=== PATIENT | male | born 1990 | race Caucasian/White ===

== ENCOUNTER 2023-07-07 01:41 | Inpatient (IN) | payer BC ==
[~2023-07-07] VITALS: Ht 177.8 cm; Wt 74.0 kg
[~2023-07-07 01:41] MED LIST: CIPR-202 PO; FOLI0.4T6 PO; PANT-47 PO; POTA-366 PO; THIA50TA10 PO
[2023-07-07 02:04] LABS: BASOPHILS % (AUTO) 0.3 % (0-1); EOSINOPHILS # (AUTO) 0.4 X10'3 (0-0.9); EOSINOPHILS % (AUTO) 3.5 % (0-6); HEMOGLOBIN 11.5 g/dl (14.0-17.9); LYMPHOCYTES # (AUTO) 1.9 X10'3 (1.1-4.8); LYMPHOCYTES % (AUTO) 15.7 % (21-51); MEAN CORPUSCULAR HEMOGLOBIN 31.7 PG (27.0-31.0); MEAN CORPUSCULAR HGB CONC 33.7 g/dL (33.0-36.5); MEAN CORPUSCULAR VOLUME 94.1 FL (78-98); MEAN PLATELET VOLUME 7.7 FL (7.4-10.4); MONOCYTES # (AUTO) 1.7 X10'3 (0-0.9); NEUTROPHILS # (AUTO) 7.9 X10'3 (1.8-7.7); NEUTROPHILS % (AUTO) 66.5 % (42-75); PLATELET COUNT 410 X10'3 (140-440); RED BLOOD COUNT 3.62 X10'6 (4.70-6.10); RED CELL DISTRIBUTION WIDTH 14.1 % (11.5-14.5); WHITE BLOOD COUNT 11.9 X10'3 (4.5-11.0)
[2023-07-07] MEDS ORDERED: ondansetron/PF 4mg/2ml inj IV ONE (02:05)
[2023-07-07] MEDS ORDERED: morphine 4 MG/ML inj SYRINge IV ONE ×4 (02:05→07:25)
[2023-07-07 02:18] LABS: ALANINE AMINOTRANSFERASE 22 U/L (12-78); ALBUMIN 2.9 G/DL (3.4-5.0); ALBUMIN/GLOBULIN RATIO 0.6 (1.1-1.5); ALKALINE PHOSPHATASE 167 IU/L (46-116); AMYLASE 141 U/L (25-115); ANION GAP 7 (8-16); ASPARTATE AMINO TRANSFERASE 29 U/L (10-37); BILIRUBIN,TOTAL 0.2 MG/DL (0.1-1.0); BLOOD UREA NITROGEN 1 MG/DL (7-18); BUN/CREATININE RATIO 1.5 (10.0-20.0); CHLORIDE 97 MMOL/L (99-107); CREATININE 0.68 MG/DL (0.60-1.10); GLUCOSE 121 MG/DL (70-104); SODIUM 134 MMOL/L (135-145); TOTAL CARBON DIOXIDE 30.1 MMOL/L (24-32); TOTAL PROTEIN 7.4 G/DL (6.4-8.2); eCRCL 160 ML/MIN; eGFR > 90 ML/MIN
[2023-07-07 02:25] LABS: LIPASE 365 U/L (16-77)
[2023-07-07 02:27] LABS: POTASSIUM 2.8 MMOL/L (3.5-5.1)
[2023-07-07] MEDS ORDERED: potassium Cl 40MEQ/1/2NS 520ml 520 ML IV ONE (03:20)
[2023-07-07] MEDS ORDERED: normal saline 1000ML IV soln IVB ONE (03:20)
[2023-07-07] MEDS ORDERED: potassium Cl 40MEQ/1/2NS 520ml 520 ML IV PRN ×2 (08:15→09:40)
[2023-07-07] MEDS ORDERED: magnesium 4gm in 100ml NS 100 ML IV PRN ×2 (08:15→09:40)
[2023-07-07] MEDS ORDERED: potassium Cl 20 mEq SR tablet PO PRN ×4 (08:15→09:40)
[2023-07-07] MEDS ORDERED: magnesium Cl slow-release 64mg tablet PO PRN ×2 (08:15→09:40)
[2023-07-07] MEDS ORDERED: magnesium hydroxide 30ml (MOM) UD suspension PO PRN (09:40)
[2023-07-07] MEDS ORDERED: mag hydrox/Alum hydrox/simeth 30ml oral suspension PO PRN (09:40)
[2023-07-07] MEDS ORDERED: magnesium 2GM in 50ml NS 50 ML IV PRN (09:40)
[2023-07-07] MEDS ORDERED: HYDROcodone/acetaminophen 5mg/325mg tablet PO PRN (09:40)
[2023-07-07] MEDS ORDERED: HYDROmorphone/PF 0.2 MG/ML SYRINGE IV PRN (09:40)
[2023-07-07] MEDS ORDERED: acetaminophen 325mg tablet PO PRN (09:40)
[2023-07-07] MEDS: dextrose 5%-1/2 normal saline 1,000 ML IV SCH ×3 (12:08→22:06)
[2023-07-07] MEDS: HYDROmorphone inj. 0.5 MG/0.5 ML DISP.SYRIN IV PRN ×3 (12:13→20:05)
[2023-07-07] MEDS ORDERED: FOLI0.8T3 PO (13:17)
[2023-07-07] MEDS ORDERED: CIPR500T5 PO (13:18)
[2023-07-07] MEDS ORDERED: POTA-366 PO (13:19)
[2023-07-07] MEDS ORDERED: PANT40TA54 PO (13:19)
[2023-07-07] MEDS ORDERED: IBUP-1985 PO (13:20)
[2023-07-07] MEDS ORDERED: non-formulary drug (Ibuprofen 200 MG) PO PRN (13:30)
--- NOTE | 2023-07-07 13:38 | NUR ---
BROUGHT PT WARM PACK OF CHUX FOR ABDOMEN.
[2023-07-07] MEDS: HYDROcodone/acetaminophen 10/325mg tab PO PRN ×3 (13:44→22:36)
[2023-07-07] MEDS: ondansetron/PF 4mg/2ml inj IV PRN (13:44)
[2023-07-07] MEDS ORDERED: ibuprofen 200mg tablet PO PRN (14:14)
[2023-07-07 16:28] LABS: ALANINE AMINOTRANSFERASE 18 U/L (12-78); ALBUMIN 2.5 G/DL (3.4-5.0); ALBUMIN/GLOBULIN RATIO 0.6 (1.1-1.5); ALKALINE PHOSPHATASE 129 IU/L (46-116); ANION GAP 3 (8-16); ASPARTATE AMINO TRANSFERASE 26 U/L (10-37); BILIRUBIN,TOTAL 0.3 MG/DL (0.1-1.0); BLOOD UREA NITROGEN 1 MG/DL (7-18); BUN/CREATININE RATIO 1.9 (10.0-20.0); CALCIUM 8.4 MG/DL (8.5-10.1); CHLORIDE 105 MMOL/L (99-107); CREATININE 0.54 MG/DL (0.60-1.10); GLUCOSE 101 MG/DL (70-104); POTASSIUM 3.1 MMOL/L (3.5-5.1); SODIUM 137 MMOL/L (135-145); TOTAL CARBON DIOXIDE 29.2 MMOL/L (24-32); TOTAL PROTEIN 6.5 G/DL (6.4-8.2); eCRCL 201 ML/MIN; eGFR > 90 ML/MIN
[2023-07-07] MEDS: docusate sod 100mg capsule PO SCH (19:49)
[2023-07-07] MEDS: K and/or MAG REPLACEMENT MC SCH (19:49)
[2023-07-07] MEDS: ciprofloxacin 250mg tablet PO SCH (20:04)
--- NOTE | 2023-07-07 21:23 | NUR ---
RN NOT ANSWERING PHONE FOR REPORT, ANOTHER WILL LOOK FOR HER AND HAVE HER CALL BACK
--- NOTE | 2023-07-07 21:45 | NUR ---
PATIENT ADMITTED TO ROOM 4010A FROM ER FOR ACUTE PANCREATITIS. PLACED COMFORTABLE IN BED. VITAL SIGNS TAKEN AND RECORDED.
[2023-07-07 22:30] VITALS: RESP 18; O2SAT 98
[2023-07-07 22:45] VITALS: BP 161/97; PULSE 85; RESP 20; TEMP 98.7; O2SAT 95
[2023-07-08] MEDS: HYDROmorphone inj. 0.5 MG/0.5 ML DISP.SYRIN IV PRN ×6 (00:57→21:57)
[2023-07-08] MEDS: HYDROcodone/acetaminophen 10/325mg tab PO PRN ×5 (03:06→20:38)
[2023-07-08 06:00] VITALS: BP 159/108; PULSE 79; RESP 16; TEMP 97.2; O2SAT 97
--- NOTE | 2023-07-08 06:30 | NUR ---
Problems reprioritized. Patient report given, questions answered & plan of care reviewed with MARTIN CLARK.
--- NOTE | 2023-07-08 07:02 | NUR ---
Patient in room ORTHO 4010. I have received report from Mari Guerra RN and had the opportunity to ask questions and assume patient care.
[2023-07-08] MEDS: ciprofloxacin 250mg tablet PO SCH ×2 (07:36→19:38)
[2023-07-08] MEDS: docusate sod 100mg capsule PO SCH ×2 (07:37→19:38)
[2023-07-08] MEDS: folic acid 0.4mg tablet PO SCH (07:37)
[2023-07-08] MEDS: potassium Cl 20 mEq SR tablet PO SCH (07:38)
[2023-07-08] MEDS: pantoprazole 40mg Tablet.DR PO SCH (07:38)
[2023-07-08] MEDS: enoxaparin 40mg/0.4ml syringe SUBCUT SCH (07:39)
[2023-07-08 07:50] LABS: BASOPHILS % (AUTO) 0.3 % (0-1); EOSINOPHILS # (AUTO) 0.3 X10'3 (0-0.9); EOSINOPHILS % (AUTO) 2.7 % (0-6); HEMOGLOBIN 11.4 g/dl (14.0-17.9); INR 1.1 INR; LYMPHOCYTES # (AUTO) 1.8 X10'3 (1.1-4.8); LYMPHOCYTES % (AUTO) 17.5 % (21-51); MEAN CORPUSCULAR HEMOGLOBIN 31.5 PG (27.0-31.0); MEAN CORPUSCULAR HGB CONC 33.6 g/dL (33.0-36.5); MEAN CORPUSCULAR VOLUME 93.8 FL (78-98); MEAN PLATELET VOLUME 7.8 FL (7.4-10.4); MONOCYTES # (AUTO) 1.2 X10'3 (0-0.9); MONOCYTES % (AUTO) 11.9 % (2-12); NEUTROPHILS # (AUTO) 6.8 X10'3 (1.8-7.7); NEUTROPHILS % (AUTO) 67.6 % (42-75); PLATELET COUNT 489 X10'3 (140-440); PROTHROMBIN TIME 11.6 SECONDS (9.0-12.0); RED BLOOD COUNT 3.62 X10'6 (4.70-6.10); RED CELL DISTRIBUTION WIDTH 14.4 % (11.5-14.5); WHITE BLOOD COUNT 10.1 X10'3 (4.5-11.0)
[2023-07-08 08:00] VITALS: RESP 16; O2SAT 97
[2023-07-08] MEDS: K and/or MAG REPLACEMENT MC SCH ×2 (08:00→19:27)
[2023-07-08 08:28] LABS: ALANINE AMINOTRANSFERASE 22 U/L (12-78); ALBUMIN 2.8 G/DL (3.4-5.0); ALBUMIN/GLOBULIN RATIO 0.6 (1.1-1.5); ALKALINE PHOSPHATASE 145 IU/L (46-116); AMYLASE 143 U/L (25-115); ANION GAP 6 (8-16); ASPARTATE AMINO TRANSFERASE 22 U/L (10-37); BILIRUBIN,TOTAL 0.3 MG/DL (0.1-1.0); BLOOD UREA NITROGEN 3 MG/DL (7-18); BUN/CREATININE RATIO 4.5 (10.0-20.0); CALCIUM 9.5 MG/DL (8.5-10.1); CHLORIDE 101 MMOL/L (99-107); CREATININE 0.66 MG/DL (0.60-1.10); FERRITIN 587 NG/ML (26-388); GLUCOSE 90 MG/DL (70-104); MAGNESIUM 2.4 MG/DL (1.5-2.4); PHOSPHORUS 3.8 MG/DL (2.3-4.5); POTASSIUM 3.9 MMOL/L (3.5-5.1); SODIUM 138 MMOL/L (135-145); TOTAL CARBON DIOXIDE 31.5 MMOL/L (24-32); TOTAL PROTEIN 7.5 G/DL (6.4-8.2); eCRCL 164 ML/MIN; eGFR > 90 ML/MIN
[2023-07-08 09:01] LABS: LIPASE 310 U/L (16-77)
[2023-07-08 09:23] VITALS: RESP 16; O2SAT 97
[2023-07-08 10:00] VITALS: BP 146/106; PULSE 80; RESP 14; TEMP 97.7; O2SAT 99
[2023-07-08 11:20] LABS: % IRON SATURATION 7 % (11-46); IRON 15 UG/DL (53-167); TOTAL IRON BINDING CAPACITY 222 UG/DL (259-388)
--- NOTE | 2023-07-08 14:45 | NUR ---
CLINICAL NURSING PROFESSOR documentation: I have reviewed and agree with all interventions, assessments performed and documented by Ewelina Garcia LVN.
[2023-07-08] MEDS: dextrose 5%-1/2 normal saline 1,000 ML IV SCH (15:40)
[2023-07-08 18:00] VITALS: BP 125/88; PULSE 70; RESP 14; TEMP 98.6; O2SAT 96
[2023-07-08] MEDS: ondansetron/PF 4mg/2ml inj IV PRN (19:40)
[2023-07-08 22:00] VITALS: BP 138/104; PULSE 71; RESP 16; TEMP 98.1; O2SAT 99
[2023-07-09] MEDS: HYDROcodone/acetaminophen 10/325mg tab PO PRN ×6 (00:44→21:15)
[2023-07-09] MEDS: HYDROmorphone inj. 0.5 MG/0.5 ML DISP.SYRIN IV PRN ×6 (01:53→23:21)
[2023-07-09] MEDS: dextrose 5%-1/2 normal saline 1,000 ML IV SCH ×2 (01:57→13:11)
--- NOTE | 2023-07-09 05:43 | NUR ---
I agree wit FOREIGN BANKNOTE TELLER physical assessment.
[2023-07-09 06:00] VITALS: BP 131/95; PULSE 66; RESP 16; TEMP 97.3; O2SAT 98
[2023-07-09 06:11] LABS: BASOPHILS % (AUTO) 0.3 % (0-1); EOSINOPHILS # (AUTO) 0.3 X10'3 (0-0.9); EOSINOPHILS % (AUTO) 3.2 % (0-6); HEMATOCRIT 33.6 % (42.0-52.0); HEMOGLOBIN 11.3 g/dl (14.0-17.9); INR 1.2 INR; LYMPHOCYTES # (AUTO) 1.4 X10'3 (1.1-4.8); LYMPHOCYTES % (AUTO) 15.6 % (21-51); MEAN CORPUSCULAR HEMOGLOBIN 31.5 PG (27.0-31.0); MEAN CORPUSCULAR HGB CONC 33.7 g/dL (33.0-36.5); MEAN CORPUSCULAR VOLUME 93.5 FL (78-98); MEAN PLATELET VOLUME 7.4 FL (7.4-10.4); MONOCYTES # (AUTO) 0.6 X10'3 (0-0.9); MONOCYTES % (AUTO) 6.9 % (2-12); NEUTROPHILS # (AUTO) 6.9 X10'3 (1.8-7.7); PLATELET COUNT 486 X10'3 (140-440); PROTHROMBIN TIME 12.4 SECONDS (9.0-12.0); RED CELL DISTRIBUTION WIDTH 14.2 % (11.5-14.5); WHITE BLOOD COUNT 9.3 X10'3 (4.5-11.0)
[2023-07-09 06:25] LABS: ALANINE AMINOTRANSFERASE 18 U/L (12-78); ALBUMIN 2.8 G/DL (3.4-5.0); ALBUMIN/GLOBULIN RATIO 0.6 (1.1-1.5); ALKALINE PHOSPHATASE 140 IU/L (46-116); AMYLASE 117 U/L (25-115); ANION GAP 6 (8-16); ASPARTATE AMINO TRANSFERASE 18 U/L (10-37); BILIRUBIN,TOTAL 0.3 MG/DL (0.1-1.0); BLOOD UREA NITROGEN 4 MG/DL (7-18); BUN/CREATININE RATIO 6.1 (10.0-20.0); CALCIUM 9.4 MG/DL (8.5-10.1); CHLORIDE 99 MMOL/L (99-107); CREATININE 0.66 MG/DL (0.60-1.10); GLUCOSE 98 MG/DL (70-104); MAGNESIUM 2.3 MG/DL (1.5-2.4); PHOSPHORUS 4.5 MG/DL (2.3-4.5); POTASSIUM 3.7 MMOL/L (3.5-5.1); SODIUM 135 MMOL/L (135-145); TOTAL CARBON DIOXIDE 30.3 MMOL/L (24-32); TOTAL PROTEIN 7.3 G/DL (6.4-8.2); eCRCL 164 ML/MIN; eGFR > 90 ML/MIN
--- NOTE | 2023-07-09 06:25 | NUR ---
Problems reprioritized. Patient report given, questions answered & plan of care reviewed with Megan. Osvaldo HAYS.
[2023-07-09 06:26] LABS: LIPASE 295 U/L (16-77)
[2023-07-09] MEDS: K and/or MAG REPLACEMENT MC SCH ×2 (07:18→18:26)
[2023-07-09] MEDS: ciprofloxacin 250mg tablet PO SCH ×2 (08:38→19:19)
[2023-07-09] MEDS: pantoprazole 40mg Tablet.DR PO SCH (08:38)
[2023-07-09] MEDS: docusate sod 100mg capsule PO SCH ×2 (08:38→19:20)
[2023-07-09] MEDS: folic acid 0.4mg tablet PO SCH (08:39)
[2023-07-09] MEDS: potassium Cl 20 mEq SR tablet PO SCH (08:39)
[2023-07-09] MEDS: enoxaparin 40mg/0.4ml syringe SUBCUT SCH (08:40)
[2023-07-09 10:00] VITALS: BP 138/100; PULSE 66; RESP 16; TEMP 97.6; O2SAT 96
[2023-07-09 11:56] VITALS: BP 132/97
[2023-07-09 18:00] VITALS: BP 134/72; PULSE 77; RESP 17; TEMP 97.3; O2SAT 99
--- NOTE | 2023-07-09 18:30 | NUR ---
Report given to Chi CLARK, pt walked hallways and still having pain.
[2023-07-09 22:00] VITALS: BP 136/100; PULSE 72; RESP 19; TEMP 97.6; O2SAT 100
[2023-07-10] VITALS (7 sets, daily range): BP systolic 126–166; BP diastolic 79–98; PULSE 75–88; RESP 14–20; TEMP 97.6–98.6; O2SAT 96–99
[2023-07-10] MEDS: dextrose 5%-1/2 normal saline 1,000 ML IV SCH ×3 (01:51→17:49)
[2023-07-10] MEDS: HYDROcodone/acetaminophen 10/325mg tab PO PRN ×5 (01:51→22:13)
[2023-07-10] MEDS: HYDROmorphone inj. 0.5 MG/0.5 ML DISP.SYRIN IV PRN ×2 (03:33→09:00)
[2023-07-10 05:15] LABS: INR 1.3 INR; PROTHROMBIN TIME 13.5 SECONDS (9.0-12.0)
[2023-07-10 05:19] LABS: LYMPHOCYTES # (AUTO) 1.5 X10'3 (1.1-4.8); MEAN CORPUSCULAR VOLUME 92.7 FL (78-98); NEUTROPHILS # (AUTO) 7.4 X10'3 (1.8-7.7)
[2023-07-10 05:21] LABS: BASOPHILS % (AUTO) 0.4 % (0-1); EOSINOPHILS # (AUTO) 0.4 X10'3 (0-0.9); EOSINOPHILS % (AUTO) 3.8 % (0-6); HEMATOCRIT 35.1 % (42.0-52.0); MEAN CORPUSCULAR HEMOGLOBIN 31.7 PG (27.0-31.0); MEAN CORPUSCULAR HGB CONC 34.3 g/dL (33.0-36.5); MEAN PLATELET VOLUME 7.6 FL (7.4-10.4); MONOCYTES # (AUTO) 0.8 X10'3 (0-0.9); MONOCYTES % (AUTO) 7.6 % (2-12); NEUTROPHILS % (AUTO) 73.2 % (42-75); PLATELET COUNT 576 X10'3 (140-440); RED BLOOD COUNT 3.79 X10'6 (4.70-6.10); RED CELL DISTRIBUTION WIDTH 14.2 % (11.5-14.5); WHITE BLOOD COUNT 10.1 X10'3 (4.5-11.0)
[2023-07-10] MEDS: ondansetron/PF 4mg/2ml inj IV PRN (05:31)
[2023-07-10 05:33] LABS: ALANINE AMINOTRANSFERASE 17 U/L (12-78); ALBUMIN 3.1 G/DL (3.4-5.0); ALBUMIN/GLOBULIN RATIO 0.6 (1.1-1.5); ALKALINE PHOSPHATASE 145 IU/L (46-116); AMYLASE 118 U/L (25-115); ANION GAP 6 (8-16); ASPARTATE AMINO TRANSFERASE 18 U/L (10-37); BILIRUBIN,TOTAL 0.2 MG/DL (0.1-1.0); BLOOD UREA NITROGEN 3 MG/DL (7-18); BUN/CREATININE RATIO 4.4 (10.0-20.0); CALCIUM 9.9 MG/DL (8.5-10.1); CHLORIDE 98 MMOL/L (99-107); CREATININE 0.68 MG/DL (0.60-1.10); GLUCOSE 100 MG/DL (70-104); MAGNESIUM 2.4 MG/DL (1.5-2.4); PHOSPHORUS 4.9 MG/DL (2.3-4.5); POTASSIUM 3.9 MMOL/L (3.5-5.1); SODIUM 134 MMOL/L (135-145); TOTAL CARBON DIOXIDE 29.8 MMOL/L (24-32); eCRCL 160 ML/MIN; eGFR > 90 ML/MIN
[2023-07-10 05:37] LABS: LIPASE 306 U/L (16-77)
--- NOTE | 2023-07-10 05:52 | NUR ---
I agree with [facility] physical assessmen.
--- NOTE | 2023-07-10 06:17 | NUR ---
Problems reprioritized. Patient report given, questions answered & plan of care reviewed with Estela DONATO.
--- NOTE | 2023-07-10 06:41 | NUR ---
Patient in room ORTHO 4010. I have received report from Lawdingo BRAKE PRESS OPERATOR and had the opportunity to ask questions and assume patient care.
[2023-07-10] MEDS: K and/or MAG REPLACEMENT MC SCH ×2 (08:00→20:00)
[2023-07-10] MEDS: ciprofloxacin 250mg tablet PO SCH ×2 (08:20→19:36)
[2023-07-10] MEDS: pantoprazole 40mg Tablet.DR PO SCH (08:20)
[2023-07-10] MEDS: potassium Cl 20 mEq SR tablet PO SCH (08:20)
[2023-07-10] MEDS: enoxaparin 40mg/0.4ml syringe SUBCUT SCH (08:21)
[2023-07-10] MEDS: docusate sod 100mg capsule PO SCH ×2 (08:21→19:37)
[2023-07-10] MEDS: folic acid 0.4mg tablet PO SCH (08:21)
[2023-07-10 15:54] LABS: CHOL/HDL RATIO 4.6 (0.00-4.99); CHOLESTEROL 128 MG/DL (0-200); HDL CHOLESTEROL 28 MG/DL (35-60); LDL CHOLESTEROL 73 MG/DL (50-100); TRIGLYCERIDES 99 MG/DL (20-135)
[2023-07-10] MEDS ORDERED: iohexol 300mg/ml 100ml inj. ONE (16:56)
[2023-07-10] MEDS ORDERED: LIPASE/PROTEASE/AMYLASE 16,800 UNIT CAPSULE.DR PO SCH (17:30)
[2023-07-10] MEDS: LIPASE/PROTEASE/AMYLASE 4,200 unit CAPSULE.DR PO SCH (18:01)
--- NOTE | 2023-07-10 18:41 | NUR ---
patient iv pain medication DC by md. pain consistent during my shift. 07/05 Pendroy 10 mg given q 4 hours but patient denies any relief. MD notified. Patient continues on D5/NS and NPO.
--- NOTE | 2023-07-11 01:09 | NUR ---
page to hospitalist implementation specialist: "pt in 4010A here for pancreatitis reporting 10/10 abd pain. had norco 10/325x1 approx 2 hours ago, ineffective. requesting additional pain medication. Contreras ext [phone]"
[2023-07-11] MEDS: HYDROmorphone inj. 0.5 MG/0.5 ML DISP.SYRIN IV PRN ×3 (01:43→10:02)
[2023-07-11] MEDS: HYDROcodone/acetaminophen 10/325mg tab PO PRN ×4 (03:15→12:46)
--- NOTE | 2023-07-11 06:24 | NUR ---
report to Estela PARQUET FLOOR LAYER
[2023-07-11 06:26] LABS: BASOPHILS # (AUTO) 0.1 X10'3 (0-0.2); BASOPHILS % (AUTO) 0.5 % (0-1); EOSINOPHILS # (AUTO) 0.2 X10'3 (0-0.9); HEMOGLOBIN 12.2 g/dl (14.0-17.9); LYMPHOCYTES # (AUTO) 1.7 X10'3 (1.1-4.8); LYMPHOCYTES % (AUTO) 12.9 % (21-51); MONOCYTES # (AUTO) 0.7 X10'3 (0-0.9); MONOCYTES % (AUTO) 5.2 % (2-12); RED CELL DISTRIBUTION WIDTH 14.4 % (11.5-14.5)
[2023-07-11 06:30] LABS: EOSINOPHILS % (AUTO) 1.5 % (0-6); HEMATOCRIT 35.9 % (42.0-52.0); MEAN CORPUSCULAR HEMOGLOBIN 31.4 PG (27.0-31.0); MEAN CORPUSCULAR VOLUME 92.4 FL (78-98); MEAN PLATELET VOLUME 7.8 FL (7.4-10.4); NEUTROPHILS # (AUTO) 10.4 X10'3 (1.8-7.7); NEUTROPHILS % (AUTO) 79.9 % (42-75); PLATELET COUNT 664 X10'3 (140-440); RED BLOOD COUNT 3.89 X10'6 (4.70-6.10)
[2023-07-11 06:37] LABS: INR 1.6 INR; PROTHROMBIN TIME 16.4 SECONDS (9.0-12.0)
[2023-07-11 06:59] LABS: ALANINE AMINOTRANSFERASE 14 U/L (12-78); ALBUMIN 3.2 G/DL (3.4-5.0); ALBUMIN/GLOBULIN RATIO 0.7 (1.1-1.5); ALKALINE PHOSPHATASE 137 IU/L (46-116); AMYLASE 108 U/L (25-115); ANION GAP 11 (8-16); ASPARTATE AMINO TRANSFERASE 12 U/L (10-37); BILIRUBIN,TOTAL 0.3 MG/DL (0.1-1.0); BLOOD UREA NITROGEN 6 MG/DL (7-18); BUN/CREATININE RATIO 8.1 (10.0-20.0); CALCIUM 9.8 MG/DL (8.5-10.1); CHLORIDE 95 MMOL/L (99-107); CREATININE 0.74 MG/DL (0.60-1.10); GLUCOSE 98 MG/DL (70-104); MAGNESIUM 2.3 MG/DL (1.5-2.4); PHOSPHORUS 4.8 MG/DL (2.3-4.5); POTASSIUM 3.5 MMOL/L (3.5-5.1); SODIUM 133 MMOL/L (135-145); TOTAL CARBON DIOXIDE 27.2 MMOL/L (24-32); eCRCL 147 ML/MIN; eGFR > 90 ML/MIN
[2023-07-11 07:02] VITALS: BP 123/75; PULSE 76; RESP 17; TEMP 98.9; O2SAT 98
[2023-07-11 07:10] LABS: LIPASE 238 U/L (16-77)
[2023-07-11] MEDS: folic acid 0.4mg tablet PO SCH (07:18)
[2023-07-11] MEDS: ciprofloxacin 250mg tablet PO SCH (07:18)
[2023-07-11] MEDS: pantoprazole 40mg Tablet.DR PO SCH (07:18)
[2023-07-11] MEDS: potassium Cl 20 mEq SR tablet PO SCH (07:18)
[2023-07-11] MEDS: LIPASE/PROTEASE/AMYLASE 4,200 unit CAPSULE.DR PO SCH ×2 (07:19→12:47)
[2023-07-11] MEDS: enoxaparin 40mg/0.4ml syringe SUBCUT SCH (07:19)
[2023-07-11] MEDS: K and/or MAG REPLACEMENT MC SCH (08:00)
[2023-07-11] MEDS: docusate sod 100mg capsule PO SCH (08:00)
[2023-07-11 08:56] LABS: LARGE PLATELETS FEW; PLATELET ESTIMATE INCREASED
[2023-07-11 10:00] VITALS: BP 136/91; PULSE 88; RESP 15; TEMP 98.1; O2SAT 98
[2023-07-11] MEDS ORDERED: LIPA1CAP28 PO (10:28)
[2023-07-11 12:46] VITALS: RESP 17
--- NOTE | 2023-07-11 13:30 | NUR ---
I have reviewed and agree with interventions, assessments, and documentation by Estela Sandoval LVN.
[2023-07-11] MEDS ORDERED: METR-159 PO (14:50)
--- NOTE | 2023-07-11 16:18 | NUR ---
Patient discharged home medications sent to pharmacy. I followed up with social welfare research worker and asked them to send out for a referral to PCP. Patients lab values and condition need to be followed up. Expressed concerns to family. Education provided to patient and referrals for outpatient rehabs and help with opitate addiction provided to patient. IV removed. All discharge paper work signed and left with patient.
== END 2023-07-11 14:18 | disposition home or self-care (01) | DRG 439 ==
LOC: ER 01:41 → ED HOLD 09:42 → ORTHO 4S 21:45
PROVIDERS: ADMIT Internal Medicine; ATTEND Internal Medicine
DX: K85.20 Alcohol induced acute pancreatitis without necrosis or infection (principal); K86.3 Pseudocyst of pancreas; E87.6 Hypokalemia; D63.8 Anemia in other chronic diseases classified elsewhere; Z79.1 Long term (current) use of non-steroidal anti-inflammatories (NSAID); Z79.899 Other long term (current) drug therapy
CPT/HCPCS: 36415; 74176; 74178; 80053; 80061; 82150; 82607; 82728; 83540; 83550; 83690; 83735; 84100; 85008; 85025; 85610; 87081; 99285; G0378; J1170; J1650; J2270; J2405; J3480; J3490; J7030; J7042; Q9967

== ENCOUNTER 2023-07-31 06:28 | Inpatient (IN) | payer BC ==
[~2023-07-31] VITALS: Ht 177.8 cm; Wt 75.0 kg
[~2023-07-31 06:28] MED LIST changes: -CIPR-202 PO; +CIPR500T5 PO; -FOLI0.4T6 PO; +FOLI0.8T3 PO; +LIPA1CAP28 PO; -PANT-47 PO; +PANT40TA54 PO; -POTA-366 PO; -THIA50TA10 PO
[2023-07-31 06:31] VITALS: TEMP 97.8
[2023-07-31] MEDS ORDERED: ondansetron/PF 4mg/2ml inj IV ONE (08:40)
[2023-07-31] MEDS ORDERED: ringers solution, lacted 1,000 ML IV ONE (08:40)
[2023-07-31] MEDS ORDERED: morphine 4 MG/ML inj SYRINge IV ONE ×2 (08:40→12:35)
[2023-07-31 09:25] LABS: BASOPHILS % (AUTO) 0.5 % (0-1); EOSINOPHILS # (AUTO) 0.3 X10'3 (0-0.9); EOSINOPHILS % (AUTO) 3.4 % (0-6); HEMATOCRIT 37.1 % (42.0-52.0); HEMOGLOBIN 12.3 g/dl (14.0-17.9); LYMPHOCYTES # (AUTO) 2.3 X10'3 (1.1-4.8); MEAN CORPUSCULAR HEMOGLOBIN 30.7 PG (27.0-31.0); MEAN CORPUSCULAR HGB CONC 33.3 g/dL (33.0-36.5); MEAN CORPUSCULAR VOLUME 92.2 FL (78-98); MEAN PLATELET VOLUME 9.1 FL (7.4-10.4); MONOCYTES # (AUTO) 0.7 X10'3 (0-0.9); MONOCYTES % (AUTO) 9.1 % (2-12); NEUTROPHILS # (AUTO) 4.5 X10'3 (1.8-7.7); PLATELET COUNT 225 X10'3 (140-440); RED BLOOD COUNT 4.02 X10'6 (4.70-6.10); RED CELL DISTRIBUTION WIDTH 14.8 % (11.5-14.5); WHITE BLOOD COUNT 7.8 X10'3 (4.5-11.0)
[2023-07-31 09:27] LABS: ALANINE AMINOTRANSFERASE 24 U/L (12-78); ALBUMIN 3.9 G/DL (3.4-5.0); ALBUMIN/GLOBULIN RATIO 1.1 (1.1-1.5); ALKALINE PHOSPHATASE 100 IU/L (46-116); ANION GAP 8 (8-16); ASPARTATE AMINO TRANSFERASE 18 U/L (10-37); BILIRUBIN,TOTAL 0.3 MG/DL (0.1-1.0); BLOOD UREA NITROGEN 4 MG/DL (7-18); BUN/CREATININE RATIO 5.8 (10.0-20.0); CALCIUM 9.1 MG/DL (8.5-10.1); CHLORIDE 99 MMOL/L (99-107); CREATININE 0.69 MG/DL (0.60-1.10); GLUCOSE 83 MG/DL (70-104); LIPASE 25 U/L (16-77); POTASSIUM 3.5 MMOL/L (3.5-5.1); SODIUM 136 MMOL/L (135-145); TOTAL CARBON DIOXIDE 28.6 MMOL/L (24-32); TOTAL PROTEIN 7.6 G/DL (6.4-8.2); eCRCL 157 ML/MIN; eGFR > 90 ML/MIN
[2023-07-31 10:12] LABS: BILIRUBIN,URINE NEGATIVE (Neg); CLARITY,URINE CLEAR (Clear); COLOR,URINE STRAW (Yellow); GLUCOSE, URINE NEGATIVE (Neg); KETONES,URINE NEGATIVE (Neg); LEUKOCYTE ESTERASE ,URINE NEGATIVE (Neg); NITRITES, URINE NEGATIVE (Neg); OCCULT BLOOD,URINE NEGATIVE (Neg); PROTEIN,URINE NEGATIVE (Neg); UROBILINOGEN,URINE 0.2 E.U/dL (0.2-1.0)
[2023-07-31] MEDS ORDERED: ketorolac trometh. 30mg/ml inj. IV ONE (10:15)
[2023-07-31 10:16] LABS: UA COLLECTION TYPE CLN CATCH MIDSTREAM
[2023-07-31] MEDS ORDERED: ketorolac tromethamine 15mg/ml inj. IV ONE (10:20)
[2023-07-31 12:02] LABS: URINE AMPHETAMINE SCREEN NEGATIVE (Neg); URINE BARBITUATE SCREEN NEGATIVE (Neg); URINE BENZODIAZEPINES SCREEN NEGATIVE (Neg); URINE CANNABINOID SCREEN NEGATIVE (Neg); URINE COCAINE SCREEN POSITIVE (Neg); URINE METHADONE SCREEN NEGATIVE (Neg); URINE OPIATE SCREEN POSITIVE (Neg); URINE PHENCYCLIDINE SCREEN NEGATIVE (Neg)
[2023-07-31] MEDS ORDERED: famotidine/PF 10 mg/ml inj IV ONE (12:40)
[2023-07-31] MEDS ORDERED: mag hydrox/Alum hydrox/simeth 30ml oral suspension PO ONE (12:40)
[2023-07-31] MEDS ORDERED: potassium Cl 20 mEq SR tablet PO PRN ×2 (14:30)
[2023-07-31] MEDS ORDERED: normal saline 1000ml 1,000 ML IV SCH (14:30)
[2023-07-31] MEDS ORDERED: docusate sod 100mg capsule PO PRN (14:30)
[2023-07-31] MEDS ORDERED: magnesium hydroxide 30ml (MOM) UD suspension PO PRN (14:30)
[2023-07-31] MEDS ORDERED: acetaminophen 325mg tablet PO PRN (14:30)
[2023-07-31] MEDS ORDERED: mag hydrox/Alum hydrox/simeth 30ml oral suspension PO PRN (14:30)
[2023-07-31] MEDS ORDERED: ondansetron/PF 4mg/2ml inj IV PRN (14:30)
[2023-07-31] MEDS ORDERED: morphine 2 MG/ML inj. syringe IV PRN ×2 (14:30)
[2023-07-31] MEDS ORDERED: LORazepam 2 mg/ml vial IV PRN (14:30)
[2023-07-31] MEDS ORDERED: potassium Cl 40MEQ/1/2NS 520ml 520 ML IV PRN (14:30)
[2023-07-31] MEDS ORDERED: HYDROcodone/acetaminophen 5mg/325mg tablet PO PRN (14:30)
[2023-07-31] MEDS ORDERED: magnesium 4gm in 100ml NS 100 ML IV PRN (14:30)
[2023-07-31] MEDS ORDERED: magnesium Cl slow-release 64mg tablet PO PRN (14:30)
[2023-07-31 14:51] VITALS: BP 151/89; PULSE 82; RESP 17; O2SAT 99
[2023-07-31] MEDS ORDERED: HYDROmorphone 1 mg/ml syringe IV PRN (15:40)
[2023-07-31] MEDS ORDERED: oxyCODONE IR 5mg (immed. release) tablet PO PRN (15:40)
--- NOTE | 2023-07-31 15:51 | NUR ---
CALLED THE HOSPITALIST. PT DECIDED THAT HE WANTS TO LEAVE AMA. HE DOES NOT WANT TO MISS HIS APPT TOMORROW WITH HIS NEW PCP. MD OVIEDO
[2023-07-31 16:50] LABS: TRIGLYCERIDES 106 MG/DL (20-135)
== END 2023-07-31 17:14 | disposition left against medical advice (07) | DRG 439 ==
LOC: ER 06:29 → ED HOLD 14:38
PROVIDERS: ADMIT Family Medicine; ATTEND Family Medicine
DX: K85.90 Acute pancreatitis without necrosis or infection, unspecified (principal); K57.92 Diverticulitis of intestine, part unspecified, without perforation or abscess without bleeding; N13.30 Unspecified hydronephrosis; D64.9 Anemia, unspecified; K76.0 Fatty (change of) liver, not elsewhere classified; Z53.21 Procedure and treatment not carried out due to patient leaving prior to being seen by health care provider; F19.10 Other psychoactive substance abuse, uncomplicated; Z82.49 Family history of ischemic heart disease and other diseases of the circulatory system
CPT/HCPCS: 36415; 74176; 76700; 80053; 80305; 80320; 81003; 83605; 83690; 84478; 85025; 99285; G0378; J1885; J2270; J2405; J3490; J7030; J7120

== ENCOUNTER 2023-08-06 22:52 | Inpatient (IN) | payer BC ==
[~2023-08-06] VITALS: Ht 175.3 cm; Wt 75.7 kg
[~2023-08-06 22:52] MED LIST changes: -CIPR500T5 PO
[2023-08-06 23:22] LABS: BASOPHILS # (AUTO) 0.1 X10'3 (0-0.2); BASOPHILS % (AUTO) 0.7 % (0-1); EOSINOPHILS # (AUTO) 0.2 X10'3 (0-0.9); HEMATOCRIT 40.4 % (42.0-52.0); HEMOGLOBIN 13.3 g/dl (14.0-17.9); LYMPHOCYTES # (AUTO) 2.8 X10'3 (1.1-4.8); LYMPHOCYTES % (AUTO) 24.3 % (21-51); MEAN CORPUSCULAR HEMOGLOBIN 30.1 PG (27.0-31.0); MEAN CORPUSCULAR VOLUME 91.2 FL (78-98); MEAN PLATELET VOLUME 7.8 FL (7.4-10.4); MONOCYTES # (AUTO) 0.6 X10'3 (0-0.9); MONOCYTES % (AUTO) 5.3 % (2-12); NEUTROPHILS # (AUTO) 7.9 X10'3 (1.8-7.7); NEUTROPHILS % (AUTO) 67.7 % (42-75); PLATELET COUNT 363 X10'3 (140-440); RED BLOOD COUNT 4.43 X10'6 (4.70-6.10); RED CELL DISTRIBUTION WIDTH 14.7 % (11.5-14.5); WHITE BLOOD COUNT 11.6 X10'3 (4.5-11.0)
[2023-08-06] MEDS ORDERED: morphine 10mg/ml inj. IM ONE (23:30)
[2023-08-06 23:35] LABS: ALANINE AMINOTRANSFERASE 25 U/L (12-78); ALBUMIN/GLOBULIN RATIO 1.1 (1.1-1.5); ALKALINE PHOSPHATASE 127 IU/L (46-116); AMYLASE 54 U/L (25-115); ANION GAP 10 (8-16); ASPARTATE AMINO TRANSFERASE 20 U/L (10-37); BILIRUBIN,TOTAL 0.4 MG/DL (0.1-1.0); BLOOD UREA NITROGEN 5 MG/DL (7-18); CALCIUM 9.2 MG/DL (8.5-10.1); CHLORIDE 104 MMOL/L (99-107); CREATININE 0.83 MG/DL (0.60-1.10); GLUCOSE 132 MG/DL (70-104); LIPASE 33 U/L (16-77); POTASSIUM 3.7 MMOL/L (3.5-5.1); SODIUM 141 MMOL/L (135-145); TOTAL CARBON DIOXIDE 26.8 MMOL/L (24-32); TOTAL PROTEIN 7.8 G/DL (6.4-8.2); eCRCL 125 ML/MIN; eGFR > 90 ML/MIN
[2023-08-06] MEDS ORDERED: ondansetron 4mg rapidly disintigrating tab PO ONE (23:35)
[2023-08-06] MEDS ORDERED: iohexol 300mg/ml 100ml inj. ONE (23:53)
[2023-08-06] MEDS ORDERED: normal saline 1000ml 1,000 ML IV ONE (23:55)
[2023-08-07] MEDS ORDERED: HYDROmorphone inj. 0.5 MG/0.5 ML DISP.SYRIN IV ONE (00:30)
[2023-08-07] MEDS ORDERED: HYDROmorphone 1 mg/ml syringe IV ONE (01:55)
[2023-08-07] MEDS ORDERED: normal saline 1000ml 1,000 ML IV ONE (02:30)
[2023-08-07] MEDS ORDERED: NO HOME MEDS (02:37)
[2023-08-07] MEDS ORDERED: dextrose 50%-water 50ml dispensing syringe IV PRN (02:50)
[2023-08-07] MEDS ORDERED: HYDROcodone/acetaminophen 5mg/325mg tablet PO PRN (02:50)
[2023-08-07] MEDS ORDERED: metoclopramide 5 mg/ml inj IV PRN (02:50)
[2023-08-07] MEDS ORDERED: acetaminophen 650mg rectal suppository RC PRN (02:50)
[2023-08-07] MEDS ORDERED: acetaminophen 325mg tablet PO PRN ×2 (02:50)
[2023-08-07] MEDS ORDERED: haloperidol lactate 5mg/ml inj IM PRN (02:50)
[2023-08-07] MEDS ORDERED: ondansetron/PF 4mg/2ml inj IV PRN (02:50)
[2023-08-07] MEDS ORDERED: morphine 2 MG/ML inj. syringe IV PRN ×2 (02:50)
[2023-08-07] MEDS ORDERED: ondansetron 4mg rapidly disintigrating tab PO PRN (02:50)
[2023-08-07] MEDS ORDERED: LORazepam 2 mg/ml vial IV PRN (02:50)
[2023-08-07] MEDS ORDERED: haloperidol 5mg tablet PO PRN (02:50)
[2023-08-07] MEDS ORDERED: diphenhydrAMINE 25mg capsule PO PRN (02:50)
[2023-08-07] MEDS ORDERED: HYDROmorphone inj. 0.5 MG/0.5 ML DISP.SYRIN IV PRN (02:50)
[2023-08-07] MEDS ORDERED: mag hydrox/Alum hydrox/simeth 30ml oral suspension PO PRN (02:50)
[2023-08-07] MEDS ORDERED: bisacodyl 10mg suppository rectal RC PRN (02:50)
[2023-08-07] MEDS ORDERED: HYDROcodone/acetaminophen 10/325mg tab PO PRN (02:50)
[2023-08-07] MEDS ORDERED: diphenhydrAMINE 50 mg/ml inj IV PRN (02:50)
[2023-08-07] MEDS ORDERED: magnesium hydroxide 30ml (MOM) UD suspension PO PRN (02:50)
[2023-08-07] MEDS: normal saline 1000ml 1,000 ML IV SCH ×3 (03:08→19:10)
[2023-08-07 03:31] LABS: CREATINE KINASE 82 U/L (39-308); MAGNESIUM 2.1 MG/DL (1.5-2.4); PHOSPHORUS 4.1 MG/DL (2.3-4.5); PRO BRAIN NATRIURETIC PEPTIDE < 30 PG/ML (0-125); THYROID STIMULATING HORMONE 0.55 ulU/ml (0.34-4.50)
[2023-08-07 03:41] LABS: APTT 27 SECONDS (22-32); PROTHROMBIN TIME 10.4 SECONDS (9.0-12.0)
[2023-08-07 03:46] LABS: ETHANOL < 10 MG/DL (<10)
[2023-08-07] MEDS: HYDROmorphone 1 mg/ml syringe IV PRN ×6 (03:55→15:35)
[2023-08-07 04:05] LABS: BILIRUBIN,URINE NEGATIVE (Neg); CLARITY,URINE CLEAR (Clear); COLOR,URINE STRAW (Yellow); GLUCOSE, URINE NEGATIVE (Neg); KETONES,URINE NEGATIVE (Neg); LEUKOCYTE ESTERASE ,URINE NEGATIVE (Neg); NITRITES, URINE NEGATIVE (Neg); OCCULT BLOOD,URINE NEGATIVE (Neg); PH,URINE 5.5 (4.8-8.0); PROTEIN,URINE NEGATIVE (Neg); UROBILINOGEN,URINE 0.2 E.U/dL (0.2-1.0)
[2023-08-07 04:13] LABS: UA COLLECTION TYPE CLN CATCH MIDSTREAM
[2023-08-07 04:17] LABS: URINE AMPHETAMINE SCREEN NEGATIVE (Neg); URINE BARBITUATE SCREEN NEGATIVE (Neg); URINE BENZODIAZEPINES SCREEN NEGATIVE (Neg); URINE CANNABINOID SCREEN NEGATIVE (Neg); URINE COCAINE SCREEN POSITIVE (Neg); URINE METHADONE SCREEN NEGATIVE (Neg); URINE OPIATE SCREEN POSITIVE (Neg); URINE PHENCYCLIDINE SCREEN NEGATIVE (Neg)
[2023-08-07] MEDS: thiamine 100mg/ml 2ml inj. IV SCH ×3 (08:58→20:59)
[2023-08-07] MEDS: pantoprazole 40MG/NS 100ML BAG 100 ML IV SCH ×2 (09:01→20:59)
[2023-08-07] MEDS: docusate sod 100mg capsule PO SCH ×2 (09:02→20:59)
[2023-08-07] MEDS: heparin, porcine 5000 units/ml vial SQ SCH ×2 (09:08→21:00)
[2023-08-07] MEDS: folic acid 1mg/0.2ml inj IV SCH (09:31)
[2023-08-07 13:57] LABS: CHOL/HDL RATIO 2.7 (0.00-4.99); CHOLESTEROL 119 MG/DL (0-200); HDL CHOLESTEROL 44 MG/DL (35-60); LDL CHOLESTEROL 64 MG/DL (50-100); TRIGLYCERIDES 50 MG/DL (20-135)
[2023-08-07] MEDS ORDERED: naloxone 0.4 mg/ml inj IV PRN (14:15)
[2023-08-07] MEDS: HYDROmorph/NS 0.2 mg/ml PCA 100 ML IV SCH ×7 (15:00→23:51)
[2023-08-07] MEDS: LORazepam 2 mg/ml vial IV PRN ×2 (16:26→20:58)
--- NOTE | 2023-08-07 16:35 | NUR ---
Called Ortho to give report, nurse was unable to answer. Will call back.
--- NOTE | 2023-08-07 17:01 | NUR ---
Nurse is unable to be located. CN of ortho made aware. CN of ER also made aware.
--- NOTE | 2023-08-07 18:38 | NUR ---
Patient in room ORTHO 4021. I have received report from Estela CLARK and had the opportunity to ask questions and assume patient care.
[2023-08-07] MEDS ORDERED: temazepam 15mg capsule PO PRN (21:00)
[2023-08-07 22:00] VITALS: BP 131/93; PULSE 74; RESP 16; TEMP 97.5; O2SAT 98
--- NOTE | 2023-08-07 23:51 | NUR ---
Patient c/o 07/05 pain. Dilaudid cadd increased to 0.3 demand, see emar.
--- NOTE | 2023-08-08 00:57 | NUR ---
patient sleeping. Report given to Kyra HAYS
--- NOTE | 2023-08-08 01:00 | NUR ---
Patient in room ORTHO 4021. I have received report from MK and had the opportunity to ask questions and assume patient care.
[2023-08-08] MEDS: LORazepam 2 mg/ml vial IV PRN ×5 (01:48→19:21)
[2023-08-08] MEDS: HYDROmorph/NS 0.2 mg/ml PCA 100 ML IV SCH ×11 (03:00→23:00)
[2023-08-08 05:56] LABS: BASOPHILS % (AUTO) 0.5 % (0-1); EOSINOPHILS # (AUTO) 0.3 X10'3 (0-0.9); EOSINOPHILS % (AUTO) 4.5 % (0-6); HEMATOCRIT 32.2 % (42.0-52.0); HEMOGLOBIN 10.7 g/dl (14.0-17.9); LYMPHOCYTES # (AUTO) 2.2 X10'3 (1.1-4.8); LYMPHOCYTES % (AUTO) 33.1 % (21-51); MEAN CORPUSCULAR HEMOGLOBIN 30.3 PG (27.0-31.0); MEAN CORPUSCULAR HGB CONC 33.3 g/dL (33.0-36.5); MEAN CORPUSCULAR VOLUME 91.1 FL (78-98); MEAN PLATELET VOLUME 8.1 FL (7.4-10.4); MONOCYTES # (AUTO) 0.4 X10'3 (0-0.9); MONOCYTES % (AUTO) 6.1 % (2-12); NEUTROPHILS # (AUTO) 3.7 X10'3 (1.8-7.7); NEUTROPHILS % (AUTO) 55.8 % (42-75); PLATELET COUNT 237 X10'3 (140-440); RED BLOOD COUNT 3.54 X10'6 (4.70-6.10); RED CELL DISTRIBUTION WIDTH 14.3 % (11.5-14.5); WHITE BLOOD COUNT 6.6 X10'3 (4.5-11.0)
[2023-08-08 06:00] VITALS: BP 110/81; PULSE 79; RESP 16; TEMP 97.8; O2SAT 97
--- NOTE | 2023-08-08 06:09 | NUR ---
Problems reprioritized. Patient report given, questions answered & plan of care reviewed with
--- NOTE | 2023-08-08 06:15 | NUR ---
received report from tiffany quinonez
[2023-08-08 06:21] LABS: ALANINE AMINOTRANSFERASE 19 U/L (12-78); ALKALINE PHOSPHATASE 80 IU/L (46-116); ANION GAP 8 (8-16); ASPARTATE AMINO TRANSFERASE 17 U/L (10-37); BILIRUBIN,TOTAL 0.3 MG/DL (0.1-1.0); BLOOD UREA NITROGEN 2 MG/DL (7-18); CALCIUM 8.7 MG/DL (8.5-10.1); CHLORIDE 104 MMOL/L (99-107); CREATININE 0.67 MG/DL (0.60-1.10); GLUCOSE 93 MG/DL (70-104); POTASSIUM 3.6 MMOL/L (3.5-5.1); SODIUM 138 MMOL/L (135-145); TOTAL CARBON DIOXIDE 26.5 MMOL/L (24-32); TOTAL PROTEIN 5.9 G/DL (6.4-8.2); eCRCL 155 ML/MIN; eGFR > 90 ML/MIN
[2023-08-08] MEDS: docusate sod 100mg capsule PO SCH ×2 (07:10→19:28)
[2023-08-08] MEDS: pantoprazole 40MG/NS 100ML BAG 100 ML IV SCH ×2 (07:10→19:27)
[2023-08-08] MEDS: thiamine 100mg/ml 2ml inj. IV SCH ×3 (07:12→19:32)
[2023-08-08] MEDS: folic acid 1mg/0.2ml inj IV SCH (07:14)
[2023-08-08] MEDS: heparin, porcine 5000 units/ml vial SQ SCH ×2 (07:15→19:29)
[2023-08-08] MEDS: normal saline 1000ml 1,000 ML IV SCH ×3 (09:14→23:58)
[2023-08-08 10:00] VITALS: BP 119/75; PULSE 89; RESP 14; TEMP 98.4; O2SAT 97
--- NOTE | 2023-08-08 13:43 | NUR ---
changed out dilaudid cadd bag with charge nurse and wasted 17 ml, there was not a waste documentation in the emar for me and the charge to co-sign
--- NOTE | 2023-08-08 15:31 | NUR ---
sent page to about patient wanting to go ama due to a future court date, despite education on staying to receive more antibiotics for his finger pt said 'My court date is in a few days and i need to get my head straight to prepare for it' md had not called back patient refused to sign his ama paperwork Addendum: 08/08/23 at 1544 by Gilda Birch RN above narrative does not apply to this patient
--- NOTE | 2023-08-08 17:30 | NUR ---
Malnutrition consult: Per first RN malnutrition screen pt is unsure of wt loss though reports 2-13 pounds wt loss and a decreased in PO intake/appetite. Per second RN malnutrition screen pt reports no wt loss and denies poor intake/appetite. Pt H&P pt appears well developed well nourished. Scaled wt this admit of 75.7kg (167 pounds), prior wt in EMR of 75kg, and 74kg on 07/08 suggesting wt appears stable confirming pt's reporting in EMR. Pt does not present with edema nor reduced muscle strength per EMR. Pt lacks a minimum of two malnutrition criteria at this time. Addendum: 08/08/23 at [address] Amended: Links added.
[2023-08-08 18:00] VITALS: BP 119/81; PULSE 73; RESP 16; TEMP 98.7; O2SAT 98
--- NOTE | 2023-08-08 18:19 | NUR ---
gave report to tiffany doss
[2023-08-09] MEDS: LORazepam 2 mg/ml vial IV PRN ×4 (00:01→13:34)
[2023-08-09 00:13] VITALS: BP 148/99; PULSE 76; RESP 16; TEMP 97.1; O2SAT 100
[2023-08-09] MEDS: HYDROmorph/NS 0.2 mg/ml PCA 100 ML IV SCH ×6 (01:00→11:00)
[2023-08-09] MEDS: normal saline 1000ml 1,000 ML IV SCH ×3 (02:50→18:47)
[2023-08-09] MEDS ORDERED: LORazepam 2 mg/ml vial IV PRN (02:50)
[2023-08-09] MEDS ORDERED: LORazepam 1 MG tablet PO PRN (02:50)
[2023-08-09 06:00] VITALS: BP 131/94; PULSE 69; RESP 16; TEMP 97.6; O2SAT 99
--- NOTE | 2023-08-09 06:52 | NUR ---
Report given to Katie HAYS, pt resting comfortably at this time. No significant changes through the night.
[2023-08-09 07:32] LABS: BASOPHILS % (AUTO) 0.4 % (0-1); EOSINOPHILS # (AUTO) 0.3 X10'3 (0-0.9); EOSINOPHILS % (AUTO) 4.4 % (0-6); HEMATOCRIT 33.9 % (42.0-52.0); HEMOGLOBIN 11.5 g/dl (14.0-17.9); LYMPHOCYTES % (AUTO) 31.5 % (21-51); MEAN CORPUSCULAR HEMOGLOBIN 30.4 PG (27.0-31.0); MEAN CORPUSCULAR HGB CONC 33.8 g/dL (33.0-36.5); MEAN CORPUSCULAR VOLUME 90.1 FL (78-98); MEAN PLATELET VOLUME 7.6 FL (7.4-10.4); MONOCYTES # (AUTO) 0.4 X10'3 (0-0.9); NEUTROPHILS # (AUTO) 3.6 X10'3 (1.8-7.7); NEUTROPHILS % (AUTO) 56.7 % (42-75); PLATELET COUNT 280 X10'3 (140-440); RED BLOOD COUNT 3.76 X10'6 (4.70-6.10); RED CELL DISTRIBUTION WIDTH 14.3 % (11.5-14.5); WHITE BLOOD COUNT 6.3 X10'3 (4.5-11.0)
[2023-08-09 08:06] LABS: ALANINE AMINOTRANSFERASE 21 U/L (12-78); ALBUMIN 3.4 G/DL (3.4-5.0); ALBUMIN/GLOBULIN RATIO 1.1 (1.1-1.5); ALKALINE PHOSPHATASE 88 IU/L (46-116); ANION GAP 5 (8-16); ASPARTATE AMINO TRANSFERASE 15 U/L (10-37); BILIRUBIN,TOTAL 0.4 MG/DL (0.1-1.0); BLOOD UREA NITROGEN 4 MG/DL (7-18); BUN/CREATININE RATIO 5.3 (10.0-20.0); CALCIUM 9.1 MG/DL (8.5-10.1); CHLORIDE 102 MMOL/L (99-107); CREATININE 0.76 MG/DL (0.60-1.10); GLUCOSE 85 MG/DL (70-104); LIPASE 23 U/L (16-77); POTASSIUM 4.2 MMOL/L (3.5-5.1); SODIUM 138 MMOL/L (135-145); TOTAL CARBON DIOXIDE 31.1 MMOL/L (24-32); TOTAL PROTEIN 6.5 G/DL (6.4-8.2); eCRCL 137 ML/MIN; eGFR > 90 ML/MIN
[2023-08-09] MEDS: thiamine 100mg/ml 2ml inj. IV SCH ×2 (08:30→16:17)
[2023-08-09] MEDS: docusate sod 100mg capsule PO SCH ×2 (08:31→20:55)
[2023-08-09] MEDS: heparin, porcine 5000 units/ml vial SQ SCH ×2 (08:31→20:55)
[2023-08-09] MEDS: pantoprazole 40MG/NS 100ML BAG 100 ML IV SCH ×2 (08:49→20:54)
[2023-08-09] MEDS: folic acid 1mg/0.2ml inj IV SCH (08:49)
[2023-08-09 09:00] VITALS: RESP 16
[2023-08-09 10:15] VITALS: BP 132/84; PULSE 78; RESP 15; TEMP 97.9; O2SAT 100
--- NOTE | 2023-08-09 10:54 | NUR ---
Received order for consult. Met with patient for substance use and to see if patient was interested in resources for treatment options. Patient declined resources.
--- NOTE | 2023-08-09 13:25 | NUR ---
PAGER ID: [phone] MESSAGE: Katie Valdes [phone] please call re: Thiamine can we change to PO IV hurts patient
[2023-08-09] MEDS ORDERED: PCA WASTE DOCUMENTATION 1 MG ML MC SCH (14:45)
--- NOTE | 2023-08-09 14:56 | NUR ---
PAGER ID: [phone] MESSAGE: Katie Valdes [phone] Re: Christine Please call Re: Alexys and Brandon
[2023-08-09] MEDS: HYDROmorphone inj. 0.5 MG/0.5 ML DISP.SYRIN IV PRN (16:09)
--- NOTE | 2023-08-09 18:26 | NUR ---
PAGER ID: [phone] MESSAGE: Katie Valdes [phone] Re: Christine [id number] please call re: pain medication Addendum: 08/09/23 at 1835 by Katie Beal RN Received orders for Percocet 5/325 Q4h prn PO pain, Ok to change Ativan to 1 mg PO Q4h prn , Ok to change Thiamine to PO dosing, Spoke to flor the pharmacist who states change the Thiamine to 100 mg po Daily per protocol
[2023-08-09] MEDS: LORazepam 1 MG tablet PO PRN ×2 (18:46→23:52)
[2023-08-09 19:00] VITALS: BP 145/104; PULSE 63; RESP 14; TEMP 97.7; O2SAT 99
--- NOTE | 2023-08-09 19:26 | NUR ---
Problems reprioritized. Patient report given, questions answered & plan of care reviewed with Patricia HAYS.
[2023-08-09] MEDS: oxyCODONE/APAP 5-325mg tablet PO PRN (20:58)
[2023-08-09 22:00] VITALS: BP 148/105; PULSE 69; RESP 18; TEMP 98.7; O2SAT 98
[2023-08-09] MEDS: HYDROmorphone 1 mg/ml syringe IV PRN (22:09)
[2023-08-10] MEDS: LORazepam 1 MG tablet PO PRN ×4 (04:14→21:55)
[2023-08-10] MEDS: oxyCODONE/APAP 5-325mg tablet PO PRN ×2 (04:15→10:22)
[2023-08-10] MEDS: normal saline 1000ml 1,000 ML IV SCH ×2 (04:23→17:32)
[2023-08-10 06:00] VITALS: BP 127/87; PULSE 71; RESP 18; TEMP 98.1; O2SAT 97
--- NOTE | 2023-08-10 06:30 | NUR ---
Report to Katie HAYS
[2023-08-10 07:00] LABS: BASOPHILS % (AUTO) 0.5 % (0-1); EOSINOPHILS # (AUTO) 0.2 X10'3 (0-0.9); EOSINOPHILS % (AUTO) 3.5 % (0-6); HEMATOCRIT 34.4 % (42.0-52.0); HEMOGLOBIN 11.9 g/dl (14.0-17.9); LYMPHOCYTES # (AUTO) 1.5 X10'3 (1.1-4.8); LYMPHOCYTES % (AUTO) 25.8 % (21-51); MEAN CORPUSCULAR HEMOGLOBIN 30.7 PG (27.0-31.0); MEAN CORPUSCULAR HGB CONC 34.5 g/dL (33.0-36.5); MEAN PLATELET VOLUME 7.7 FL (7.4-10.4); MONOCYTES # (AUTO) 0.4 X10'3 (0-0.9); MONOCYTES % (AUTO) 7.5 % (2-12); NEUTROPHILS # (AUTO) 3.8 X10'3 (1.8-7.7); NEUTROPHILS % (AUTO) 62.7 % (42-75); PLATELET COUNT 300 X10'3 (140-440); RED BLOOD COUNT 3.86 X10'6 (4.70-6.10); RED CELL DISTRIBUTION WIDTH 13.8 % (11.5-14.5)
[2023-08-10 07:08] LABS: ALANINE AMINOTRANSFERASE 18 U/L (12-78); ALBUMIN 3.5 G/DL (3.4-5.0); ALBUMIN/GLOBULIN RATIO 1.2 (1.1-1.5); ALKALINE PHOSPHATASE 88 IU/L (46-116); ANION GAP 7 (8-16); ASPARTATE AMINO TRANSFERASE 14 U/L (10-37); BILIRUBIN,TOTAL 0.6 MG/DL (0.1-1.0); BLOOD UREA NITROGEN 4 MG/DL (7-18); BUN/CREATININE RATIO 5.4 (10.0-20.0); CALCIUM 9.3 MG/DL (8.5-10.1); CHLORIDE 104 MMOL/L (99-107); CREATININE 0.74 MG/DL (0.60-1.10); GLUCOSE 91 MG/DL (70-104); LIPASE 22 U/L (16-77); POTASSIUM 3.8 MMOL/L (3.5-5.1); SODIUM 140 MMOL/L (135-145); TOTAL CARBON DIOXIDE 29.4 MMOL/L (24-32); TOTAL PROTEIN 6.5 G/DL (6.4-8.2); eCRCL 141 ML/MIN; eGFR > 90 ML/MIN
[2023-08-10] MEDS: pantoprazole 40MG/NS 100ML BAG 100 ML IV SCH ×2 (07:59→20:25)
[2023-08-10] MEDS: docusate sod 100mg capsule PO SCH ×2 (07:59→20:25)
[2023-08-10 08:00] VITALS: RESP 16
[2023-08-10] MEDS: thiamine 100mg tablet PO SCH ×2 (08:00→20:25)
[2023-08-10] MEDS: heparin, porcine 5000 units/ml vial SQ SCH ×2 (08:00→20:26)
[2023-08-10] MEDS: HYDROmorphone inj. 0.5 MG/0.5 ML DISP.SYRIN IV PRN ×2 (08:01→12:01)
[2023-08-10 10:00] VITALS: BP 135/95; PULSE 74; RESP 16; TEMP 98.7; O2SAT 97
[2023-08-10] MEDS ORDERED: oxyCODONE/APAP 5-325mg tablet PO ONE (13:30)
[2023-08-10 18:00] VITALS: BP_SYST 135; BP_SYST 139; BP_DIAS 86; BP_DIAS 95; PULSE 51; PULSE 74; RESP 16; TEMP 98.7; O2SAT 95; O2SAT 97
--- NOTE | 2023-08-10 18:34 | NUR ---
Problems reprioritized. Patient report given, questions answered & plan of care reviewed with Patricia HAYS.
[2023-08-10] MEDS: oxyCODONE/APAP 10/325mg tablet PO PRN ×2 (19:05→23:29)
[2023-08-10] MEDS: diatr meglu/diatrizoate 30ml oral sol.-(3 dose) bottle PO SCH (21:55)
[2023-08-10 22:00] VITALS: BP 128/83; PULSE 79; RESP 14; TEMP 97.6; O2SAT 99
[2023-08-11] MEDS ORDERED: LORazepam 1 MG tablet PO PRN (02:50)
[2023-08-11] MEDS ORDERED: LORazepam 2 mg/ml vial IV PRN (02:50)
[2023-08-11] MEDS: oxyCODONE/APAP 10/325mg tablet PO PRN ×3 (04:59→13:20)
--- NOTE | 2023-08-11 06:15 | NUR ---
Report given to Manuela HAYS.
--- NOTE | 2023-08-11 06:55 | NUR ---
Patient in room ORTHO 4021. I have received report from SAÚL Gomez and had the opportunity to ask questions and assume patient care.
[2023-08-11] MEDS ORDERED: folic acid 1mg tablet PO SCH (08:00)
[2023-08-11] MEDS: heparin, porcine 5000 units/ml vial SQ SCH (08:16)
[2023-08-11] MEDS: docusate sod 100mg capsule PO SCH (08:16)
[2023-08-11] MEDS: LORazepam 1 MG tablet PO PRN ×2 (08:16→13:15)
[2023-08-11] MEDS: thiamine 100mg tablet PO SCH (08:16)
[2023-08-11] MEDS: diatr meglu/diatrizoate 30ml oral sol.-(3 dose) bottle PO SCH ×2 (08:17→11:06)
[2023-08-11] MEDS: pantoprazole 40MG/NS 100ML BAG 100 ML IV SCH (08:30)
[2023-08-11 08:37] VITALS: RESP 14; O2SAT 98
[2023-08-11 09:46] LABS: BASOPHILS % (AUTO) 0.3 % (0-1); EOSINOPHILS # (AUTO) 0.2 X10'3 (0-0.9); EOSINOPHILS % (AUTO) 2.9 % (0-6); HEMATOCRIT 33.2 % (42.0-52.0); HEMOGLOBIN 11.4 g/dl (14.0-17.9); LYMPHOCYTES # (AUTO) 1.6 X10'3 (1.1-4.8); MEAN CORPUSCULAR HEMOGLOBIN 30.9 PG (27.0-31.0); MEAN CORPUSCULAR HGB CONC 34.4 g/dL (33.0-36.5); MEAN PLATELET VOLUME 8.4 FL (7.4-10.4); MONOCYTES # (AUTO) 0.5 X10'3 (0-0.9); MONOCYTES % (AUTO) 7.3 % (2-12); NEUTROPHILS # (AUTO) 3.9 X10'3 (1.8-7.7); NEUTROPHILS % (AUTO) 63.5 % (42-75); PLATELET COUNT 278 X10'3 (140-440); RED BLOOD COUNT 3.69 X10'6 (4.70-6.10); RED CELL DISTRIBUTION WIDTH 14.3 % (11.5-14.5); WHITE BLOOD COUNT 6.2 X10'3 (4.5-11.0)
[2023-08-11 09:49] LABS: ALANINE AMINOTRANSFERASE 13 U/L (12-78); ALBUMIN 3.3 G/DL (3.4-5.0); ALKALINE PHOSPHATASE 75 IU/L (46-116); ANION GAP 8 (8-16); ASPARTATE AMINO TRANSFERASE 13 U/L (10-37); BILIRUBIN,TOTAL 0.5 MG/DL (0.1-1.0); BLOOD UREA NITROGEN 4 MG/DL (7-18); BUN/CREATININE RATIO 5.3 (10.0-20.0); CALCIUM 9.1 MG/DL (8.5-10.1); CHLORIDE 107 MMOL/L (99-107); CREATININE 0.76 MG/DL (0.60-1.10); GLUCOSE 90 MG/DL (70-104); LIPASE 22 U/L (16-77); POTASSIUM 3.7 MMOL/L (3.5-5.1); SODIUM 140 MMOL/L (135-145); TOTAL CARBON DIOXIDE 25.3 MMOL/L (24-32); TOTAL PROTEIN 6.5 G/DL (6.4-8.2); eCRCL 137 ML/MIN; eGFR > 90 ML/MIN
[2023-08-11 10:00] VITALS: RESP 16
[2023-08-11] MEDS ORDERED: iohexol 300mg/ml 100ml inj. ONE (11:08)
[2023-08-11] MEDS ORDERED: ONDA4TAB12 PO (15:34)
[2023-08-11] MEDS ORDERED: OXYC1TAB17 PO (15:34)
--- NOTE | 2023-08-11 19:15 | NUR ---
pt was given discharge packet and able to ask questions about discharge. pt left in wheelchair with all of his belongings in stable condition. Patient left in private vehicle with his father.
[2023-08-11] MEDS ORDERED: pantoprazole 40mg Tablet.DR PO SCH (20:00)
== END 2023-08-11 16:10 | disposition home or self-care (01) | DRG 439 ==
LOC: ER 22:53 → ED HOLD 08-07 02:54 → ORTHO 4S 08-07 17:28
PROVIDERS: ADMIT Family Medicine; ATTEND Internal Medicine
PROC: BW211ZZ Computerized Tomography (CT Scan) of Abdomen and Pelvis using Low Osmolar Contrast (ICD-10-PCS; principal; 2023-08-06)
PROC: BW211ZZ Computerized Tomography (CT Scan) of Abdomen and Pelvis using Low Osmolar Contrast (ICD-10-PCS; 2023-08-11)
DX: K85.90 Acute pancreatitis without necrosis or infection, unspecified (principal); K56.7 Ileus, unspecified; G89.29 Other chronic pain; K86.1 Other chronic pancreatitis; F10.90 Alcohol use, unspecified, uncomplicated; K57.90 Diverticulosis of intestine, part unspecified, without perforation or abscess without bleeding; Z87.891 Personal history of nicotine dependence; Z82.49 Family history of ischemic heart disease and other diseases of the circulatory system
CPT/HCPCS: 36415; 71045; 74177; 74178; 76700; 80053; 80061; 80305; 80320; 81003; 82150; 82550; 83690; 83735; 83880; 84100; 84443; 85025; 85610; 85730; 86038; 99285; C9113; G0378; J1170; J1644; J2060; J2270; J2274; J3411; J3490; J7030; Q9963; Q9967

== ENCOUNTER 2023-08-30 00:49 | Inpatient (IN) | payer BC ==
[~2023-08-30] VITALS: Ht 177.8 cm; Wt 78.0 kg
[~2023-08-30 00:49] MED LIST changes: -FOLI0.8T3 PO; -LIPA1CAP28 PO; +ONDA4TAB12 PO; +OXYC1TAB17 PO; -PANT40TA54 PO
[2023-08-30] MEDS ORDERED: morphine 4 MG/ML inj SYRINge IV ONE ×2 (01:15→09:45)
[2023-08-30] MEDS ORDERED: ondansetron/PF 4mg/2ml inj IV ONE ×2 (01:15→09:45)
[2023-08-30 01:21] LABS: BASOPHILS # (AUTO) 0.1 X10'3 (0-0.2); BASOPHILS % (AUTO) 0.3 % (0-1); EOSINOPHILS # (AUTO) 0.1 X10'3 (0-0.9); EOSINOPHILS % (AUTO) 0.4 % (0-6); HEMATOCRIT 44.4 % (42.0-52.0); HEMOGLOBIN 14.8 g/dl (14.0-17.9); LYMPHOCYTES # (AUTO) 2.1 X10'3 (1.1-4.8); LYMPHOCYTES % (AUTO) 9.9 % (21-51); MEAN CORPUSCULAR HEMOGLOBIN 30.4 PG (27.0-31.0); MEAN CORPUSCULAR HGB CONC 33.4 g/dL (33.0-36.5); MEAN CORPUSCULAR VOLUME 90.9 FL (78-98); MEAN PLATELET VOLUME 7.9 FL (7.4-10.4); MONOCYTES # (AUTO) 0.9 X10'3 (0-0.9); MONOCYTES % (AUTO) 4.3 % (2-12); NEUTROPHILS # (AUTO) 18.4 X10'3 (1.8-7.7); NEUTROPHILS % (AUTO) 85.1 % (42-75); PLATELET COUNT 371 X10'3 (140-440); RED BLOOD COUNT 4.89 X10'6 (4.70-6.10); WHITE BLOOD COUNT 21.6 X10'3 (4.5-11.0)
[2023-08-30 01:23] LABS: BILIRUBIN,URINE NEGATIVE (Neg); CLARITY,URINE CLEAR (Clear); COLOR,URINE YELLOW (Yellow); GLUCOSE, URINE NEGATIVE (Neg); KETONES,URINE NEGATIVE (Neg); LEUKOCYTE ESTERASE ,URINE NEGATIVE (Neg); NITRITES, URINE NEGATIVE (Neg); OCCULT BLOOD,URINE NEGATIVE (Neg); PROTEIN,URINE NEGATIVE (Neg); UROBILINOGEN,URINE 0.2 E.U/dL (0.2-1.0)
[2023-08-30 01:31] LABS: UA COLLECTION TYPE CLN CATCH MIDSTREAM
[2023-08-30] MEDS ORDERED: LORazepam 2 mg/ml vial IV ONE (01:55)
[2023-08-30] MEDS ORDERED: meperidine/PF 50mg/ml syringe IV ONE (01:55)
[2023-08-30] MEDS ORDERED: MIDAZolam 5mg/ml 2ml vial IV ONE (01:55)
[2023-08-30] MEDS ORDERED: normal saline 1000ml 1,000 ML IV ONE ×5 (02:00→10:00)
[2023-08-30 02:33] LABS: ALANINE AMINOTRANSFERASE 26 U/L (12-78); ALBUMIN 4.6 G/DL (3.4-5.0); ALBUMIN/GLOBULIN RATIO 1.1 (1.1-1.5); ALKALINE PHOSPHATASE 123 IU/L (46-116); ANION GAP 14 (8-16); ASPARTATE AMINO TRANSFERASE 19 U/L (10-37); BILIRUBIN,TOTAL 0.7 MG/DL (0.1-1.0); BLOOD UREA NITROGEN 7 MG/DL (7-18); BUN/CREATININE RATIO 8.1 (10.0-20.0); CALCIUM 9.7 MG/DL (8.5-10.1); CHLORIDE 102 MMOL/L (99-107); CREATININE 0.86 MG/DL (0.60-1.10); GLUCOSE 160 MG/DL (70-104); LIPASE 25 U/L (16-77); POTASSIUM 3.9 MMOL/L (3.5-5.1); SODIUM 140 MMOL/L (135-145); TOTAL PROTEIN 8.7 G/DL (6.4-8.2); eCRCL 125 ML/MIN; eGFR > 90 ML/MIN
[2023-08-30] MEDS ORDERED: HYDROmorphone 1 mg/ml syringe IV ONE ×2 (04:30→05:55)
[2023-08-30] MEDS ORDERED: iohexol 300mg/ml 100ml inj. ONE (04:36)
[2023-08-30] MEDS ORDERED: iohexol 350MG/ML 100ml bottle IV ONE (05:56)
[2023-08-30] MEDS ORDERED: potassium Cl 20 mEq SR tablet PO PRN ×2 (10:05)
[2023-08-30] MEDS ORDERED: magnesium Cl slow-release 64mg tablet PO PRN (10:05)
[2023-08-30] MEDS ORDERED: HYDROmorphone inj. 0.5 MG/0.5 ML DISP.SYRIN IV PRN ×3 (10:05→14:00)
[2023-08-30] MEDS ORDERED: HYDROmorphone/PF 0.2 MG/ML SYRINGE IV PRN (10:05)
[2023-08-30] MEDS ORDERED: magnesium 4gm in 100ml NS 100 ML IV PRN (10:05)
[2023-08-30] MEDS ORDERED: potassium Cl 40MEQ/1/2NS 520ml 520 ML IV PRN (10:05)
[2023-08-30] MEDS ORDERED: ondansetron/PF 4mg/2ml inj IV PRN (10:05)
[2023-08-30] MEDS ORDERED: acetaminophen 325mg tablet PO PRN (10:05)
[2023-08-30] MEDS ORDERED: mag hydrox/Alum hydrox/simeth 30ml oral suspension PO PRN (10:05)
[2023-08-30] MEDS ORDERED: dextrose 5%-1/2 normal saline 1,000 ML IV SCH (10:05)
[2023-08-30] MEDS ORDERED: magnesium hydroxide 30ml (MOM) UD suspension PO PRN (10:05)
[2023-08-30] MEDS ORDERED: magnesium 2GM in 50ml NS 50 ML IV PRN (10:05)
[2023-08-30 10:19] LABS: MAGNESIUM 1.9 MG/DL (1.5-2.4)
[2023-08-30 11:18] LABS: URINE AMPHETAMINE SCREEN NEGATIVE (Neg); URINE BARBITUATE SCREEN NEGATIVE (Neg); URINE BENZODIAZEPINES SCREEN NEGATIVE (Neg); URINE CANNABINOID SCREEN NEGATIVE (Neg); URINE COCAINE SCREEN NEGATIVE (Neg); URINE METHADONE SCREEN NEGATIVE (Neg); URINE OPIATE SCREEN NEGATIVE (Neg); URINE PHENCYCLIDINE SCREEN NEGATIVE (Neg)
[2023-08-30] MEDS ORDERED: LORazepam 2 mg/ml vial IV PRN (12:40)
[2023-08-30 14:12] VITALS: BP 138/95; PULSE 98; RESP 18; O2SAT 97
[2023-08-30] MEDS ORDERED: piperacillin/tazo 3.375gm/50ml 50 ML IV SCH (16:00)
[2023-08-30] MEDS ORDERED: K and/or MAG REPLACEMENT MC SCH (20:00)
[2023-08-30] MEDS ORDERED: docusate sod 100mg capsule PO SCH (20:00)
[2023-08-31] MEDS ORDERED: enoxaparin 40mg/0.4ml syringe SUBCUT SCH (08:00)
== END 2023-08-30 12:20 | disposition left against medical advice (07) | DRG 388 ==
LOC: ER 00:49 → ED HOLD 10:08
PROVIDERS: ADMIT Internal Medicine; ATTEND Internal Medicine
PROC: BW211ZZ Computerized Tomography (CT Scan) of Abdomen and Pelvis using Low Osmolar Contrast (ICD-10-PCS; principal; 2023-08-30)
PROC: B4201ZZ Computerized Tomography (CT Scan) of Abdominal Aorta using Low Osmolar Contrast (ICD-10-PCS; 2023-08-30)
PROC: B4241ZZ Computerized Tomography (CT Scan) of Superior Mesenteric Artery using Low Osmolar Contrast (ICD-10-PCS; 2023-08-30)
PROC: B4281ZZ Computerized Tomography (CT Scan) of Bilateral Renal Arteries using Low Osmolar Contrast (ICD-10-PCS; 2023-08-30)
PROC: B42C1ZZ Computerized Tomography (CT Scan) of Pelvic Arteries using Low Osmolar Contrast (ICD-10-PCS; 2023-08-30)
PROC: B42H1ZZ Computerized Tomography (CT Scan) of Bilateral Lower Extremity Arteries using Low Osmolar Contrast (ICD-10-PCS; 2023-08-30)
PROC: B4211ZZ Computerized Tomography (CT Scan) of Celiac Artery using Low Osmolar Contrast (ICD-10-PCS; 2023-08-30)
DX: K56.7 Ileus, unspecified (principal); K85.90 Acute pancreatitis without necrosis or infection, unspecified; F41.9 Anxiety disorder, unspecified; Z53.29 Procedure and treatment not carried out because of patient's decision for other reasons; Z82.49 Family history of ischemic heart disease and other diseases of the circulatory system; Z76.5 Malingerer [conscious simulation]
CPT/HCPCS: 36415; 74018; 74174; 74177; 80053; 80305; 81003; 82948; 83605; 83690; 83735; 84484; 85025; 99285; G0378; J1170; J2060; J2175; J2270; J2405; J3490; J7030; Q9967

== ENCOUNTER 2023-08-31 23:09 | Emergency (ER) | payer BC ==
[~2023-08-31] VITALS: Ht 175.3 cm; Wt 79.0 kg
[2023-09-01 00:03] LABS: EOSINOPHILS # (AUTO) 0.1 X10'3 (0-0.9); MEAN PLATELET VOLUME 7.9 FL (7.4-10.4); MONOCYTES # (AUTO) 0.5 X10'3 (0-0.9); RED CELL DISTRIBUTION WIDTH 13.8 % (11.5-14.5)
[2023-09-01 00:03] LABS: BILIRUBIN,URINE NEGATIVE (Neg); CLARITY,URINE SLIGHTLY CLOUDY (Clear); COLOR,URINE YELLOW (Yellow); GLUCOSE, URINE NEGATIVE (Neg); KETONES,URINE NEGATIVE (Neg); LEUKOCYTE ESTERASE ,URINE NEGATIVE (Neg); NITRITES, URINE NEGATIVE (Neg); OCCULT BLOOD,URINE NEGATIVE (Neg); PH,URINE 6.5 (4.8-8.0); PROTEIN,URINE NEGATIVE (Neg); UROBILINOGEN,URINE 0.2 E.U/dL (0.2-1.0)
[2023-09-01 00:04] LABS: BASOPHILS # (AUTO) 0.1 X10'3 (0-0.2); BASOPHILS % (AUTO) 0.6 % (0-1); EOSINOPHILS % (AUTO) 0.9 % (0-6); HEMATOCRIT 39.1 % (42.0-52.0); HEMOGLOBIN 13.2 g/dl (14.0-17.9); LYMPHOCYTES # (AUTO) 1.8 X10'3 (1.1-4.8); LYMPHOCYTES % (AUTO) 16.1 % (21-51); MEAN CORPUSCULAR HEMOGLOBIN 30.6 PG (27.0-31.0); MEAN CORPUSCULAR HGB CONC 33.8 g/dL (33.0-36.5); MEAN CORPUSCULAR VOLUME 90.6 FL (78-98); MONOCYTES % (AUTO) 4.7 % (2-12); NEUTROPHILS # (AUTO) 8.5 X10'3 (1.8-7.7); NEUTROPHILS % (AUTO) 77.7 % (42-75); PLATELET COUNT 270 X10'3 (140-440); RED BLOOD COUNT 4.31 X10'6 (4.70-6.10); WHITE BLOOD COUNT 10.9 X10'3 (4.5-11.0)
[2023-09-01 00:08] LABS: UA COLLECTION TYPE CLN CATCH MIDSTREAM
[2023-09-01 00:14] LABS: AMORPHOUS PHOSPHATES 1+; BACTERIA,URINE NONE SEEN /HPF (Neg); RBC,URINE 0-2 /HPF (0-2); SQUAMOUS EPITHELIAL CELL,UR FEW /LPF (FEW); WBC,URINE 0-4 /HPF (0-4)
[2023-09-01 00:16] LABS: ALANINE AMINOTRANSFERASE 24 U/L (12-78); ALBUMIN 4.1 G/DL (3.4-5.0); ALBUMIN/GLOBULIN RATIO 1.1 (1.1-1.5); ALKALINE PHOSPHATASE 119 IU/L (46-116); ANION GAP 10 (8-16); ASPARTATE AMINO TRANSFERASE 15 U/L (10-37); BILIRUBIN,TOTAL 0.5 MG/DL (0.1-1.0); BLOOD UREA NITROGEN 5 MG/DL (7-18); BUN/CREATININE RATIO 6.9 (10.0-20.0); CALCIUM 9.2 MG/DL (8.5-10.1); CHLORIDE 102 MMOL/L (99-107); CREATININE 0.72 MG/DL (0.60-1.10); GLUCOSE 133 MG/DL (70-104); LIPASE 22 U/L (16-77); POTASSIUM 3.4 MMOL/L (3.5-5.1); SODIUM 137 MMOL/L (135-145); TOTAL PROTEIN 7.9 G/DL (6.4-8.2); eCRCL 145 ML/MIN; eGFR > 90 ML/MIN
[2023-09-01] MEDS: ondansetron/PF 4mg/2ml inj IV ONE (07:44)
[2023-09-01] MEDS: HYDROmorphone 1 mg/ml syringe IV ONE ×2 (07:44→09:49)
[2023-09-01] MEDS ORDERED: LIDOcaine 2% 10ml TOPICAL JELLY (Urojet) MM ONE (07:55)
[2023-09-01] MEDS: metoclopramide 5 mg/ml inj IV ONE (08:43)
[2023-09-01 08:47] VITALS: TEMP 97.7
[2023-09-01] MEDS: LidoCAINE 2% Topical Jelly 11mL syringe MM ONE (09:00)
[2023-09-01] MEDS ORDERED: HYDR-3965 PO (12:15)
[2023-09-01] MEDS ORDERED: OMEP20CA16 PO (12:15)
[2023-09-01 12:32] VITALS: BP 141/97; PULSE 80; RESP 18; O2SAT 96
== END 2023-09-01 12:34 | disposition home or self-care (01) ==
LOC: ER 23:10
DX: K29.00 Acute gastritis without bleeding (principal); R10.9 Unspecified abdominal pain; Z72.89 Other problems related to lifestyle; Z79.899 Other long term (current) drug therapy; Z93.1 Gastrostomy status
CPT/HCPCS: 36415; 71045; 80053; 81001; 83690; 85025; 96374; 96375; 96376; 99285; J1170; J2405; J2765; 81003

== ENCOUNTER 2023-09-03 05:02 | Emergency (ER) | payer BC ==
[~2023-09-03] VITALS: Ht 177.8 cm; Wt 79.6 kg
[~2023-09-03 05:02] MED LIST changes: +HYDR-3965 PO; +OMEP20CA16 PO
[2023-09-03 06:18] LABS: BILIRUBIN,URINE NEGATIVE (Neg); CLARITY,URINE CLEAR (Clear); COLOR,URINE YELLOW (Yellow); GLUCOSE, URINE NEGATIVE (Neg); KETONES,URINE NEGATIVE (Neg); LEUKOCYTE ESTERASE ,URINE NEGATIVE (Neg); NITRITES, URINE NEGATIVE (Neg); OCCULT BLOOD,URINE NEGATIVE (Neg); PROTEIN,URINE NEGATIVE (Neg); UROBILINOGEN,URINE 0.2 E.U/dL (0.2-1.0)
[2023-09-03 06:26] LABS: UA COLLECTION TYPE CLN CATCH MIDSTREAM
[2023-09-03 06:30] LABS: BASOPHILS % (AUTO) 0.4 % (0-1); EOSINOPHILS # (AUTO) 0.2 X10'3 (0-0.9); EOSINOPHILS % (AUTO) 2.3 % (0-6); HEMATOCRIT 37.2 % (42.0-52.0); HEMOGLOBIN 12.6 g/dl (14.0-17.9); LYMPHOCYTES # (AUTO) 2.2 X10'3 (1.1-4.8); LYMPHOCYTES % (AUTO) 21.1 % (21-51); MEAN CORPUSCULAR HEMOGLOBIN 30.6 PG (27.0-31.0); MEAN CORPUSCULAR HGB CONC 33.8 g/dL (33.0-36.5); MEAN CORPUSCULAR VOLUME 90.6 FL (78-98); MEAN PLATELET VOLUME 8.2 FL (7.4-10.4); MONOCYTES # (AUTO) 0.9 X10'3 (0-0.9); MONOCYTES % (AUTO) 9.2 % (2-12); NEUTROPHILS # (AUTO) 6.9 X10'3 (1.8-7.7); PLATELET COUNT 251 X10'3 (140-440); RED BLOOD COUNT 4.11 X10'6 (4.70-6.10); RED CELL DISTRIBUTION WIDTH 13.4 % (11.5-14.5); WHITE BLOOD COUNT 10.3 X10'3 (4.5-11.0)
[2023-09-03 08:06] LABS: ALANINE AMINOTRANSFERASE 17 U/L (12-78); ALBUMIN 3.5 G/DL (3.4-5.0); ALBUMIN/GLOBULIN RATIO 0.9 (1.1-1.5); ALKALINE PHOSPHATASE 136 IU/L (46-116); ANION GAP 8 (8-16); ASPARTATE AMINO TRANSFERASE 12 U/L (10-37); BILIRUBIN,TOTAL 0.3 MG/DL (0.1-1.0); BLOOD UREA NITROGEN 8 MG/DL (7-18); BUN/CREATININE RATIO 10.5 (10.0-20.0); CALCIUM 8.7 MG/DL (8.5-10.1); CHLORIDE 105 MMOL/L (99-107); CREATININE 0.76 MG/DL (0.60-1.10); GLUCOSE 95 MG/DL (70-104); LIPASE 23 U/L (16-77); POTASSIUM 3.7 MMOL/L (3.5-5.1); SODIUM 141 MMOL/L (135-145); TOTAL CARBON DIOXIDE 28.5 MMOL/L (24-32); TOTAL PROTEIN 7.2 G/DL (6.4-8.2); eCRCL 141 ML/MIN; eGFR > 90 ML/MIN
[2023-09-03] MEDS: HYDROcodone/acetaminophen 10/325mg tab PO ONE (08:20)
[2023-09-03 10:10] VITALS: BP 118/84; PULSE 84; TEMP 97.1; O2SAT 98
[2023-09-03 10:30] VITALS: RESP 16
[2023-09-03] MEDS ORDERED: OXYC-145 PO (11:42)
[2023-09-03] MEDS ORDERED: AMOX-117 PO (11:42)
[2023-10-06] MEDS ORDERED: ONDA8TAB13 PO (04:35)
[2023-10-06] MEDS ORDERED: DICY20TA17 PO (04:36)
== END 2023-09-03 11:55 | disposition home or self-care (01) ==
LOC: ER 05:03
DX: J20.9 Acute bronchitis, unspecified (principal); G89.29 Other chronic pain; Z79.899 Other long term (current) drug therapy
CPT/HCPCS: 36415; 80053; 81003; 83690; 85025; 99283

== ENCOUNTER 2023-09-06 02:46 | Emergency (ER) | payer BC ==
[~2023-09-06] VITALS: Ht 175.3 cm; Wt 78.5 kg
[~2023-09-06 02:46] MED LIST changes: +AMOX-117 PO; +OXYC-145 PO
[2023-09-06 03:29] LABS: BASOPHILS % (AUTO) 0.4 % (0-1); EOSINOPHILS # (AUTO) 0.3 X10'3 (0-0.9); EOSINOPHILS % (AUTO) 3.2 % (0-6); HEMATOCRIT 40.6 % (42.0-52.0); HEMOGLOBIN 13.7 g/dl (14.0-17.9); LYMPHOCYTES # (AUTO) 2.2 X10'3 (1.1-4.8); LYMPHOCYTES % (AUTO) 22.1 % (21-51); MEAN CORPUSCULAR HEMOGLOBIN 30.2 PG (27.0-31.0); MEAN CORPUSCULAR HGB CONC 33.8 g/dL (33.0-36.5); MEAN CORPUSCULAR VOLUME 89.4 FL (78-98); MEAN PLATELET VOLUME 7.8 FL (7.4-10.4); MONOCYTES # (AUTO) 0.9 X10'3 (0-0.9); MONOCYTES % (AUTO) 8.7 % (2-12); NEUTROPHILS # (AUTO) 6.4 X10'3 (1.8-7.7); NEUTROPHILS % (AUTO) 65.6 % (42-75); PLATELET COUNT 315 X10'3 (140-440); RED BLOOD COUNT 4.54 X10'6 (4.70-6.10); RED CELL DISTRIBUTION WIDTH 13.6 % (11.5-14.5); WHITE BLOOD COUNT 9.7 X10'3 (4.5-11.0)
[2023-09-06 03:39] LABS: BILIRUBIN,URINE NEGATIVE (Neg); CLARITY,URINE CLEAR (Clear); COLOR,URINE YELLOW (Yellow); GLUCOSE, URINE NEGATIVE (Neg); KETONES,URINE NEGATIVE (Neg); LEUKOCYTE ESTERASE ,URINE NEGATIVE (Neg); NITRITES, URINE NEGATIVE (Neg); OCCULT BLOOD,URINE NEGATIVE (Neg); PROTEIN,URINE NEGATIVE (Neg); UROBILINOGEN,URINE 0.2 E.U/dL (0.2-1.0)
[2023-09-06 03:41] LABS: ALANINE AMINOTRANSFERASE 24 U/L (12-78); ALBUMIN 3.9 G/DL (3.4-5.0); ALBUMIN/GLOBULIN RATIO 0.9 (1.1-1.5); ALKALINE PHOSPHATASE 128 IU/L (46-116); ANION GAP 9 (8-16); ASPARTATE AMINO TRANSFERASE 15 U/L (10-37); BILIRUBIN,TOTAL 0.4 MG/DL (0.1-1.0); BLOOD UREA NITROGEN 7 MG/DL (7-18); BUN/CREATININE RATIO 8.9 (10.0-20.0); CALCIUM 9.4 MG/DL (8.5-10.1); CHLORIDE 101 MMOL/L (99-107); CREATININE 0.79 MG/DL (0.60-1.10); GLUCOSE 123 MG/DL (70-104); LIPASE 17 U/L (16-77); POTASSIUM 3.8 MMOL/L (3.5-5.1); SODIUM 138 MMOL/L (135-145); TOTAL CARBON DIOXIDE 27.8 MMOL/L (24-32); TOTAL PROTEIN 8.2 G/DL (6.4-8.2); eCRCL 132 ML/MIN; eGFR > 90 ML/MIN
[2023-09-06 03:43] LABS: UA COLLECTION TYPE CLN CATCH MIDSTREAM
[2023-09-06] MEDS ORDERED: HYDROcodone/acetaminophen 5mg/325mg tablet PO ONE (03:55)
[2023-09-06] MEDS ORDERED: TRAM50TA2 PO (03:56)
[2023-09-06 04:09] VITALS: BP 141/95; PULSE 80; RESP 16; TEMP 98.3; O2SAT 97
== END 2023-09-06 04:14 | disposition home or self-care (01) ==
LOC: ER 02:46
DX: R10.84 Generalized abdominal pain (principal); G89.29 Other chronic pain; Z72.89 Other problems related to lifestyle; Z79.2 Long term (current) use of antibiotics; Z79.899 Other long term (current) drug therapy
CPT/HCPCS: 36415; 80053; 81003; 83690; 85025; 99283

== ENCOUNTER 2023-10-02 01:56 | Emergency (ER) | payer BC ==
[~2023-10-02] VITALS: Ht 175.3 cm; Wt 79.4 kg
[~2023-10-02 01:56] MED LIST changes: -AMOX-117 PO; +TRAM50TA2 PO
[2023-10-02 03:05] LABS: BILIRUBIN,URINE NEGATIVE (Neg); CLARITY,URINE CLEAR (Clear); COLOR,URINE YELLOW (Yellow); GLUCOSE, URINE NEGATIVE (Neg); KETONES,URINE NEGATIVE (Neg); LEUKOCYTE ESTERASE ,URINE NEGATIVE (Neg); NITRITES, URINE NEGATIVE (Neg); OCCULT BLOOD,URINE NEGATIVE (Neg); PROTEIN,URINE NEGATIVE (Neg); UROBILINOGEN,URINE 0.2 E.U/dL (0.2-1.0)
[2023-10-02 03:11] LABS: UA COLLECTION TYPE CLN CATCH MIDSTREAM
[2023-10-02 04:37] LABS: BASOPHILS # (AUTO) 0.1 X10'3 (0-0.2); BASOPHILS % (AUTO) 0.8 % (0-1); EOSINOPHILS # (AUTO) 0.3 X10'3 (0-0.9); EOSINOPHILS % (AUTO) 3.1 % (0-6); HEMATOCRIT 46.8 % (42.0-52.0); HEMOGLOBIN 15.7 g/dl (14.0-17.9); LYMPHOCYTES # (AUTO) 3.6 X10'3 (1.1-4.8); LYMPHOCYTES % (AUTO) 36.3 % (21-51); MEAN CORPUSCULAR HEMOGLOBIN 29.9 PG (27.0-31.0); MEAN CORPUSCULAR HGB CONC 33.5 g/dL (33.0-36.5); MEAN CORPUSCULAR VOLUME 89.3 FL (78-98); MEAN PLATELET VOLUME 7.4 FL (7.4-10.4); MONOCYTES # (AUTO) 0.6 X10'3 (0-0.9); MONOCYTES % (AUTO) 6.2 % (2-12); NEUTROPHILS # (AUTO) 5.3 X10'3 (1.8-7.7); NEUTROPHILS % (AUTO) 53.6 % (42-75); PLATELET COUNT 356 X10'3 (140-440); RED BLOOD COUNT 5.24 X10'6 (4.70-6.10); RED CELL DISTRIBUTION WIDTH 13.7 % (11.5-14.5); WHITE BLOOD COUNT 9.9 X10'3 (4.5-11.0)
[2023-10-02 05:15] LABS: ALANINE AMINOTRANSFERASE 22 U/L (12-78); ALBUMIN 4.6 G/DL (3.4-5.0); ALBUMIN/GLOBULIN RATIO 1.1 (1.1-1.5); ALKALINE PHOSPHATASE 151 IU/L (46-116); ANION GAP 9 (8-16); ASPARTATE AMINO TRANSFERASE 26 U/L (10-37); BILIRUBIN,TOTAL 0.2 MG/DL (0.1-1.0); BLOOD UREA NITROGEN 6 MG/DL (7-18); BUN/CREATININE RATIO 7.1 (10.0-20.0); CALCIUM 9.4 MG/DL (8.5-10.1); CHLORIDE 104 MMOL/L (99-107); CREATININE 0.84 MG/DL (0.60-1.10); GLUCOSE 107 MG/DL (70-104); LIPASE 34 U/L (16-77); POTASSIUM 4.5 MMOL/L (3.5-5.1); SODIUM 141 MMOL/L (135-145); TOTAL CARBON DIOXIDE 28.2 MMOL/L (24-32); TOTAL PROTEIN 8.9 G/DL (6.4-8.2); eCRCL 124 ML/MIN; eGFR > 90 ML/MIN
[2023-10-02 07:40] VITALS: TEMP 97.8
[2023-10-02] MEDS ORDERED: morphine 4 MG/ML inj SYRINge IV ONE (10:25)
[2023-10-02] MEDS ORDERED: pantoprazole 40mg IV 80 MG in normal saline 100ml IV soln 100 ML IV ONE (10:25)
[2023-10-02] MEDS ORDERED: diazepam inj 5 MG/ML inj. IV ONE (10:25)
[2023-10-02] MEDS ORDERED: normal saline 1000ML IV soln IVB ONE (10:25)
[2023-10-02] MEDS ORDERED: proCHLORperazine 10 MG/2 ml inj IV ONE (10:25)
[2023-10-02] MEDS ORDERED: pantoprazole 40 MG vial IV ONE (10:30)
[2023-10-02] MEDS ORDERED: ONDA8TAB13 PO (12:21)
[2023-10-02 12:43] VITALS: PULSE 87
[2023-10-02] MEDS ORDERED: HYDR-3965 PO (12:49)
[2023-10-02 13:25] VITALS: BP 125/62; RESP 18; O2SAT 98
== END 2023-10-02 13:14 | disposition home or self-care (01) ==
LOC: ER 01:57
DX: K86.1 Other chronic pancreatitis (principal)
CPT/HCPCS: 36415; 80053; 81003; 83690; 85025; 96361; 96374; 96375; 99285; C9113; J0780; J2270; J3360; J7030

== ENCOUNTER 2023-10-05 03:20 | Emergency (ER) | payer BC ==
[~2023-10-05] VITALS: Ht 177.8 cm; Wt 79.3 kg
[~2023-10-05 03:20] MED LIST changes: +ONDA8TAB13 PO
[2023-10-05 03:53] LABS: BASOPHILS # (AUTO) 0.1 X10'3 (0-0.2); BASOPHILS % (AUTO) 0.6 % (0-1); EOSINOPHILS # (AUTO) 0.1 X10'3 (0-0.9); HEMATOCRIT 46.5 % (42.0-52.0); HEMOGLOBIN 15.4 g/dl (14.0-17.9); LYMPHOCYTES # (AUTO) 3.6 X10'3 (1.1-4.8); LYMPHOCYTES % (AUTO) 29.7 % (21-51); MEAN CORPUSCULAR HEMOGLOBIN 29.6 PG (27.0-31.0); MEAN CORPUSCULAR HGB CONC 33.2 g/dL (33.0-36.5); MEAN CORPUSCULAR VOLUME 89.2 FL (78-98); MEAN PLATELET VOLUME 7.4 FL (7.4-10.4); MONOCYTES # (AUTO) 0.7 X10'3 (0-0.9); MONOCYTES % (AUTO) 5.4 % (2-12); NEUTROPHILS # (AUTO) 7.7 X10'3 (1.8-7.7); NEUTROPHILS % (AUTO) 63.3 % (42-75); PLATELET COUNT 393 X10'3 (140-440); RED BLOOD COUNT 5.22 X10'6 (4.70-6.10); RED CELL DISTRIBUTION WIDTH 13.9 % (11.5-14.5); WHITE BLOOD COUNT 12.2 X10'3 (4.5-11.0)
[2023-10-05 04:08] LABS: ALANINE AMINOTRANSFERASE 35 U/L (12-78); ALBUMIN 4.5 G/DL (3.4-5.0); ALBUMIN/GLOBULIN RATIO 1.1 (1.1-1.5); ALKALINE PHOSPHATASE 132 IU/L (46-116); ANION GAP 9 (8-16); ASPARTATE AMINO TRANSFERASE 27 U/L (10-37); BILIRUBIN,TOTAL 0.4 MG/DL (0.1-1.0); BLOOD UREA NITROGEN 7 MG/DL (7-18); BUN/CREATININE RATIO 8.3 (10.0-20.0); CALCIUM 9.4 MG/DL (8.5-10.1); CHLORIDE 101 MMOL/L (99-107); CREATININE 0.84 MG/DL (0.60-1.10); GLUCOSE 114 MG/DL (70-104); LIPASE 40 U/L (16-77); POTASSIUM 3.6 MMOL/L (3.5-5.1); SODIUM 139 MMOL/L (135-145); TOTAL PROTEIN 8.7 G/DL (6.4-8.2); eCRCL 128 ML/MIN; eGFR > 90 ML/MIN
[2023-10-05] MEDS ORDERED: normal saline 1000ml 1,000 ML IV ONE (05:20)
[2023-10-05] MEDS ORDERED: morphine 4 MG/ML inj SYRINge IV ONE (05:20)
[2023-10-05] MEDS ORDERED: sucralfate 1 gm tablet PO ONE (05:20)
[2023-10-05] MEDS ORDERED: famotidine/PF 10 mg/ml inj IV ONE (05:20)
[2023-10-05] MEDS ORDERED: ondansetron/PF 4mg/2ml inj IV ONE (05:20)
[2023-10-05] MEDS ORDERED: mag hydrox/Alum hydrox/simeth 30ml oral suspension PO ONE (05:20)
[2023-10-05] MEDS ORDERED: morphine 2 MG/ML inj. syringe IV ONE (06:00)
[2023-10-05 06:02] VITALS: TEMP 98.4
[2023-10-05 07:21] LABS: BILIRUBIN,URINE NEGATIVE (Neg); CLARITY,URINE CLEAR (Clear); COLOR,URINE STRAW (Yellow); GLUCOSE, URINE NEGATIVE (Neg); KETONES,URINE NEGATIVE (Neg); LEUKOCYTE ESTERASE ,URINE NEGATIVE (Neg); NITRITES, URINE NEGATIVE (Neg); OCCULT BLOOD,URINE NEGATIVE (Neg); PH,URINE 6.5 (4.8-8.0); PROTEIN,URINE NEGATIVE (Neg); UROBILINOGEN,URINE 0.2 E.U/dL (0.2-1.0)
[2023-10-05 07:22] LABS: UA COLLECTION TYPE VOIDED
[2023-10-05] MEDS ORDERED: normal saline 1000ML IV soln IVB ONE (07:35)
[2023-10-05] MEDS ORDERED: metoclopramide 5 mg/ml inj IV ONE (07:35)
[2023-10-05] MEDS ORDERED: LORazepam 2 mg/ml vial IV ONE (07:35)
[2023-10-05] MEDS ORDERED: ONDA4TAB12 PO (08:54)
[2023-10-05] MEDS ORDERED: HYDR-3965 PO (08:54)
[2023-10-05 10:09] VITALS: BP 104/71; PULSE 71; RESP 18; O2SAT 95
[2023-10-06] MEDS ORDERED: ONDA8TAB13 PO ×2 (04:35)
[2023-10-06] MEDS ORDERED: DICY20TA17 PO ×2 (04:36)
== END 2023-10-05 10:10 | disposition home or self-care (01) ==
LOC: ER 03:20
DX: R10.10 Upper abdominal pain, unspecified (principal); R11.2 Nausea with vomiting, unspecified; Z79.899 Other long term (current) drug therapy
CPT/HCPCS: 36415; 74022; 80053; 81003; 83690; 85025; 96361; 96374; 96375; 96376; 99284; J2060; J2270; J2405; J2765; J3490; J7030

== ENCOUNTER 2023-10-05 23:36 | Emergency (ER) | payer BC ==
[~2023-10-05] VITALS: Ht 175.3 cm; Wt 80.0 kg
[2023-10-05 23:39] VITALS: TEMP 98
[2023-10-06 00:10] LABS: BASOPHILS # (AUTO) 0.1 X10'3 (0-0.2); BASOPHILS % (AUTO) 0.8 % (0-1); EOSINOPHILS # (AUTO) 0.1 X10'3 (0-0.9); EOSINOPHILS % (AUTO) 1.6 % (0-6); HEMATOCRIT 37.9 % (42.0-52.0); HEMOGLOBIN 12.7 g/dl (14.0-17.9); LYMPHOCYTES # (AUTO) 2.8 X10'3 (1.1-4.8); LYMPHOCYTES % (AUTO) 30.5 % (21-51); MEAN CORPUSCULAR HEMOGLOBIN 29.9 PG (27.0-31.0); MEAN CORPUSCULAR HGB CONC 33.6 g/dL (33.0-36.5); MEAN CORPUSCULAR VOLUME 89.1 FL (78-98); MEAN PLATELET VOLUME 7.2 FL (7.4-10.4); MONOCYTES # (AUTO) 0.9 X10'3 (0-0.9); MONOCYTES % (AUTO) 9.8 % (2-12); NEUTROPHILS # (AUTO) 5.2 X10'3 (1.8-7.7); NEUTROPHILS % (AUTO) 57.3 % (42-75); PLATELET COUNT 266 X10'3 (140-440); RED BLOOD COUNT 4.25 X10'6 (4.70-6.10); RED CELL DISTRIBUTION WIDTH 13.9 % (11.5-14.5); WHITE BLOOD COUNT 9.1 X10'3 (4.5-11.0)
[2023-10-06 00:31] LABS: ALANINE AMINOTRANSFERASE 29 U/L (12-78); ALBUMIN 3.8 G/DL (3.4-5.0); ALBUMIN/GLOBULIN RATIO 1.1 (1.1-1.5); ALKALINE PHOSPHATASE 131 IU/L (46-116); ANION GAP 9 (8-16); ASPARTATE AMINO TRANSFERASE 21 U/L (10-37); BILIRUBIN,TOTAL 0.3 MG/DL (0.1-1.0); BLOOD UREA NITROGEN 8 MG/DL (7-18); BUN/CREATININE RATIO 8.9 (10.0-20.0); CALCIUM 8.8 MG/DL (8.5-10.1); CHLORIDE 103 MMOL/L (99-107); GLUCOSE 106 MG/DL (70-104); LIPASE 26 U/L (16-77); POTASSIUM 3.8 MMOL/L (3.5-5.1); SODIUM 139 MMOL/L (135-145); TOTAL CARBON DIOXIDE 27.4 MMOL/L (24-32); TOTAL PROTEIN 7.3 G/DL (6.4-8.2); eCRCL 116 ML/MIN; eGFR > 90 ML/MIN
[2023-10-06 00:33] LABS: BILIRUBIN,URINE NEGATIVE (Neg); CLARITY,URINE CLEAR (Clear); COLOR,URINE STRAW (Yellow); GLUCOSE, URINE NEGATIVE (Neg); KETONES,URINE NEGATIVE (Neg); LEUKOCYTE ESTERASE ,URINE NEGATIVE (Neg); NITRITES, URINE NEGATIVE (Neg); OCCULT BLOOD,URINE NEGATIVE (Neg); PROTEIN,URINE NEGATIVE (Neg); UROBILINOGEN,URINE 0.2 E.U/dL (0.2-1.0)
[2023-10-06 00:36] LABS: UA COLLECTION TYPE CLN CATCH MIDSTREAM
[2023-10-06 03:04] VITALS: BP 175/100; PULSE 75; O2SAT 99
[2023-10-06] MEDS ORDERED: HYDROcodone/acetaminophen 5mg/325mg tablet PO ONE (04:35)
[2023-10-06] MEDS ORDERED: ondansetron 4mg rapidly disintigrating tab PO ONE (04:35)
[2023-10-06] MEDS ORDERED: ONDA8TAB13 PO ×2 (04:35)
[2023-10-06] MEDS ORDERED: DICY20TA17 PO ×2 (04:36)
[2023-10-06 04:49] VITALS: RESP 5
[2023-10-07] MEDS ORDERED: NO HOME MEDS (18:11)
== END 2023-10-06 05:25 | disposition home or self-care (01) ==
LOC: ER 23:36
DX: G89.29 Other chronic pain (principal); R10.84 Generalized abdominal pain; F17.200 Nicotine dependence, unspecified, uncomplicated; Z79.899 Other long term (current) drug therapy
CPT/HCPCS: 36415; 80053; 81003; 83690; 85025; 99283

== ENCOUNTER 2023-10-06 19:37 | Inpatient (IN) | payer BC ==
[~2023-10-06] VITALS: Ht 175.3 cm; Wt 81.8 kg
[~2023-10-06 19:37] MED LIST changes: +DICY20TA17 PO
[2023-10-06 20:50] LABS: BASOPHILS % (AUTO) 0.6 % (0-1); EOSINOPHILS # (AUTO) 0.1 X10'3 (0-0.9); HEMATOCRIT 39.5 % (42.0-52.0); HEMOGLOBIN 13.3 g/dl (14.0-17.9); LYMPHOCYTES # (AUTO) 1.9 X10'3 (1.1-4.8); LYMPHOCYTES % (AUTO) 35.5 % (21-51); MEAN CORPUSCULAR HGB CONC 33.5 g/dL (33.0-36.5); MEAN CORPUSCULAR VOLUME 89.4 FL (78-98); MEAN PLATELET VOLUME 7.3 FL (7.4-10.4); MONOCYTES # (AUTO) 0.4 X10'3 (0-0.9); MONOCYTES % (AUTO) 7.9 % (2-12); NEUTROPHILS # (AUTO) 2.9 X10'3 (1.8-7.7); PLATELET COUNT 261 X10'3 (140-440); RED BLOOD COUNT 4.42 X10'6 (4.70-6.10); RED CELL DISTRIBUTION WIDTH 13.8 % (11.5-14.5); WHITE BLOOD COUNT 5.4 X10'3 (4.5-11.0)
[2023-10-06 21:10] LABS: ALANINE AMINOTRANSFERASE 31 U/L (12-78); ALBUMIN 3.8 G/DL (3.4-5.0); ALBUMIN/GLOBULIN RATIO 1.1 (1.1-1.5); ALKALINE PHOSPHATASE 118 IU/L (46-116); ANION GAP 8 (8-16); ASPARTATE AMINO TRANSFERASE 25 U/L (10-37); BILIRUBIN,TOTAL 0.4 MG/DL (0.1-1.0); BLOOD UREA NITROGEN 5 MG/DL (7-18); BUN/CREATININE RATIO 6.7 (10.0-20.0); CHLORIDE 106 MMOL/L (99-107); CREATININE 0.75 MG/DL (0.60-1.10); GLUCOSE 108 MG/DL (70-104); LIPASE 20 U/L (16-77); POTASSIUM 4.2 MMOL/L (3.5-5.1); SODIUM 142 MMOL/L (135-145); TOTAL CARBON DIOXIDE 28.2 MMOL/L (24-32); TOTAL PROTEIN 7.3 G/DL (6.4-8.2); eCRCL 139 ML/MIN; eGFR > 90 ML/MIN
[2023-10-07] MEDS ORDERED: iohexol 300mg/ml 100ml inj. ONE (00:50)
[2023-10-07] MEDS ORDERED: normal saline 1000ml 1,000 ML IV ONE (04:55)
[2023-10-07] MEDS ORDERED: HYDROmorphone 1 mg/ml syringe IV ONE ×2 (04:55→09:05)
[2023-10-07] MEDS ORDERED: ondansetron/PF 4mg/2ml inj IV ONE ×2 (04:55→09:05)
[2023-10-07] MEDS ORDERED: magnesium 2GM in 50ml NS 50 ML IV PRN (10:40)
[2023-10-07] MEDS ORDERED: magnesium hydroxide 30ml (MOM) UD suspension PO PRN (10:40)
[2023-10-07] MEDS ORDERED: mag hydrox/Alum hydrox/simeth 30ml oral suspension PO PRN (10:40)
[2023-10-07] MEDS ORDERED: HYDROcodone/acetaminophen 10/325mg tab PO PRN (10:40)
[2023-10-07] MEDS ORDERED: potassium Cl 20 mEq SR tablet PO PRN ×2 (10:40)
[2023-10-07] MEDS ORDERED: HYDROmorphone inj. 0.5 MG/0.5 ML DISP.SYRIN IV PRN (10:40)
[2023-10-07] MEDS ORDERED: HYDROmorphone/PF 0.2 MG/ML SYRINGE IV PRN (10:40)
[2023-10-07] MEDS ORDERED: magnesium 4gm in 100ml NS 100 ML IV PRN (10:40)
[2023-10-07] MEDS ORDERED: HYDROcodone/acetaminophen 5mg/325mg tablet PO PRN (10:40)
[2023-10-07] MEDS ORDERED: potassium Cl 40MEQ/1/2NS 520ml 520 ML IV PRN (10:40)
[2023-10-07] MEDS ORDERED: acetaminophen 325mg tablet PO PRN ×2 (10:40)
[2023-10-07] MEDS: normal saline 1000ml 1,000 ML IV SCH ×3 (11:22→21:24)
[2023-10-07] MEDS: ondansetron/PF 4mg/2ml inj IV PRN (14:18)
[2023-10-07] MEDS: HYDROmorphone 1 mg/ml syringe IV PRN (17:59)
[2023-10-07] MEDS ORDERED: NO HOME MEDS (18:11)
[2023-10-07] MEDS: docusate sod 100mg capsule PO SCH (20:00)
[2023-10-07] MEDS: K and/or MAG REPLACEMENT MC SCH (20:00)
[2023-10-08] MEDS: HYDROmorphone 1 mg/ml syringe IV PRN ×5 (00:48→19:41)
[2023-10-08] MEDS: normal saline 1000ml 1,000 ML IV SCH ×5 (01:44→19:46)
[2023-10-08 04:11] LABS: BASOPHILS % (AUTO) 0.3 % (0-1); EOSINOPHILS % (AUTO) 0.5 % (0-6); HEMATOCRIT 36.3 % (42.0-52.0); HEMOGLOBIN 12.3 g/dl (14.0-17.9); LYMPHOCYTES # (AUTO) 1.8 X10'3 (1.1-4.8); LYMPHOCYTES % (AUTO) 26.6 % (21-51); MEAN CORPUSCULAR HEMOGLOBIN 30.2 PG (27.0-31.0); MEAN CORPUSCULAR HGB CONC 33.8 g/dL (33.0-36.5); MEAN CORPUSCULAR VOLUME 89.2 FL (78-98); MEAN PLATELET VOLUME 7.9 FL (7.4-10.4); MONOCYTES # (AUTO) 0.5 X10'3 (0-0.9); MONOCYTES % (AUTO) 7.2 % (2-12); NEUTROPHILS # (AUTO) 4.5 X10'3 (1.8-7.7); NEUTROPHILS % (AUTO) 65.4 % (42-75); PLATELET COUNT 255 X10'3 (140-440); RED BLOOD COUNT 4.07 X10'6 (4.70-6.10); RED CELL DISTRIBUTION WIDTH 13.4 % (11.5-14.5); WHITE BLOOD COUNT 6.9 X10'3 (4.5-11.0)
[2023-10-08 04:36] LABS: ALANINE AMINOTRANSFERASE 18 U/L (12-78); ALBUMIN 3.5 G/DL (3.4-5.0); ALBUMIN/GLOBULIN RATIO 1.1 (1.1-1.5); ALKALINE PHOSPHATASE 97 IU/L (46-116); ANION GAP 10 (8-16); ASPARTATE AMINO TRANSFERASE 15 U/L (10-37); BILIRUBIN,TOTAL 0.9 MG/DL (0.1-1.0); BLOOD UREA NITROGEN 3 MG/DL (7-18); CALCIUM 8.5 MG/DL (8.5-10.1); CHLORIDE 103 MMOL/L (99-107); CREATININE 0.75 MG/DL (0.60-1.10); GLUCOSE 100 MG/DL (70-104); LIPASE 16 U/L (16-77); MAGNESIUM 1.8 MG/DL (1.5-2.4); POTASSIUM 3.7 MMOL/L (3.5-5.1); SODIUM 138 MMOL/L (135-145); TOTAL CARBON DIOXIDE 25.2 MMOL/L (24-32); TOTAL PROTEIN 6.7 G/DL (6.4-8.2); eCRCL 139 ML/MIN; eGFR > 90 ML/MIN
[2023-10-08] MEDS: ondansetron/PF 4mg/2ml inj IV PRN ×3 (04:49→22:40)
[2023-10-08 05:44] LABS: BILIRUBIN,URINE NEGATIVE (Neg); CLARITY,URINE CLEAR (Clear); COLOR,URINE STRAW (Yellow); GLUCOSE, URINE NEGATIVE (Neg); KETONES,URINE NEGATIVE (Neg); LEUKOCYTE ESTERASE ,URINE NEGATIVE (Neg); NITRITES, URINE NEGATIVE (Neg); OCCULT BLOOD,URINE NEGATIVE (Neg); PH,URINE 6.5 (4.8-8.0); PROTEIN,URINE NEGATIVE (Neg); UA COLLECTION TYPE URINAL; UROBILINOGEN,URINE 0.2 E.U/dL (0.2-1.0)
[2023-10-08] MEDS: docusate sod 100mg capsule PO SCH ×2 (07:44→19:40)
[2023-10-08] MEDS: K and/or MAG REPLACEMENT MC SCH ×2 (07:45→20:00)
[2023-10-08 08:00] VITALS: BP 149/93; PULSE 64; RESP 16; TEMP 97.8; O2SAT 97
[2023-10-08 10:00] VITALS: BP 135/91; PULSE 73; RESP 15; TEMP 97.3; O2SAT 98
[2023-10-08] MEDS ORDERED: oxyCODONE/APAP 5-325mg tablet PO PRN (13:50)
[2023-10-08] MEDS: oxyCODONE/APAP 10/325mg tablet PO PRN ×2 (16:21→22:40)
[2023-10-08] MEDS: LIPASE/PROTEASE/AMYLASE 4,200 unit CAPSULE.DR PO SCH (17:40)
[2023-10-08 18:00] VITALS: BP 145/93; PULSE 56; RESP 16; TEMP 98.4; O2SAT 96
[2023-10-08 20:00] VITALS: RESP 16; O2SAT 96
[2023-10-08 22:00] VITALS: BP 161/98; PULSE 52; RESP 18; TEMP 98.2; O2SAT 98
[2023-10-09] MEDS: normal saline 1000ml 1,000 ML IV SCH ×5 (01:05→21:56)
[2023-10-09] MEDS: HYDROmorphone 1 mg/ml syringe IV PRN ×5 (01:31→21:51)
[2023-10-09] MEDS: oxyCODONE/APAP 10/325mg tablet PO PRN ×3 (04:50→21:08)
[2023-10-09 06:19] LABS: ALANINE AMINOTRANSFERASE 15 U/L (12-78); ALBUMIN 3.3 G/DL (3.4-5.0); ALKALINE PHOSPHATASE 85 IU/L (46-116); ANION GAP 9 (8-16); ASPARTATE AMINO TRANSFERASE 14 U/L (10-37); BILIRUBIN,TOTAL 0.7 MG/DL (0.1-1.0); BLOOD UREA NITROGEN 3 MG/DL (7-18); BUN/CREATININE RATIO 4.6 (10.0-20.0); CALCIUM 8.4 MG/DL (8.5-10.1); CHLORIDE 104 MMOL/L (99-107); CREATININE 0.65 MG/DL (0.60-1.10); GLUCOSE 80 MG/DL (70-104); LIPASE 44 U/L (16-77); MAGNESIUM 1.8 MG/DL (1.5-2.4); POTASSIUM 3.5 MMOL/L (3.5-5.1); SODIUM 139 MMOL/L (135-145); TOTAL CARBON DIOXIDE 25.6 MMOL/L (24-32); TOTAL PROTEIN 6.6 G/DL (6.4-8.2); eCRCL 160 ML/MIN; eGFR > 90 ML/MIN
[2023-10-09 06:30] VITALS: BP 146/97; PULSE 64; RESP 16; TEMP 98.9; O2SAT 98
[2023-10-09 06:30] LABS: BASOPHILS % (AUTO) 0.4 % (0-1); EOSINOPHILS # (AUTO) 0.1 X10'3 (0-0.9); HEMATOCRIT 35.8 % (42.0-52.0); HEMOGLOBIN 12.2 g/dl (14.0-17.9); LYMPHOCYTES # (AUTO) 1.9 X10'3 (1.1-4.8); LYMPHOCYTES % (AUTO) 25.9 % (21-51); MEAN CORPUSCULAR HEMOGLOBIN 30.2 PG (27.0-31.0); MEAN CORPUSCULAR HGB CONC 34.2 g/dL (33.0-36.5); MEAN CORPUSCULAR VOLUME 88.3 FL (78-98); MEAN PLATELET VOLUME 7.9 FL (7.4-10.4); MONOCYTES # (AUTO) 0.6 X10'3 (0-0.9); MONOCYTES % (AUTO) 7.7 % (2-12); NEUTROPHILS # (AUTO) 4.7 X10'3 (1.8-7.7); PLATELET COUNT 227 X10'3 (140-440); RED BLOOD COUNT 4.05 X10'6 (4.70-6.10); RED CELL DISTRIBUTION WIDTH 13.3 % (11.5-14.5); WHITE BLOOD COUNT 7.2 X10'3 (4.5-11.0)
[2023-10-09 07:09] VITALS: RESP 16; O2SAT 98
[2023-10-09] MEDS: docusate sod 100mg capsule PO SCH ×2 (07:40→21:07)
[2023-10-09] MEDS: K and/or MAG REPLACEMENT MC SCH ×2 (07:40→20:00)
[2023-10-09] MEDS: ondansetron/PF 4mg/2ml inj IV PRN ×2 (07:47→21:09)
[2023-10-09] MEDS: LIPASE/PROTEASE/AMYLASE 4,200 unit CAPSULE.DR PO SCH ×3 (07:51→17:44)
[2023-10-09 10:00] VITALS: BP 142/103; PULSE 71; RESP 15; TEMP 97.7; O2SAT 97
[2023-10-09 18:00] VITALS: BP 154/97; PULSE 62; RESP 16; TEMP 97.6; O2SAT 95
[2023-10-09 19:30] VITALS: RESP 16; O2SAT 95
[2023-10-09 22:00] VITALS: BP 156/95; PULSE 54; RESP 19; TEMP 98.5; O2SAT 97
[2023-10-10] MEDS: oxyCODONE/APAP 10/325mg tablet PO PRN (01:38)
[2023-10-10] MEDS: HYDROmorphone 1 mg/ml syringe IV PRN ×2 (02:34→08:25)
[2023-10-10] MEDS: normal saline 1000ml 1,000 ML IV SCH ×2 (02:38→08:31)
[2023-10-10 05:55] LABS: BASOPHILS % (AUTO) 0.6 % (0-1); EOSINOPHILS # (AUTO) 0.1 X10'3 (0-0.9); EOSINOPHILS % (AUTO) 0.8 % (0-6); HEMATOCRIT 37.5 % (42.0-52.0); HEMOGLOBIN 12.7 g/dl (14.0-17.9); LYMPHOCYTES # (AUTO) 2.1 X10'3 (1.1-4.8); LYMPHOCYTES % (AUTO) 30.9 % (21-51); MEAN CORPUSCULAR HEMOGLOBIN 29.9 PG (27.0-31.0); MEAN CORPUSCULAR HGB CONC 33.9 g/dL (33.0-36.5); MEAN CORPUSCULAR VOLUME 87.9 FL (78-98); MEAN PLATELET VOLUME 8.1 FL (7.4-10.4); MONOCYTES # (AUTO) 0.5 X10'3 (0-0.9); MONOCYTES % (AUTO) 7.3 % (2-12); NEUTROPHILS % (AUTO) 60.4 % (42-75); PLATELET COUNT 243 X10'3 (140-440); RED BLOOD COUNT 4.26 X10'6 (4.70-6.10); WHITE BLOOD COUNT 6.7 X10'3 (4.5-11.0)
[2023-10-10 06:00] VITALS: BP 168/99; PULSE 53; RESP 20; TEMP 98.5; O2SAT 96
[2023-10-10 06:21] LABS: ALANINE AMINOTRANSFERASE 16 U/L (12-78); ALBUMIN 3.4 G/DL (3.4-5.0); ALBUMIN/GLOBULIN RATIO 1.1 (1.1-1.5); ALKALINE PHOSPHATASE 89 IU/L (46-116); ANION GAP 12 (8-16); ASPARTATE AMINO TRANSFERASE 14 U/L (10-37); BILIRUBIN,TOTAL 0.9 MG/DL (0.1-1.0); BLOOD UREA NITROGEN 3 MG/DL (7-18); BUN/CREATININE RATIO 4.4 (10.0-20.0); CALCIUM 8.5 MG/DL (8.5-10.1); CHLORIDE 100 MMOL/L (99-107); CREATININE 0.68 MG/DL (0.60-1.10); GLUCOSE 77 MG/DL (70-104); LIPASE 23 U/L (16-77); MAGNESIUM 1.7 MG/DL (1.5-2.4); POTASSIUM 3.3 MMOL/L (3.5-5.1); SODIUM 136 MMOL/L (135-145); TOTAL CARBON DIOXIDE 24.3 MMOL/L (24-32); TOTAL PROTEIN 6.6 G/DL (6.4-8.2); eCRCL 153 ML/MIN; eGFR > 90 ML/MIN
[2023-10-10] MEDS: LIPASE/PROTEASE/AMYLASE 4,200 unit CAPSULE.DR PO SCH (08:00)
[2023-10-10] MEDS: ondansetron/PF 4mg/2ml inj IV PRN (08:25)
[2023-10-10 10:30] VITALS: BP 144/96; PULSE 67; RESP 14; TEMP 97.7; O2SAT 96
[2023-10-10] MEDS: docusate sod 100mg capsule PO SCH (10:32)
[2023-10-10] MEDS ORDERED: HYDROmorphone inj. 0.5 MG/0.5 ML DISP.SYRIN IV PRN (11:05)
[2023-10-10] MEDS ORDERED: oxyCODONE/APAP 10/325mg tablet PO PRN (11:05)
[2023-10-10] MEDS ORDERED: PER5325T PO (11:12)
[2023-10-10 14:18] VITALS: RESP 15
[2023-10-10] MEDS ORDERED: potassium Cl 40MEQ/1/2NS 520ml 520 ML IV PRN ×2 (16:10)
[2023-10-10] MEDS ORDERED: potassium Cl 20 mEq SR tablet PO PRN ×2 (16:10)
[2023-10-10] MEDS ORDERED: K and/or MAG REPLACEMENT MC SCH (20:00)
[2023-10-11 08:21] LABS: HBSAG SCREEN Negative (Negative); HEP B CORE AB, IGM Negative (Negative); HEP B CORE AB, TOT Negative (Negative)
== END 2023-10-10 16:20 | disposition home or self-care (01) | DRG 440 ==
LOC: ER 19:38 → ED HOLD 10-07 10:43 → EDBEDREQ 10-08 05:49 → ORTHO 4S 10-08 07:30
PROVIDERS: ADMIT Family Medicine; ATTEND Family Medicine
PROC: BW211ZZ Computerized Tomography (CT Scan) of Abdomen and Pelvis using Low Osmolar Contrast (ICD-10-PCS; principal; 2023-10-07)
DX: K85.20 Alcohol induced acute pancreatitis without necrosis or infection (principal); K86.0 Alcohol-induced chronic pancreatitis; Z82.49 Family history of ischemic heart disease and other diseases of the circulatory system; Z76.5 Malingerer [conscious simulation]
CPT/HCPCS: 36415; 74177; 80053; 81003; 83690; 83735; 85025; 86704; 86705; 87081; 87340; 99285; G0378; J1170; J2405; J3490; J7030; Q9967

== ENCOUNTER 2023-11-21 00:28 | Emergency (ER) | payer BC ==
[~2023-11-21] VITALS: Ht 177.8 cm; Wt 79.5 kg
[~2023-11-21 00:28] MED LIST changes: -DICY20TA17 PO; -HYDR-3965 PO; +NO HOME MEDS; -OMEP20CA16 PO; -ONDA4TAB12 PO; -ONDA8TAB13 PO; -OXYC-145 PO; -OXYC1TAB17 PO; +PER5325T PO; -TRAM50TA2 PO
[2023-11-21 02:38] LABS: ALANINE AMINOTRANSFERASE 23 U/L (12-78); ALBUMIN 3.9 G/DL (3.4-5.0); ALBUMIN/GLOBULIN RATIO 1.2 (1.1-1.5); ALKALINE PHOSPHATASE 118 IU/L (46-116); ANION GAP 12 (8-16); ASPARTATE AMINO TRANSFERASE 12 U/L (10-37); BILIRUBIN,TOTAL 0.3 MG/DL (0.1-1.0); BLOOD UREA NITROGEN 6 MG/DL (7-18); BUN/CREATININE RATIO 8.5 (10.0-20.0); CHLORIDE 107 MMOL/L (99-107); CREATININE 0.71 MG/DL (0.60-1.10); GLUCOSE 106 MG/DL (70-104); LIPASE 26 U/L (16-77); POTASSIUM 3.5 MMOL/L (3.5-5.1); SODIUM 146 MMOL/L (135-145); TOTAL CARBON DIOXIDE 27.3 MMOL/L (24-32); TOTAL PROTEIN 7.1 G/DL (6.4-8.2); eCRCL 151 ML/MIN; eGFR > 90 ML/MIN
[2023-11-21 02:56] LABS: BASOPHILS # (AUTO) 0.1 X10'3 (0-0.2); BASOPHILS % (AUTO) 0.6 % (0-1); EOSINOPHILS # (AUTO) 0.1 X10'3 (0-0.9); EOSINOPHILS % (AUTO) 1.1 % (0-6); HEMATOCRIT 39.6 % (42.0-52.0); HEMOGLOBIN 13.5 g/dl (14.0-17.9); LYMPHOCYTES # (AUTO) 3.2 X10'3 (1.1-4.8); LYMPHOCYTES % (AUTO) 31.5 % (21-51); MEAN CORPUSCULAR HEMOGLOBIN 29.9 PG (27.0-31.0); MEAN CORPUSCULAR HGB CONC 34.1 g/dL (33.0-36.5); MEAN CORPUSCULAR VOLUME 87.7 FL (78-98); MONOCYTES # (AUTO) 0.7 X10'3 (0-0.9); MONOCYTES % (AUTO) 6.9 % (2-12); NEUTROPHILS % (AUTO) 59.9 % (42-75); PLATELET COUNT 272 X10'3 (140-440); RED BLOOD COUNT 4.51 X10'6 (4.70-6.10); RED CELL DISTRIBUTION WIDTH 13.7 % (11.5-14.5); WHITE BLOOD COUNT 10.1 X10'3 (4.5-11.0)
[2023-11-21 06:44] VITALS: TEMP 98.4
[2023-11-21 08:06] VITALS: BP 153/113; PULSE 94; O2SAT 99
[2023-11-21] MEDS: normal saline 1000ML IV soln IVB ONE (09:43)
[2023-11-21] MEDS: diphenhydrAMINE 50 mg/ml inj IV ONE (09:44)
[2023-11-21] MEDS: metoclopramide 5 mg/ml inj IV ONE (09:45)
[2023-11-21] MEDS: morphine 4 MG/ML inj SYRINge IV ONE (09:45)
[2023-11-21 10:33] VITALS: RESP 17
[2023-11-21] MEDS: oxyCODONE/APAP 10/325mg tablet PO ONE (10:33)
[2023-11-21] MEDS ORDERED: OXYC-138 PO (10:36)
[2023-11-21] MEDS ORDERED: ONDA4TAB12 PO (10:36)
[2023-11-21 11:02] LABS: BILIRUBIN,URINE NEGATIVE (Neg); CLARITY,URINE CLEAR (Clear); COLOR,URINE YELLOW (Yellow); GLUCOSE, URINE NEGATIVE (Neg); KETONES,URINE NEGATIVE (Neg); LEUKOCYTE ESTERASE ,URINE NEGATIVE (Neg); NITRITES, URINE NEGATIVE (Neg); OCCULT BLOOD,URINE NEGATIVE (Neg); PROTEIN,URINE NEGATIVE (Neg); UROBILINOGEN,URINE 0.2 E.U/dL (0.2-1.0)
[2023-11-21 11:07] LABS: UA COLLECTION TYPE VOIDED
== END 2023-11-21 11:00 | disposition home or self-care (01) ==
LOC: ER 00:29
DX: K86.1 Other chronic pancreatitis (principal); Z79.899 Other long term (current) drug therapy
CPT/HCPCS: 36415; 80053; 81003; 83690; 85025; 96361; 96374; 96375; 99284; J1200; J2270; J2765; J7030

== ENCOUNTER 2023-11-30 23:49 | Emergency (ER) | payer BC ==
[~2023-11-30] VITALS: Ht 175.3 cm; Wt 82.7 kg
[~2023-11-30 23:49] MED LIST changes: +ONDA4TAB12 PO; +OXYC-138 PO
[2023-12-01 00:14] VITALS: TEMP 97.8
[2023-12-01 00:54] LABS: BILIRUBIN,URINE NEGATIVE (Neg); CLARITY,URINE CLEAR (Clear); COLOR,URINE YELLOW (Yellow); GLUCOSE, URINE NEGATIVE (Neg); KETONES,URINE NEGATIVE (Neg); LEUKOCYTE ESTERASE ,URINE NEGATIVE (Neg); NITRITES, URINE NEGATIVE (Neg); OCCULT BLOOD,URINE NEGATIVE (Neg); PROTEIN,URINE NEGATIVE (Neg); UROBILINOGEN,URINE 0.2 E.U/dL (0.2-1.0)
[2023-12-01 00:55] LABS: UA COLLECTION TYPE CLN CATCH MIDSTREAM
[2023-12-01 00:58] LABS: MEAN CORPUSCULAR HGB CONC 34.2 g/dL (33.0-36.5)
[2023-12-01 01:06] LABS: BASOPHILS # (AUTO) 0.1 X10'3 (0-0.2); BASOPHILS % (AUTO) 0.8 % (0-1); EOSINOPHILS # (AUTO) 0.1 X10'3 (0-0.9); EOSINOPHILS % (AUTO) 1.5 % (0-6); HEMATOCRIT 45.4 % (42.0-52.0); HEMOGLOBIN 15.5 g/dl (14.0-17.9); LYMPHOCYTES # (AUTO) 2.6 X10'3 (1.1-4.8); LYMPHOCYTES % (AUTO) 33.1 % (21-51); MEAN CORPUSCULAR VOLUME 87.8 FL (78-98); MEAN PLATELET VOLUME 8.2 FL (7.4-10.4); MONOCYTES # (AUTO) 0.5 X10'3 (0-0.9); MONOCYTES % (AUTO) 6.7 % (2-12); NEUTROPHILS # (AUTO) 4.5 X10'3 (1.8-7.7); NEUTROPHILS % (AUTO) 57.9 % (42-75); PLATELET COUNT 270 X10'3 (140-440); RED BLOOD COUNT 5.17 X10'6 (4.70-6.10); WHITE BLOOD COUNT 7.8 X10'3 (4.5-11.0)
[2023-12-01 01:09] LABS: ALANINE AMINOTRANSFERASE 24 U/L (12-78); ALBUMIN 4.6 G/DL (3.4-5.0); ALBUMIN/GLOBULIN RATIO 1.1 (1.1-1.5); ALKALINE PHOSPHATASE 124 IU/L (46-116); AMYLASE 59 U/L (25-115); ANION GAP 10 (8-16); ASPARTATE AMINO TRANSFERASE 19 U/L (10-37); BILIRUBIN,TOTAL 0.5 MG/DL (0.1-1.0); BLOOD UREA NITROGEN 7 MG/DL (7-18); CALCIUM 9.1 MG/DL (8.5-10.1); CHLORIDE 103 MMOL/L (99-107); CREATININE 0.87 MG/DL (0.60-1.10); GLUCOSE 95 MG/DL (70-104); LIPASE 21 U/L (16-77); POTASSIUM 4.1 MMOL/L (3.5-5.1); SODIUM 142 MMOL/L (135-145); TOTAL CARBON DIOXIDE 28.7 MMOL/L (24-32); TOTAL PROTEIN 8.8 G/DL (6.4-8.2); eCRCL 120 ML/MIN; eGFR > 90 ML/MIN
[2023-12-01] MEDS ORDERED: HYDR-3965 PO (05:36)
[2023-12-01] MEDS ORDERED: ONDA8TAB13 PO (05:36)
[2023-12-01] MEDS: morphine 10mg/ml inj. IM ONE (05:44)
[2023-12-01] MEDS: ondansetron 4mg rapidly disintigrating tab PO ONE (05:44)
[2023-12-01 05:53] VITALS: BP 149/92; PULSE 89; RESP 16; O2SAT 95
== END 2023-12-01 05:56 | disposition home or self-care (01) ==
LOC: ER 23:49
DX: K86.1 Other chronic pancreatitis (principal); Z79.899 Other long term (current) drug therapy
CPT/HCPCS: 36415; 80053; 81003; 82150; 83690; 85025; 96372; 99283; J2274

== ENCOUNTER 2024-01-07 22:14 | Emergency (ER) | payer BC ==
[~2024-01-07] VITALS: Ht 177.8 cm; Wt 82.0 kg
[~2024-01-07 22:14] MED LIST changes: +ONDA8TAB13 PO
[2024-01-07 23:24] LABS: BASOPHILS # (AUTO) 0.1 X10'3 (0-0.2); BASOPHILS % (AUTO) 0.6 % (0-1); EOSINOPHILS # (AUTO) 0.1 X10'3 (0-0.9); EOSINOPHILS % (AUTO) 0.5 % (0-6); HEMATOCRIT 45.8 % (42.0-52.0); HEMOGLOBIN 15.9 g/dl (14.0-17.9); LYMPHOCYTES # (AUTO) 2.2 X10'3 (1.1-4.8); MEAN CORPUSCULAR HEMOGLOBIN 30.6 PG (27.0-31.0); MEAN CORPUSCULAR HGB CONC 34.6 g/dL (33.0-36.5); MEAN CORPUSCULAR VOLUME 88.4 FL (78-98); MEAN PLATELET VOLUME 7.8 FL (7.4-10.4); MONOCYTES # (AUTO) 0.7 X10'3 (0-0.9); MONOCYTES % (AUTO) 6.2 % (2-12); NEUTROPHILS # (AUTO) 7.5 X10'3 (1.8-7.7); NEUTROPHILS % (AUTO) 71.7 % (42-75); PLATELET COUNT 291 X10'3 (140-440); RED BLOOD COUNT 5.18 X10'6 (4.70-6.10); RED CELL DISTRIBUTION WIDTH 13.6 % (11.5-14.5); WHITE BLOOD COUNT 10.5 X10'3 (4.5-11.0)
[2024-01-07 23:32] LABS: BILIRUBIN,URINE NEGATIVE (Neg); CLARITY,URINE CLEAR (Clear); COLOR,URINE STRAW (Yellow); GLUCOSE, URINE NEGATIVE (Neg); KETONES,URINE NEGATIVE (Neg); LEUKOCYTE ESTERASE ,URINE NEGATIVE (Neg); NITRITES, URINE NEGATIVE (Neg); OCCULT BLOOD,URINE NEGATIVE (Neg); PROTEIN,URINE NEGATIVE (Neg); UROBILINOGEN,URINE 0.2 E.U/dL (0.2-1.0)
[2024-01-07 23:40] LABS: UA COLLECTION TYPE CLN CATCH MIDSTREAM
[2024-01-07 23:45] LABS: ALANINE AMINOTRANSFERASE 49 U/L (12-78); ALBUMIN 4.5 G/DL (3.4-5.0); ALBUMIN/GLOBULIN RATIO 1.1 (1.1-1.5); ALKALINE PHOSPHATASE 135 IU/L (46-116); ANION GAP 14 (8-16); ASPARTATE AMINO TRANSFERASE 65 U/L (10-37); BILIRUBIN,TOTAL 0.6 MG/DL (0.1-1.0); BLOOD UREA NITROGEN 7 MG/DL (7-18); BUN/CREATININE RATIO 7.8 (10.0-20.0); CALCIUM 9.7 MG/DL (8.5-10.1); CHLORIDE 103 MMOL/L (99-107); GLUCOSE 138 MG/DL (70-104); LIPASE 21 U/L (16-77); POTASSIUM 3.4 MMOL/L (3.5-5.1); SODIUM 141 MMOL/L (135-145); TOTAL CARBON DIOXIDE 24.2 MMOL/L (24-32); TOTAL PROTEIN 8.7 G/DL (6.4-8.2); eCRCL 116 ML/MIN; eGFR > 90 ML/MIN
[2024-01-07] MEDS: morphine 4 MG/ML inj SYRINge IV ONE (23:57)
[2024-01-07] MEDS: ondansetron 4mg rapidly disintigrating tab PO ONE (23:57)
[2024-01-07] MEDS: normal saline 1000ml 1,000 ML IV ONE (23:57)
[2024-01-08] MEDS: HYDROmorphone 1 mg/ml syringe IV ONE ×2 (01:19→05:42)
[2024-01-08] MEDS: ondansetron/PF 4mg/2ml inj IV ONE ×2 (01:19→05:42)
[2024-01-08] MEDS: normal saline 1000ML IV soln IVB ONE (01:19)
[2024-01-08] MEDS: LORazepam 2 mg/ml vial IV ONE (02:27)
[2024-01-08 08:00] VITALS: BP 129/94; PULSE 95; TEMP 97.4; O2SAT 99
[2024-01-08 08:52] VITALS: RESP 20
[2024-01-08] MEDS: oxyCODONE/APAP 10/325mg tablet PO ONE (08:52)
== END 2024-01-08 08:54 | disposition home or self-care (01) ==
LOC: ER 22:14
DX: R10.13 Epigastric pain (principal); Z79.899 Other long term (current) drug therapy
CPT/HCPCS: 36415; 74176; 76700; 80053; 81003; 83690; 85025; 96361; 96374; 96375; 96376; 99285; J1170; J2060; J2270; J2405; J7030

== ENCOUNTER 2024-01-16 | Emergency (ER) | payer BC ==
[~2024-01-16] VITALS: Ht 175.3 cm; Wt 81.8 kg
[2024-01-16 00:10] VITALS: BP 122/94; PULSE 115; RESP 17; TEMP 98.2; O2SAT 99
[2024-01-16 01:57] LABS: ALANINE AMINOTRANSFERASE 17 U/L (12-78); ALBUMIN 4.4 G/DL (3.4-5.0); ALBUMIN/GLOBULIN RATIO 1.1 (1.1-1.5); ALKALINE PHOSPHATASE 104 IU/L (46-116); ANION GAP 11 (8-16); ASPARTATE AMINO TRANSFERASE 12 U/L (10-37); BILIRUBIN,TOTAL 0.5 MG/DL (0.1-1.0); BLOOD UREA NITROGEN 7 MG/DL (7-18); BUN/CREATININE RATIO 8.6 (10.0-20.0); CALCIUM 9.8 MG/DL (8.5-10.1); CHLORIDE 104 MMOL/L (99-107); CREATININE 0.81 MG/DL (0.60-1.10); GLUCOSE 97 MG/DL (70-104); LIPASE 20 U/L (16-77); POTASSIUM 4.1 MMOL/L (3.5-5.1); SODIUM 142 MMOL/L (135-145); TOTAL CARBON DIOXIDE 26.8 MMOL/L (24-32); TOTAL PROTEIN 8.3 G/DL (6.4-8.2); eCRCL 129 ML/MIN; eGFR > 90 ML/MIN
[2024-01-16 02:11] LABS: BASOPHILS % (AUTO) 0.4 % (0-1); EOSINOPHILS # (AUTO) 0.1 X10'3 (0-0.9); EOSINOPHILS % (AUTO) 0.5 % (0-6); HEMATOCRIT 45.7 % (42.0-52.0); HEMOGLOBIN 15.6 g/dl (14.0-17.9); LYMPHOCYTES # (AUTO) 2.1 X10'3 (1.1-4.8); LYMPHOCYTES % (AUTO) 18.7 % (21-51); MEAN CORPUSCULAR HEMOGLOBIN 30.4 PG (27.0-31.0); MEAN CORPUSCULAR HGB CONC 34.1 g/dL (33.0-36.5); MEAN CORPUSCULAR VOLUME 89.2 FL (78-98); MEAN PLATELET VOLUME 7.7 FL (7.4-10.4); MONOCYTES # (AUTO) 0.4 X10'3 (0-0.9); MONOCYTES % (AUTO) 3.8 % (2-12); NEUTROPHILS # (AUTO) 8.8 X10'3 (1.8-7.7); NEUTROPHILS % (AUTO) 76.6 % (42-75); PLATELET COUNT 352 X10'3 (140-440); RED BLOOD COUNT 5.12 X10'6 (4.70-6.10); RED CELL DISTRIBUTION WIDTH 13.8 % (11.5-14.5); WHITE BLOOD COUNT 11.5 X10'3 (4.5-11.0)
== END 2024-01-16 06:13 | disposition left against medical advice (07) ==
LOC: ER
DX: R10.9 Unspecified abdominal pain (principal); Z53.21 Procedure and treatment not carried out due to patient leaving prior to being seen by health care provider
CPT/HCPCS: 36415; 80053; 83690; 85025; 99281

== ENCOUNTER 2024-02-17 22:47 | Emergency (ER) | payer BC ==
[~2024-02-17] VITALS: Ht 175.3 cm; Wt 85.0 kg
[2024-02-17 22:51] VITALS: TEMP 98.4
[2024-02-17 23:49] LABS: ALANINE AMINOTRANSFERASE 73 U/L (12-78); ALBUMIN 4.4 G/DL (3.4-5.0); ALBUMIN/GLOBULIN RATIO 1.3 (1.1-1.5); ALKALINE PHOSPHATASE 131 IU/L (46-116); ANION GAP 11 (8-16); ASPARTATE AMINO TRANSFERASE 93 U/L (10-37); BILIRUBIN,TOTAL 0.6 MG/DL (0.1-1.0); BLOOD UREA NITROGEN 9 MG/DL (7-18); BUN/CREATININE RATIO 9.3 (10.0-20.0); CALCIUM 8.8 MG/DL (8.5-10.1); CHLORIDE 107 MMOL/L (99-107); CREATININE 0.97 MG/DL (0.60-1.10); ETHANOL 33 MG/DL (<10); GLUCOSE 114 MG/DL (70-104); LIPASE 24 U/L (16-77); MAGNESIUM 2.2 MG/DL (1.5-2.4); SODIUM 142 MMOL/L (135-145); TOTAL PROTEIN 7.9 G/DL (6.4-8.2); eCRCL 107 ML/MIN; eGFR 89 ML/MIN
[2024-02-17 23:51] LABS: POTASSIUM 2.7 MMOL/L (3.5-5.1)
[2024-02-18 00:03] LABS: PRO BRAIN NATRIURETIC PEPTIDE < 30 PG/ML (0-125)
[2024-02-18] MEDS: ondansetron/PF 4mg/2ml inj IV ONE (00:13)
[2024-02-18] MEDS: morphine 4 MG/ML inj SYRINge IV ONE (00:13)
[2024-02-18 00:16] LABS: BASOPHILS % (AUTO) 0.6 % (0-1); EOSINOPHILS # (AUTO) 0.1 X10'3 (0-0.9); EOSINOPHILS % (AUTO) 1.5 % (0-6); HEMATOCRIT 43.8 % (42.0-52.0); LYMPHOCYTES # (AUTO) 2.8 X10'3 (1.1-4.8); LYMPHOCYTES % (AUTO) 32.7 % (21-51); MEAN CORPUSCULAR HEMOGLOBIN 30.6 PG (27.0-31.0); MEAN CORPUSCULAR HGB CONC 34.2 g/dL (33.0-36.5); MEAN CORPUSCULAR VOLUME 89.3 FL (78-98); MONOCYTES # (AUTO) 0.6 X10'3 (0-0.9); MONOCYTES % (AUTO) 7.3 % (2-12); NEUTROPHILS % (AUTO) 57.9 % (42-75); PLATELET COUNT 273 X10'3 (140-440); RED BLOOD COUNT 4.91 X10'6 (4.70-6.10); RED CELL DISTRIBUTION WIDTH 13.2 % (11.5-14.5); WHITE BLOOD COUNT 8.6 X10'3 (4.5-11.0)
[2024-02-18 00:17] LABS: CLARITY,URINE CLEAR (Clear); COLOR,URINE STRAW (Yellow); UA COLLECTION TYPE CLN CATCH MIDSTREAM
[2024-02-18] MEDS: potassium Cl 20 mEq SR tablet PO STA (00:17)
[2024-02-18 00:18] LABS: BILIRUBIN,URINE NEGATIVE (Neg); GLUCOSE, URINE NEGATIVE (Neg); KETONES,URINE NEGATIVE (Neg); LEUKOCYTE ESTERASE ,URINE NEGATIVE (Neg); NITRITES, URINE NEGATIVE (Neg); OCCULT BLOOD,URINE NEGATIVE (Neg); PROTEIN,URINE NEGATIVE (Neg); UROBILINOGEN,URINE 0.2 E.U/dL (0.2-1.0)
[2024-02-18 00:28] LABS: URINE AMPHETAMINE SCREEN NEGATIVE (Neg); URINE BARBITUATE SCREEN NEGATIVE (Neg); URINE BENZODIAZEPINES SCREEN NEGATIVE (Neg); URINE CANNABINOID SCREEN NEGATIVE (Neg); URINE COCAINE SCREEN NEGATIVE (Neg); URINE METHADONE SCREEN NEGATIVE (Neg); URINE PHENCYCLIDINE SCREEN NEGATIVE (Neg)
[2024-02-18] MEDS ORDERED: HYDR-3965 PO (00:32)
[2024-02-18 00:58] VITALS: BP 122/54; PULSE 130; RESP 18; O2SAT 98
== END 2024-02-18 00:59 | disposition home or self-care (01) ==
LOC: ER 22:48
DX: G89.29 Other chronic pain (principal); R10.9 Unspecified abdominal pain; R00.0 Tachycardia, unspecified; Z79.899 Other long term (current) drug therapy
CPT/HCPCS: 36415; 71045; 80053; 80305; 80320; 81003; 83690; 83735; 83880; 84484; 85025; 93005; 96374; 96375; 99285; J2270; J2405

== ENCOUNTER 2024-02-24 05:20 | Emergency (ER) | payer BC ==
[~2024-02-24] VITALS: Ht 175.3 cm; Wt 84.0 kg
[~2024-02-24 05:20] MED LIST changes: +HYDR-3965 PO
[2024-02-24 05:25] VITALS: TEMP 99.3
[2024-02-24 05:58] LABS: BILIRUBIN,URINE NEGATIVE (Neg); CLARITY,URINE CLEAR (Clear); COLOR,URINE YELLOW (Yellow); GLUCOSE, URINE NEGATIVE (Neg); KETONES,URINE NEGATIVE (Neg); LEUKOCYTE ESTERASE ,URINE NEGATIVE (Neg); NITRITES, URINE NEGATIVE (Neg); OCCULT BLOOD,URINE NEGATIVE (Neg); PH,URINE 6.5 (4.8-8.0); PROTEIN,URINE NEGATIVE (Neg); UROBILINOGEN,URINE 0.2 E.U/dL (0.2-1.0)
[2024-02-24 06:02] LABS: UA COLLECTION TYPE CLN CATCH MIDSTREAM
[2024-02-24 06:09] LABS: BASOPHILS % (AUTO) 0.4 % (0-1); EOSINOPHILS # (AUTO) 0.2 X10'3 (0-0.9); EOSINOPHILS % (AUTO) 1.7 % (0-6); LYMPHOCYTES # (AUTO) 4.1 X10'3 (1.1-4.8); LYMPHOCYTES % (AUTO) 47.9 % (21-51); MEAN CORPUSCULAR HEMOGLOBIN 31.1 PG (27.0-31.0); MEAN CORPUSCULAR HGB CONC 34.9 g/dL (33.0-36.5); MEAN CORPUSCULAR VOLUME 89.2 FL (78-98); MEAN PLATELET VOLUME 8.5 FL (7.4-10.4); MONOCYTES # (AUTO) 0.5 X10'3 (0-0.9); MONOCYTES % (AUTO) 6.2 % (2-12); NEUTROPHILS # (AUTO) 3.8 X10'3 (1.8-7.7); NEUTROPHILS % (AUTO) 43.8 % (42-75); PLATELET COUNT 280 X10'3 (140-440); RED BLOOD COUNT 4.82 X10'6 (4.70-6.10); RED CELL DISTRIBUTION WIDTH 12.7 % (11.5-14.5); WHITE BLOOD COUNT 8.6 X10'3 (4.5-11.0)
[2024-02-24 06:15] LABS: ALANINE AMINOTRANSFERASE 24 U/L (12-78); ALBUMIN 4.5 G/DL (3.4-5.0); ALBUMIN/GLOBULIN RATIO 1.3 (1.1-1.5); ALKALINE PHOSPHATASE 101 IU/L (46-116); AMYLASE 41 U/L (25-115); ANION GAP 7 (8-16); ASPARTATE AMINO TRANSFERASE 12 U/L (10-37); BILIRUBIN,TOTAL 0.4 MG/DL (0.1-1.0); BLOOD UREA NITROGEN 8 MG/DL (7-18); BUN/CREATININE RATIO 7.6 (10.0-20.0); CALCIUM 9.1 MG/DL (8.5-10.1); CHLORIDE 104 MMOL/L (99-107); CREATININE 1.05 MG/DL (0.60-1.10); GLUCOSE 106 MG/DL (70-104); LIPASE 21 U/L (16-77); POTASSIUM 3.8 MMOL/L (3.5-5.1); SODIUM 140 MMOL/L (135-145); TOTAL PROTEIN 8.1 G/DL (6.4-8.2); eCRCL 99 ML/MIN; eGFR 81 ML/MIN
[2024-02-24] MEDS: normal saline 1000ml 1,000 ML IV ONE (08:31)
[2024-02-24 08:42] LABS: ETHANOL < 10 MG/DL (<10)
[2024-02-24] MEDS ORDERED: iohexol 300mg/ml 100ml inj. ONE (08:43)
[2024-02-24] MEDS: ketorolac tromethamine 15mg/ml inj. IV ONE (08:48)
[2024-02-24] MEDS: normal saline 1000ML IV soln IVB ONE (08:48)
[2024-02-24 09:25] LABS: URINE AMPHETAMINE SCREEN NEGATIVE (Neg); URINE BARBITUATE SCREEN NEGATIVE (Neg); URINE BENZODIAZEPINES SCREEN NEGATIVE (Neg); URINE CANNABINOID SCREEN NEGATIVE (Neg); URINE COCAINE SCREEN NEGATIVE (Neg); URINE METHADONE SCREEN NEGATIVE (Neg); URINE PHENCYCLIDINE SCREEN NEGATIVE (Neg)
[2024-02-24] MEDS: morphine 4 MG/ML inj SYRINge IV ONE (09:53)
[2024-02-24] MEDS: morphine 2 MG/ML inj. syringe IV ONE (12:04)
[2024-02-24 12:18] VITALS: BP 114/98; PULSE 65; RESP 16; O2SAT 98
== END 2024-02-24 12:22 | disposition home or self-care (01) ==
LOC: ER 05:21
DX: R10.84 Generalized abdominal pain (principal); Z79.899 Other long term (current) drug therapy
CPT/HCPCS: 36415; 74177; 80053; 80305; 80320; 81003; 82150; 83690; 84145; 85025; 96361; 96374; 96375; 96376; 99285; J1885; J2270; J3490; J7030; Q9967

== ENCOUNTER 2024-05-28 07:45 | Emergency (ER) | payer BC ==
[~2024-05-28] VITALS: Ht 175.3 cm; Wt 84.7 kg
[~2024-05-28 07:45] MED LIST changes: -HYDR-3965 PO; +ONDA-243 PO; +ONDA-245 PO; -ONDA4TAB12 PO; -ONDA8TAB13 PO
[2024-05-28 08:01] VITALS: TEMP 97.5
[2024-05-28 08:54] LABS: BASOPHILS % (AUTO) 0.3 % (0-1); EOSINOPHILS # (AUTO) 0.1 X10'3 (0-0.9); EOSINOPHILS % (AUTO) 0.6 % (0-6); HEMATOCRIT 44.6 % (42.0-52.0); HEMOGLOBIN 14.8 g/dl (14.0-17.9); LYMPHOCYTES # (AUTO) 2.6 X10'3 (1.1-4.8); LYMPHOCYTES % (AUTO) 20.1 % (21-51); MEAN CORPUSCULAR HEMOGLOBIN 31.1 PG (27.0-31.0); MEAN CORPUSCULAR HGB CONC 33.1 g/dL (33.0-36.5); MEAN CORPUSCULAR VOLUME 93.8 FL (78-98); MONOCYTES % (AUTO) 7.5 % (2-12); NEUTROPHILS # (AUTO) 9.3 X10'3 (1.8-7.7); NEUTROPHILS % (AUTO) 71.5 % (42-75); PLATELET COUNT 385 X10'3 (140-440); RED BLOOD COUNT 4.75 X10'6 (4.70-6.10); RED CELL DISTRIBUTION WIDTH 14.8 % (11.5-14.5); WHITE BLOOD COUNT 13.1 X10'3 (4.5-11.0)
[2024-05-28 09:04] LABS: ALANINE AMINOTRANSFERASE 36 U/L (12-78); ALBUMIN 4.6 G/DL (3.4-5.0); ALBUMIN/GLOBULIN RATIO 1.2 (1.1-1.5); ALKALINE PHOSPHATASE 124 IU/L (46-116); ANION GAP 14 (8-16); ASPARTATE AMINO TRANSFERASE 23 U/L (10-37); BILIRUBIN,TOTAL 0.4 MG/DL (0.1-1.0); BLOOD UREA NITROGEN 3 MG/DL (7-18); BUN/CREATININE RATIO 4.1 (10.0-20.0); CHLORIDE 101 MMOL/L (99-107); CREATININE 0.73 MG/DL (0.60-1.10); GLUCOSE 115 MG/DL (70-104); LIPASE 29 U/L (16-77); POTASSIUM 3.6 MMOL/L (3.5-5.1); SODIUM 141 MMOL/L (135-145); TOTAL CARBON DIOXIDE 26.1 MMOL/L (24-32); TOTAL PROTEIN 8.5 G/DL (6.4-8.2); eCRCL 143 ML/MIN; eGFR > 90 ML/MIN
[2024-05-28] MEDS ORDERED: normal saline 1000ml 1,000 ML IV ONE (09:50)
[2024-05-28] MEDS: diphenhydrAMINE 50 mg/ml inj IV ONE (10:07)
[2024-05-28] MEDS: metoclopramide 5 mg/ml inj IV ONE (10:07)
[2024-05-28 10:11] VITALS: BP 134/92; PULSE 100; RESP 16; O2SAT 99
[2024-05-28] MEDS ORDERED: ketorolac trometh 30MG/ML vial 30 MG/ML VIAL IV ONE (10:40)
--- NOTE | 2024-05-28 10:45 | NUR ---
THIS RN WENT IN TO GIVE MEDS TO PT. AFTER RECIEVING ORDERS FROM DR. RAYGOZA FOR PAIN. PT. REFUSED AND STATED HE WANTED TO LEAVE AND GO TO [facility]. DR RAYGOZA NOTIFIED AND SIGNED AMA FORM WELL PT. SIGNED AMA FORM. IV DC'D WITH CATHETER INTACT, BRITTNEE APPLIED.
[2024-05-28] MEDS ORDERED: acetaminophen 1,000mg/100ml IV 100 ML IV SCH (14:00)
== END 2024-05-28 10:46 | disposition left against medical advice (07) ==
LOC: ER 07:46
DX: R10.84 Generalized abdominal pain (principal); R11.10 Vomiting, unspecified; R19.7 Diarrhea, unspecified; Z79.899 Other long term (current) drug therapy
CPT/HCPCS: 36415; 74018; 80053; 83690; 85025; 96374; 96375; 99284; J1200; J2765; J7030

== ENCOUNTER 2024-12-03 21:00 | Emergency (ER) | payer BC ==
[~2024-12-03] VITALS: Ht 175.3 cm; Wt 81.8 kg
[~2024-12-03 21:00] MED LIST changes: +PROC-8 PO
[2024-12-03 21:39] LABS: BASOPHILS # (AUTO) 0.1 X10'3 (0-0.2); BASOPHILS % (AUTO) 0.7 % (0-1); EOSINOPHILS # (AUTO) 0.2 X10'3 (0-0.9); EOSINOPHILS % (AUTO) 3.2 % (0-6); HEMATOCRIT 42.9 % (42.0-52.0); HEMOGLOBIN 14.9 g/dl (14.0-17.9); LYMPHOCYTES # (AUTO) 2.3 X10'3 (1.1-4.8); LYMPHOCYTES % (AUTO) 33.5 % (21-51); MEAN CORPUSCULAR HEMOGLOBIN 31.2 PG (27.0-31.0); MEAN CORPUSCULAR HGB CONC 34.7 g/dL (33.0-36.5); MEAN CORPUSCULAR VOLUME 89.9 FL (78-98); MONOCYTES # (AUTO) 0.4 X10'3 (0-0.9); MONOCYTES % (AUTO) 6.1 % (2-12); NEUTROPHILS # (AUTO) 3.8 X10'3 (1.8-7.7); NEUTROPHILS % (AUTO) 56.5 % (42-75); PLATELET COUNT 255 X10'3 (140-440); RED BLOOD COUNT 4.77 X10'6 (4.70-6.10); RED CELL DISTRIBUTION WIDTH 12.9 % (11.5-14.5); WHITE BLOOD COUNT 6.8 X10'3 (4.5-11.0)
[2024-12-03 21:45] LABS: BILIRUBIN,URINE NEGATIVE (Neg); CLARITY,URINE CLEAR (Clear); COLOR,URINE YELLOW (Yellow); GLUCOSE, URINE NEGATIVE (Neg); KETONES,URINE NEGATIVE (Neg); LEUKOCYTE ESTERASE ,URINE NEGATIVE (Neg); NITRITES, URINE NEGATIVE (Neg); OCCULT BLOOD,URINE NEGATIVE (Neg); PROTEIN,URINE NEGATIVE (Neg); UROBILINOGEN,URINE 0.2 E.U/dL (0.2-1.0)
[2024-12-03 21:48] LABS: UA COLLECTION TYPE CLN CATCH MIDSTREAM
[2024-12-03 21:55] LABS: ALANINE AMINOTRANSFERASE 18 U/L (12-78); ALBUMIN 4.5 G/DL (3.4-5.0); ALBUMIN/GLOBULIN RATIO 1.2 (1.1-1.5); ALKALINE PHOSPHATASE 118 IU/L (46-116); ANION GAP 11 (8-16); ASPARTATE AMINO TRANSFERASE 12 U/L (10-37); BILIRUBIN,TOTAL 0.4 MG/DL (0.1-1.0); BLOOD UREA NITROGEN 6 MG/DL (7-18); BUN/CREATININE RATIO 6.6 (10.0-20.0); CALCIUM 8.7 MG/DL (8.5-10.1); CHLORIDE 102 MMOL/L (99-107); CREATININE 0.91 MG/DL (0.60-1.10); GLUCOSE 103 MG/DL (70-104); LIPASE 22 U/L (16-77); POTASSIUM 3.6 MMOL/L (3.5-5.1); SODIUM 141 MMOL/L (135-145); TOTAL CARBON DIOXIDE 27.8 MMOL/L (24-32); TOTAL PROTEIN 8.2 G/DL (6.4-8.2); eCRCL 113 ML/MIN; eGFR > 90 ML/MIN
[2024-12-03] MEDS: ketorolac trometh 15mg/ml vial 15 MG/ML ML IM ONE (23:10)
[2024-12-03 23:50] VITALS: BP 150/111; PULSE 74; RESP 16; TEMP 98.5; O2SAT 100
== END 2024-12-03 23:57 | disposition home or self-care (01) ==
LOC: ER 21:01
DX: R10.9 Unspecified abdominal pain (principal); R07.89 Other chest pain
CPT/HCPCS: 36415; 71045; 80053; 81003; 83690; 85025; 93005; 96372; 99285; J1885

== ENCOUNTER 2025-03-12 15:05 | Emergency (ER) | payer BC ==
[~2025-03-12] VITALS: Ht 175.3 cm; Wt 78.0 kg
[~2025-03-12 15:05] MED LIST changes: +ACET-1008 PO; +FOLI1TAB27 PO; +NICO-631 TD; -NO HOME MEDS; -ONDA-245 PO; -OXYC-138 PO; +PANT40TA54 PO; -PER5325T PO; -PROC-8 PO
[2025-03-12 15:27] VITALS: TEMP 98.6
[2025-03-12 16:07] LABS: BASOPHILS # (AUTO) 0.1 X10'3 (0-0.2); BASOPHILS % (AUTO) 0.5 % (0-1); EOSINOPHILS % (AUTO) 0.3 % (0-6); HEMATOCRIT 41.6 % (42.0-52.0); HEMOGLOBIN 14.2 g/dl (14.0-17.9); LYMPHOCYTES # (AUTO) 1.8 X10'3 (1.1-4.8); MEAN CORPUSCULAR HEMOGLOBIN 29.9 PG (27.0-31.0); MEAN CORPUSCULAR HGB CONC 34.1 g/dL (33.0-36.5); MEAN CORPUSCULAR VOLUME 87.6 FL (78-98); MEAN PLATELET VOLUME 8.3 FL (7.4-10.4); MONOCYTES # (AUTO) 0.5 X10'3 (0-0.9); MONOCYTES % (AUTO) 4.8 % (2-12); NEUTROPHILS # (AUTO) 8.3 X10'3 (1.8-7.7); NEUTROPHILS % (AUTO) 77.4 % (42-75); PLATELET COUNT 303 X10'3 (140-440); RED BLOOD COUNT 4.75 X10'6 (4.70-6.10); WHITE BLOOD COUNT 10.8 X10'3 (4.5-11.0)
[2025-03-12 16:18] LABS: ALANINE AMINOTRANSFERASE 17 U/L (12-78); ALBUMIN 4.3 G/DL (3.4-5.0); ALBUMIN/GLOBULIN RATIO 1.2 (1.1-1.5); ALKALINE PHOSPHATASE 111 IU/L (46-116); ANION GAP 9 (8-16); ASPARTATE AMINO TRANSFERASE 14 U/L (10-37); BILIRUBIN,TOTAL 0.6 MG/DL (0.1-1.0); BLOOD UREA NITROGEN 4 MG/DL (7-18); BUN/CREATININE RATIO 4.7 (10.0-20.0); CALCIUM 9.5 MG/DL (8.5-10.1); CHLORIDE 104 MMOL/L (99-107); CREATININE 0.85 MG/DL (0.60-1.10); GLUCOSE 126 MG/DL (70-104); LIPASE 23 U/L (16-77); POTASSIUM 4.2 MMOL/L (3.5-5.1); SODIUM 139 MMOL/L (135-145); TOTAL CARBON DIOXIDE 25.6 MMOL/L (24-32); TOTAL PROTEIN 7.9 G/DL (6.4-8.2); eCRCL 121 ML/MIN; eGFR > 90 ML/MIN
--- NOTE | 2025-03-12 16:29 | Physician Documentation ---
History of Present Illness Chief Complaint: Abdominal Pain Stated Complaint: UPPER ABD PAIN Primary Medical Doctor: None HPI This is a 34-year-old male who reports history of chronic pancreatitis who presents today with epigastric abdominal pain with nausea and vomiting has been present for some time though was becomes unbearable with current home medications, patient reports nausea and vomiting is controlled by Zofran though pain is not controlled. Patient reports he is awaiting specialists appointment at [facility] next week. Medication Reconciliation Allergies: Coded Allergies: No Known Allergies (Unverified , 03/12/25) Scheduled Folic Acid* (Folic Acid*), 1 MG PO DAILY Naloxone HCl (Narcan), 1 SPRAYS BOTHNARES ONCE Nicotine 14 MG Patch* (Habitrol 14 MG Patch*), 1 PATCH TD DAILY Pantoprazole Sodium (Pantoprazole Sodium), 40 MG PO BKF Scheduled PRN Acetaminophen (Tylenol), 1 TAB PO Q8H PRN for mild pain 1-3, (Reported) Hydrocodone Bit/Acetaminophen 5/325 MG ([place] 5/325 MG), 1 TAB PO Q6H PRN for pain ONDANSETRON ODT 4mg tablet (Ondansetron Odt), 1 TABLET PO Q6H PRN for nausea/vomiting ONDANSETRON ODT 4mg tablet (Ondansetron Odt), 1 TAB PO Q6H PRN PRN for nausea/vomiting Past Medical History Past Medical History: *GI/HEPATOBILIARY*, Pancreatitis Past Surgical History: no surgical history Patient History: FH: CAD (coronary artery disease) Alcohol Use: Other Lives In: Home Review of Systems ROS Upper abdominal pain as stated above in the HPI, otherwise all systems are reviewed and negative. Physical Exam Vital Signs: Temperature: 98.6, Source: Temporal, Heart Rate: 89, Respiratory Rate: 18, BP: 137/75, Pulse Oximetry: 99, Weight: 78.050 Physical Exam VITALS: Reviewed and as above. GENERAL: Alert, nontoxic appearing, no apparent distress. RESPIRATORY: No increased work of breathing, no respiratory distress, speaking in full clear sentences, lung sounds clear in all clancy CV: Regular rate and rhythm no murmur BACK: No CVA tenderness GI: Upper abdominal tenderness to palpation. Soft, nondistended, no rebound, no guarding, bowel sounds present SKIN: No ecchymosis Progress Progress Note 2156 I reassessed the patient's pain, patient continues to experience 8/10 pain despite Toradol and morphine IV. 2258: Reassess the patient's pain, patient reports adequate decrease in pain Results/Orders Results/Orders Vital Signs 03/12/25 15:27 Temp 98.6 Pulse 89 Resp 18 B/P (MAP) 137/75 Pulse Ox 99 Laboratory Tests Test 03/12/25 15:39 White Blood Count 10.8 Red Blood Count 4.75 Hemoglobin 14.2 Hematocrit 41.6 L Mean Corpuscular Volume 87.6 Mean Corpuscular Hemoglobin 29.9 Mean Corpuscular Hemoglobin Concent 34.1 Red Cell Distribution Width 13.0 Platelet Count 303 Mean Platelet Volume 8.3 Neutrophils (%) (Auto) 77.4 H Lymphocytes (%) (Auto) 17.0 L Monocytes (%) (Auto) 4.8 Eosinophils (%) (Auto) 0.3 Basophils (%) (Auto) 0.5 Neutrophils # (Auto) 8.3 H Lymphocytes # (Auto) 1.8 Monocytes # (Auto) 0.5 Eosinophils # (Auto) 0.0 Basophils # (Auto) 0.1 CBC Comment Sodium Level 139 Potassium Level 4.2 Chloride Level 104 Carbon Dioxide Level 25.6 Anion Gap 9 Blood Urea Nitrogen 4 L Creatinine 0.85 Estimated GFR/1.73 m2 > 90 BUN/Creatinine Ratio 4.7 L Glucose Level 126 H Calcium Level 9.5 Total Bilirubin 0.6 Aspartate Amino Transf (AST/SGOT) 14 Alanine Aminotransferase (ALT/SGPT) 17 Alkaline Phosphatase 111 Total Protein 7.9 Albumin 4.3 Globulin 3.6 Albumin/Globulin Ratio 1.2 Lipase 23 Chemistry Comments Medical Decision Making Findings This 34-year-old male with known history of chronic pancreatitis presents requesting pain management due to running out of pain medications at home that he was using to manage his chronic pancreatitis while waiting specialist appointment at [facility], pain is consistent with his previous pancreatitis pain. Patient reported that typically when he has pain episodes he uses prescribed [place] however he is now out of prescribed [place]. It is reassuring pain is limited to upper abdomen consistent with chronic pancreatitis along with lab work without evidence of infection or metabolic derangement and with shared decision-making with patient requesting no radiation exposure as he has a scheduled CT scan next week further imaging not indicated at this time. Patient required multiple doses of non opioid and opioid medications to achieve pain control however after medication patient did report adequate pain control. Patient offered the option of admission for pain control however with shared decision-making patient has a preference for discharge home. Remainder of physical exam was benign and patient is otherwise well-appearing, vital signs stable and patient is appropriate for outpatient follow up. Patient provided careful return to care precautions which he verbalized understanding of. I have discussed with the patient the risks of addiction and overdose associated with use of opioids, including the increased risk of addiction to an opioid for an individual who is suffering from both mental and substance abuse disorders. I have discussed with the patient the danger of taking an opioid with a benzodiazepine, alcohol, or another central nervous system depressant. Cures report run and checked prior to narcotic prescribing. Differential Dx:Considerations: Include: Aortic dissection, Appendicitis, Bowel obstruction, Cholangitis, Cholelithasis, Diverticular disease, Gastritis/PUD, Gastroenteritis, GI hemorrhage, Inflammatory BD, Pancreatitis, Urolithiasis Departure Disposition: 01 HOME / SELF CARE / HOMELESS Impression: Primary Impression: Abdominal pain Qualified Codes: R10.13 - Epigastric pain Condition: Improved Additional Instructions: Follow up as scheduled with your specialist next week, please also follow up with your primary care provider in the next few days. Please follow up with your primary care provider in the next few days. Please return to the emergency department for any new or worsening concerning symptoms. You may use erom-mcb-viaaash ibuprofen and or Tylenol as needed for pain as directed by the [id number]-[id number] packaging. For breakthrough pain you may use the prescribed [place], be aware that the [place] also contains the same active ingredient as Tylenol, so do not take more than the recommended amount of Tylenol as directed on the [id number]-[id number] packaging. You have been prescribed an opioid medication, there are risks of addiction and overdose associated with the use of opioids. The risk of addiction to an opioid for increases for those suffering both from mental health and substance use disorders. The use of an opioid while taking other central nervous system depressants including but not limited to benzodiazepines or alcohol, or other opioids increases the risk of serious side effects that can include overdose or respiratory depression that can lead to serious injury or . Referrals: NO PRIMARY CARE PROVIDER (PCP) Prescriptions Naloxone HCl (Narcan) 4 Mg/Actuation Reagan 1 SPRAYS BOTHNARES ONCE for 1 Day, #1 EA 0 Refills Prov: LEVI CRUZP 03/12/25 Hydrocodone Bit/Acetaminophen 5/325 MG ([place] 5/325 MG) 5 Mg/325 Mg Tablet 1 TAB PO Q6H PRN for pain for 3 Days, #12 TAB Prov: LEVI CRUZ [facility] 03/12/25 ONDANSETRON ODT 4mg tablet (ONDANSETRON ODT) 4 Mg Tab.rapdis 1 TAB PO Q6H PRN PRN for nausea/vomiting for 4 Days, #16 TAB 0 Refills Prov: LEVI CRUZ [facility] 03/12/25 Education Educated: Patient Educated regarding: diagnosis, treatment, prognosis, need for follow up Additional Comment Medical Screen Exam This is a 34-year-old male who reports history of chronic pancreatitis who presents today with epigastric abdominal pain with nausea and vomiting has been present for some time though was becomes unbearable with current home medications, patient reports nausea and vomiting is controlled by Zofran though pain is not controlled. Patient reports he is awaiting specialists referral at [facility]. VITALS: Reviewed and as above. GENERAL: Alert, nontoxic appearing, no apparent distress. RESPIRATORY: No increased work of breathing, no respiratory distress, speaking in full clear sentences MSE performed in triage and patient returned to ED lobby by nursing staff to await available ED room The note accurately reflects work and decisions made by me.YO Dillon 03/12/25 16:29 Signature Scribe Signature: No scribe Attestation: The note accurately reflects work and decisions made by me.YO Dillon 03/13/25 01:36 LEVI CRUZ [facility] Mar 12, 2025 16:29
[2025-03-12 19:24] LABS: BILIRUBIN,URINE NEGATIVE (Neg); CLARITY,URINE CLEAR (Clear); COLOR,URINE STRAW (Yellow); GLUCOSE, URINE NEGATIVE (Neg); KETONES,URINE NEGATIVE (Neg); LEUKOCYTE ESTERASE ,URINE NEGATIVE (Neg); NITRITES, URINE NEGATIVE (Neg); OCCULT BLOOD,URINE NEGATIVE (Neg); PROTEIN,URINE NEGATIVE (Neg); UROBILINOGEN,URINE 0.2 E.U/dL (0.2-1.0)
[2025-03-12 19:26] LABS: UA COLLECTION TYPE CLN CATCH MIDSTREAM
[2025-03-12] MEDS: ketorolac trometh 15mg/ml vial 15 MG/ML ML IV ONE (20:04)
[2025-03-12] MEDS: ondansetron/PF 4mg/2ml inj IV ONE (20:04)
[2025-03-12] MEDS: morphine 4 MG/ML inj SYRINge IV ONE ×2 (21:30→22:37)
[2025-03-12] MEDS: acetaminophen 325mg tablet PO ONE (22:39)
[2025-03-12] MEDS ORDERED: ONDA-243 PO (23:13)
[2025-03-12] MEDS ORDERED: HYDR-3965 PO (23:13)
[2025-03-12] MEDS ORDERED: oxyCODONE SR 10mg (sust. release) tab PO ONE (23:15)
[2025-03-12] MEDS ORDERED: NALO4SPR BOTHNARES (23:20)
[2025-03-12 23:30] VITALS: BP 114/84; PULSE 80; O2SAT 98
[2025-03-12 23:49] VITALS: RESP 18
[2025-03-12] MEDS: HYDROcodone/acetaminophen 5mg/325mg tablet PO ONE (23:49)
== END 2025-03-12 23:57 | disposition home or self-care (01) ==
LOC: ER 15:06
DX: R10.13 Epigastric pain (principal); R11.2 Nausea with vomiting, unspecified; Z79.899 Other long term (current) drug therapy
CPT/HCPCS: 36415; 80053; 81003; 83690; 85025; 96374; 96375; 96376; 99284; A6258; J1885; J2270; J2405; J7030

== ENCOUNTER 2025-03-18 14:25 | Observation (INO) | payer BC ==
[~2025-03-18] VITALS: Ht 175.3 cm; Wt 78.8 kg
[~2025-03-18 14:25] MED LIST changes: +NALO4SPR BOTHNARES
--- NOTE | 2025-03-18 15:01 | Physician Documentation ---
History of Present Illness Chief Complaint: Abdominal Pain Stated Complaint: ABDOMINAL PAIN Primary Medical Doctor: None HPI This is a 34-year-old male with history of chronic pancreatitis who presents with worsening epigastric pain and dark oily stools, patient reports all symptoms are consistent with past pancreatitis flare-ups. Patient reports he has a appointment with a specialist at [facility] [place] on Tuesday though is unable to tolerate the pain at home. Patient was seen by myself several days prior and prescribed [place] for management of breakthrough chronic pancreatitis pain, however patient is unable to tolerate pain with these medications at home. History as above. Patient was well known to our emergency room and suffers from chronic abdominal pain secondary to pancreatitis. Was seen here a few days ago and given some [place] was however feels that symptoms have just progressed to the point were it is intolerable. Last dose of pain medication last night. Medication Reconciliation Allergies: Coded Allergies: No Known Allergies (Unverified , 03/12/25) Scheduled Folic Acid* (Folic Acid*), 1 MG PO DAILY Naloxone HCl (Narcan), 1 SPRAYS BOTHNARES ONCE Nicotine 14 MG Patch* (Habitrol 14 MG Patch*), 1 PATCH TD DAILY Pantoprazole Sodium (Pantoprazole Sodium), 40 MG PO BKF Scheduled PRN Acetaminophen (Tylenol), 1 TAB PO Q8H PRN for mild pain 1-3, (Reported) ONDANSETRON ODT 4mg tablet (Ondansetron Odt), 1 TABLET PO Q6H PRN for nausea/vomiting ONDANSETRON ODT 4mg tablet (Ondansetron Odt), 1 TAB PO Q6H PRN PRN for nausea/vomiting Discontinued Medications Hydrocodone Bit/Acetaminophen 5/325 MG ([place] 5/325 MG), 1 TAB PO Q6H PRN for pain Discontinued Reason: Auto Discontinued Past Medical History Past Medical History: *GI/HEPATOBILIARY*, Pancreatitis Past Surgical History: no surgical history Patient History: FH: CAD (coronary artery disease) Alcohol Use: Other Lives In: Home Review of Systems ROS All review of systems negative except as per HPI Physical Exam Vital Signs: Temperature: 98.9, Source: Temporal, Heart Rate: 111, Respiratory Rate: 18, BP: 157/98, Pulse Oximetry: 100, Weight: 78.800 Oxygen Flow Rate: 0 Physical Exam General: Patient is awake, alert, oriented x4 in no acute distress Head: Normocephalic and atraumatic. Eyes: Conjunctival normal. EOMI. PERRL. ENT: Mucous membranes moist. Neck: Supple, trachea is midline. Chest: Clear to auscultation bilaterally without rales, rhonchi, or wheezes. There is no accessory muscle use or retractions. Cardiac: RRR without murmurs, gallops, or rubs. Abd: Soft, nondistended, mild diffuse tenderness without peritonitis Progress Results/Orders Results/Orders Completed Orders - LEVI CRUZ Ketorolac Trometh 15mg/Ml Vial (Toradol (03/18/25 14:55) Vital Signs 03/18/25 14:32 Temp 98.9 Pulse 111 Resp 18 B/P (MAP) 157/98 Pulse Ox 100 O2 Flow Rate 0 Medical Decision Making Findings Patient presented to the emergency room with chronic abdominal pain worsening him symptoms. Patient is awaiting specialist referral along with pain management. Despite outpatient pain medication IV pain medications in the emergency room but continues to have significant pain therefore we will admit for intractable abdominal pain Departure Admitted to Inpatient Unit: yes, to hospitalist Impression: Primary Impression: Intractable abdominal pain Condition: Guarded Referrals: NO PRIMARY CARE PROVIDER (PCP) Signature Scribe Signature: No scribe Attestation: The note accurately reflects work and decisions made by me.Hema Esposito MD 03/18/25 21:05 LEVI CRUZ Mar 18, 2025 15:01 HEMA ESPOSITO MD Mar 18, 2025 19:52
[2025-03-18 15:32] LABS: BASOPHILS % (AUTO) 0.5 % (0-1); EOSINOPHILS # (AUTO) 0.1 X10'3 (0-0.9); EOSINOPHILS % (AUTO) 0.8 % (0-6); HEMOGLOBIN 14.2 g/dl (14.0-17.9); LYMPHOCYTES # (AUTO) 1.7 X10'3 (1.1-4.8); MEAN CORPUSCULAR HEMOGLOBIN 30.4 PG (27.0-31.0); MEAN CORPUSCULAR HGB CONC 34.6 g/dL (33.0-36.5); MEAN CORPUSCULAR VOLUME 87.9 FL (78-98); MEAN PLATELET VOLUME 8.3 FL (7.4-10.4); MONOCYTES # (AUTO) 0.4 X10'3 (0-0.9); MONOCYTES % (AUTO) 6.4 % (2-12); NEUTROPHILS # (AUTO) 4.5 X10'3 (1.8-7.7); NEUTROPHILS % (AUTO) 67.3 % (42-75); PLATELET COUNT 295 X10'3 (140-440); RED BLOOD COUNT 4.67 X10'6 (4.70-6.10); RED CELL DISTRIBUTION WIDTH 13.1 % (11.5-14.5); WHITE BLOOD COUNT 6.7 X10'3 (4.5-11.0)
[2025-03-18 15:48] LABS: ALANINE AMINOTRANSFERASE 17 U/L (12-78); ALBUMIN 4.3 G/DL (3.4-5.0); ALBUMIN/GLOBULIN RATIO 1.3 (1.1-1.5); ALKALINE PHOSPHATASE 101 IU/L (46-116); ANION GAP 7 (8-16); ASPARTATE AMINO TRANSFERASE 15 U/L (10-37); BILIRUBIN,TOTAL 0.4 MG/DL (0.1-1.0); BLOOD UREA NITROGEN 5 MG/DL (7-18); BUN/CREATININE RATIO 5.4 (10.0-20.0); CHLORIDE 103 MMOL/L (99-107); CREATININE 0.92 MG/DL (0.60-1.10); GLUCOSE 113 MG/DL (70-104); LIPASE 24 U/L (16-77); POTASSIUM 4.1 MMOL/L (3.5-5.1); SODIUM 138 MMOL/L (135-145); TOTAL PROTEIN 7.6 G/DL (6.4-8.2); eCRCL 112 ML/MIN; eGFR > 90 ML/MIN
[2025-03-18] MEDS: ketorolac trometh 15mg/ml vial 15 MG/ML ML IM ONE (17:15)
[2025-03-18] MEDS: ondansetron/PF 4mg/2ml inj IV ONE (20:19)
[2025-03-18] MEDS: normal saline 1000ml 1,000 ML IV ONE ×2 (20:19→23:06)
[2025-03-18] MEDS: acetaminophen 1,000mg/100ml IV 100 ML IV ONE (20:19)
[2025-03-18] MEDS: morphine 4 MG/ML inj SYRINge IV ONE (20:20)
[2025-03-18] MEDS: ketorolac trometh 15mg/ml vial 15 MG/ML ML IV ONE (20:20)
[2025-03-18] MEDS ORDERED: magnesium Cl slow-release 64mg tablet PO PRN (21:40)
[2025-03-18] MEDS ORDERED: potassium Cl 20 mEq SR tablet PO PRN ×2 (21:40)
[2025-03-18] MEDS ORDERED: HYDROmorphone inj. 0.5 MG/0.5 ML DISP.SYRIN IV PRN (21:40)
[2025-03-18] MEDS ORDERED: mag hydrox/Alum hydrox/simeth 30ml oral suspension PO PRN (21:40)
[2025-03-18] MEDS ORDERED: magnesium sulf-water 4G/100mL 100 ML IV PRN (21:40)
[2025-03-18] MEDS ORDERED: magnesium hydroxide 30ml (MOM) UD suspension PO PRN (21:40)
[2025-03-18] MEDS ORDERED: morphine 2 MG/ML inj. syringe IV PRN (21:40)
[2025-03-18] MEDS ORDERED: acetaminophen 325mg tablet PO PRN ×2 (21:40)
[2025-03-18] MEDS ORDERED: ondansetron/PF 4mg/2ml inj IV PRN (21:40)
[2025-03-18] MEDS ORDERED: potassium Cl 40MEQ/1/2NS 520ml 520 ML IV PRN (21:40)
[2025-03-18] MEDS ORDERED: magnesium sulf-water 2g/50mL 50 ML IV PRN (21:40)
[2025-03-18] MEDS ORDERED: HYDROmorphone/PF 0.2 MG/ML SYRINGE IV PRN (21:40)
--- NOTE | 2025-03-18 21:47 | HISTORY AND PHYSICAL-Residence ---
History & Physical Providers to CC Resident Creating Document: NAHUM GLOVER RES ~ History of Present Illness Primary Medical Doctor: None Reason for Admit\Complaint: INTRACTABLE ABDOMINAL PAIN History of Present Illness 34-year-old male with history of chronic pancreatitis presented to the ER with pain abdomen. Few reports that abdominal pain is more over the epigastric reason, rated 9/10, squeezing type, radiated to the the back. He do reports abdominal distention for the past one day. Endorses vomiting for the couple of days, 2-3 episodes. He complaint of loose stools, 2-3 associated with black, thick oily stools which was floating when he tried to flush the toilet, from the past couple of this. He denied nausea, hematemesis, hematochezia, melena, jaundice. He was not a chronic alcoholic but he used to take a few drinks six months back. He is sober for the past six months. He reports family history of hypercholesterolemia , hypertriglyceridemia for father. he has a appointment with a specialist at [facility] on Tuesday though is unable to tolerate the pain at home. Patient was seen here in ER for multiple times, frequent visitor to the ER. Discuss the code status with the patient that patient wants to be full code Allergies: Coded Allergies: No Known Allergies (Unverified , 03/12/25) Home Medications Home Medications Active Narcan (Naloxone HCl) 4 Mg/Actuation [place] 1 Sprays BOTHNARES ONCE 1 Days Ondansetron Odt (Ondansetron HCl) 4 Mg Tab.rapdis 1 Tab PO Q6H PRN PRN 4 Days Pantoprazole Sodium 40 Mg Tablet.dr 40 Mg PO BKF 10 Days Folic Acid* (Folic Acid) Y Tab 1 Mg PO DAILY 30 Days Habitrol 14 MG Patch* (Nicotine) 1 Each Patch.td24 1 Patch TD DAILY 30 Days Ondansetron Odt (Ondansetron HCl) 4 Mg Tab.rapdis 1 Tablet PO Q6H PRN Reported Tylenol (Acetaminophen) 325 Mg Tablet 1 Tab PO Q8H PRN 10 Days Past Medical History Past Medical History Chronic pancreatitis Past Surgical History Surgical History Comment Noncontributory Family History Family History: FH: CAD (coronary artery disease) Past Social History Smoking: Non-Smoker Alcohol Use: Sober Drug Use: None Lives In: Home ROS All Other Systems: Reviewed and Negative ROS Reviewed in full and negative except positive pertinents as an HPI. Exam Vitals: Vital Signs Date Time Temp Pulse Resp B/P (MAP) Pulse Ox O2 Delivery O2 Flow Rate FiO2 03/18/25 20:20 18 03/18/25 19:47 03/18/25 19:25 99.0 106 99 03/18/25 17:17 0 General: General: Patient is awake, alert, oriented x4 in no acute distress Head: Normocephalic and atraumatic. No icterus, cyanosis. No JVD and carotid upstroke Eyes: Conjunctival normal. EOMI. PERRL. ENT: Mucous membranes moist. Neck: Supple, trachea is midline. Respiratory system: Clear to auscultation bilaterally without rales, rhonchi, or wheezes. There is no accessory muscle use or retractions. Cardiovascular system: RRR without murmurs, gallops, or rubs. Gastrointestinal: Soft, mildly distended. diffuse tenderness. No guarding, rigidity, rebound tenderness Nervous System: No functional neurological deficits Psychiatric: Mood and affect is normal Extremities: No clubbing come out on pedal edema, no rash Skin: Warm and dry Diagnostic Data Last Recorded Lab Results: 03/18/25 1515 03/18/25 1515 Advance Care Planning Advanced Care planning: Add on additional 30 min Additional Plan Intractable abdominal pain secondary to acute on chronic pancreatitis Blood pressure initially elevated in 140s, heart rate in 09/26/2005 and then blood pressure and heart rate trended down to 110s and 60s. CBC is normal and CMP is normal Ordered CT abdomen on follow up with the results for possible pseudocyst of pancreas On multivitamin, vitamin-D and E vitamin ADEK [place] 45529 IU NPO Ordered 1 L of normal saline and IV normal saline at the rate of 100 mL/hour Received with the 30 mg of ketorolac, 0.5 mg of Dilaudid, Zofran 4 mg, morphine 6 mg, acetaminophen IV, Code status: Full code DVT prophylaxis: Heparin subQ Diet: NPO Analgesia: Morphine, Tylenol PT: Ordered Prognosis: Guarded Julia Glover resident Date of Service: Mar 18, 2025 Billing Provider: KENDAL ELLIOTT MD, VENKATESH, RES Mar 18, 2025 21:47
[2025-03-18] MEDS: HYDROmorphone inj. 0.5 MG/0.5 ML DISP.SYRIN IV ONE (22:17)
[2025-03-18] MEDS: normal saline 1000ml 1,000 ML IV SCH (22:27)
[2025-03-18 23:25] LABS: BILIRUBIN,URINE NEGATIVE (Neg); CLARITY,URINE CLEAR (Clear); COLOR,URINE YELLOW (Yellow); GLUCOSE, URINE NEGATIVE (Neg); KETONES,URINE NEGATIVE (Neg); LEUKOCYTE ESTERASE ,URINE NEGATIVE (Neg); NITRITES, URINE NEGATIVE (Neg); OCCULT BLOOD,URINE NEGATIVE (Neg); PH,URINE 6.5 (4.8-8.0); PROTEIN,URINE NEGATIVE (Neg); UROBILINOGEN,URINE 0.2 E.U/dL (0.2-1.0)
[2025-03-18 23:26] LABS: UA COLLECTION TYPE URINAL
[2025-03-18] MEDS ORDERED: morphine/NS 1 mg/ml 50ml PCA 50 ML IV STA (23:28)
[2025-03-18] MEDS: morphine 2 MG/ML inj. syringe IV PRN (23:49)
[2025-03-19] VITALS (7 sets, daily range): BP systolic 119–145; BP diastolic 67–92; PULSE 51–69; RESP 14–18; TEMP 97.9–98.2; O2SAT 98–100
[2025-03-19] MEDS ORDERED: morphine/NS 1 mg/ml 50ml PCA 50 ML IV STA (01:05)
--- NOTE | 2025-03-19 01:27 | RADIOLOGY REPORT ---
CT SCAN ABDOMEN AND PELVIS WITHOUT CONTRAST CLINICAL HISTORY: Intractable abdominal pain TECHNIQUE: Helical axial images are obtained from the lung bases through the pelvis without oral cont rast. No intravenous contrast was administered. Coronal and sagittal reformatted images were generate d from thin section reconstructions. One or more of the following radiation dose reduction techniques were used for this examination: automated exposure control, adjustment of the mA and/or kV according to patient size, use of iterative reconstruction technique. COMPARISON: CT CT ABDOMEN PELVIS W/ IV CONTRAST on DOS: 12/10/24, CT CT ABDOMEN PELVIS on DOS: 02/24/24 FINDINGS: LOWER THORAX: Imaged lung bases are grossly clear. ABDOMEN AND PELVIS: Evaluation of visceral and vascular structures is limited due to lack of contrast administration. As visualized, the unenhanced liver, spleen, pancreas and adrenals appear grossly unremarkable. No si zable, radiopaque cholelithiasis or biliary ductal dilatation identified. No hydroureteronephrosis or sizable, obstructing urinary tract calculi identified. No evidence of abdominal aortic aneurysm. No evidence of small-bowel obstruction. Normal caliber appendix. No free intraperitoneal air or flui d identified. Symmetrical thickening of the urinary bladder. No sizable bladder calculus. No destructive osseous lesions identified. IMPRESSION: No bowel obstruction, free intraperitoneal air/fluid or sizable inflammatory collections identified o n this noncontrast examination. Bladder wall thickening which may be in part due to underdistention. Correlate to exclude UTI/cystit is.
[2025-03-19] MEDS ORDERED: morphine 2 MG/ML inj. syringe IV PRN (01:55)
[2025-03-19] MEDS: HYDROcodone/acetaminophen 10/325mg tab PO PRN (02:21)
[2025-03-19] MEDS: heparin, porcine 5000 units/ml vial SQ SCH (02:23)
[2025-03-19] MEDS: PCA WASTE DOCUMENTATION 1 MG ML MC SCH (02:25)
[2025-03-19] MEDS: morphine 2 MG/ML inj. syringe IV PRN (04:05)
[2025-03-19 05:38] LABS: BASOPHILS % (AUTO) 0.3 % (0-1); EOSINOPHILS # (AUTO) 0.1 X10'3 (0-0.9); EOSINOPHILS % (AUTO) 0.8 % (0-6); HEMATOCRIT 33.8 % (42.0-52.0); HEMOGLOBIN 11.6 g/dl (14.0-17.9); LYMPHOCYTES # (AUTO) 3.3 X10'3 (1.1-4.8); LYMPHOCYTES % (AUTO) 37.2 % (21-51); MEAN CORPUSCULAR HEMOGLOBIN 30.3 PG (27.0-31.0); MEAN CORPUSCULAR HGB CONC 34.3 g/dL (33.0-36.5); MEAN CORPUSCULAR VOLUME 88.3 FL (78-98); MEAN PLATELET VOLUME 8.3 FL (7.4-10.4); MONOCYTES # (AUTO) 0.6 X10'3 (0-0.9); MONOCYTES % (AUTO) 6.2 % (2-12); NEUTROPHILS % (AUTO) 55.5 % (42-75); PLATELET COUNT 235 X10'3 (140-440); RED BLOOD COUNT 3.83 X10'6 (4.70-6.10); RED CELL DISTRIBUTION WIDTH 12.9 % (11.5-14.5)
[2025-03-19 06:17] LABS: ALANINE AMINOTRANSFERASE 15 U/L (12-78); ALBUMIN 3.3 G/DL (3.4-5.0); ALBUMIN/GLOBULIN RATIO 1.3 (1.1-1.5); ALKALINE PHOSPHATASE 75 IU/L (46-116); ANION GAP 9 (8-16); ASPARTATE AMINO TRANSFERASE 13 U/L (10-37); BILIRUBIN,TOTAL 0.5 MG/DL (0.1-1.0); BLOOD UREA NITROGEN 4 MG/DL (7-18); BUN/CREATININE RATIO 5.3 (10.0-20.0); CALCIUM 7.9 MG/DL (8.5-10.1); CHLORIDE 108 MMOL/L (99-107); CHOL/HDL RATIO 3.3 (0.00-4.99); CHOLESTEROL 121 MG/DL (0-200); CREATININE 0.76 MG/DL (0.60-1.10); GLUCOSE 93 MG/DL (70-104); HDL CHOLESTEROL 37 MG/DL (35-60); LDL CHOLESTEROL 69 MG/DL (50-100); MAGNESIUM 1.8 MG/DL (1.5-2.4); POTASSIUM 3.5 MMOL/L (3.5-5.1); SODIUM 142 MMOL/L (135-145); TOTAL CARBON DIOXIDE 24.7 MMOL/L (24-32); TOTAL PROTEIN 5.8 G/DL (6.4-8.2); TRIGLYCERIDES 45 MG/DL (20-135); eCRCL 136 ML/MIN; eGFR > 90 ML/MIN
[2025-03-19] MEDS ORDERED: LIPASE/PROTEASE/AMYLASE 16,800 UNIT CAPSULE.DR PO SCH (07:30)
[2025-03-19] MEDS: K and/or MAG REPLACEMENT MC SCH (08:00)
[2025-03-19] MEDS: docusate sod 100mg capsule PO SCH (08:00)
[2025-03-19] MEDS: multivitamins, therapeutics tablet PO SCH (09:22)
[2025-03-19] MEDS ORDERED: LIPASE/PROTEASE/AMYLASE 4,200 unit CAPSULE.DR PO SCH (09:38)
[2025-03-19] MEDS: LIPASE/PROTEASE/AMYLASE 10,500 units CAPSULE.DR PO SCH (09:40)
[2025-03-19] MEDS: vitamin E 400 unit capsule PO SCH (12:17)
[2025-03-19] MEDS: ergocalciferol (vit D2) capsule 50,000 UNITS (1,250mcg) CAPSULE PO SCH (12:18)
[2025-03-19] MEDS: LIPASE/PROTEASE/AMYLASE 4,200 unit CAPSULE.DR PO SCH (12:30)
[2025-03-19 14:52] LABS: BASOPHILS % (AUTO) 0.6 % (0-1); EOSINOPHILS % (AUTO) 0.6 % (0-6); HEMATOCRIT 37.9 % (42.0-52.0); HEMOGLOBIN 13.1 g/dl (14.0-17.9); LYMPHOCYTES # (AUTO) 2.2 X10'3 (1.1-4.8); MEAN CORPUSCULAR HEMOGLOBIN 30.3 PG (27.0-31.0); MEAN CORPUSCULAR HGB CONC 34.5 g/dL (33.0-36.5); MEAN CORPUSCULAR VOLUME 87.8 FL (78-98); MEAN PLATELET VOLUME 8.1 FL (7.4-10.4); MONOCYTES # (AUTO) 0.5 X10'3 (0-0.9); MONOCYTES % (AUTO) 7.1 % (2-12); NEUTROPHILS # (AUTO) 4.5 X10'3 (1.8-7.7); NEUTROPHILS % (AUTO) 61.7 % (42-75); PLATELET COUNT 232 X10'3 (140-440); RED BLOOD COUNT 4.31 X10'6 (4.70-6.10); RED CELL DISTRIBUTION WIDTH 13.1 % (11.5-14.5); WHITE BLOOD COUNT 7.3 X10'3 (4.5-11.0)
--- NOTE | 2025-03-19 18:26 | PROGRESS NOTE ---
Daily Progress Note Providers to CC ~ Antibiotic Timeout Antibiotic Ordered?: No Subjective Patient was seen in his room nursing staff jomar is hesitant to discharge the patient because of drop in hemoglobin and hematocrit . i did rectal examination no signs of any blood in stools. Repeat hemoglobin and hematocrit stable he is tolerating full liquid diet well and ambulate. Objective Vital Signs Date Time Temp Pulse Resp B/P (MAP) Pulse Ox O2 Delivery O2 Flow Rate FiO2 03/19/25 14:20 16 03/19/25 10:00 98.2 64 124/82 (96) 100 Room Air 03/18/25 17:17 0 Result Diagram: 03/19/25 1443 03/19/25 0514 General-patient not in any acute distress, alert awake oriented, chronically ill-appearing HEENT-atraumatic normocephalic, neck supple without elevated JVD, no thyromegaly or carotid bruit. No lymphadenopathy bilaterally. Eyes-no icterus or pallor seen in eyes Chest-clear to auscultation bilaterally, breathing nonlabored no tachypnea, no wheezing, no crepitation, no crackles. Heart-S1-S2 normal, regular heart rate no murmur Abdomen bowel sounds positive on auscultation, soft nondistended , subjective signs of discomfort over abdomen, no guarding, no rigidity Skin no active skin rash Neurology-grossly intact, nonfocal alert awake oriented Extremity- no pedal edema able to move all 4 extremities Psychiatry - patient is not confused or agitated cooperated during physical examination Problem\Assessment\Plan Acute abdominal pain, ruled out acute pancreatitis History of pancreatitis Possible cyclic vomiting syndrome History of alcohol use disorder pain medication seeking behaviour Due to drop in the hemoglobin and hematocrit discharged on hold for today. Repeat hemoglobin and hematocrit stable. Patient is tolerating full liquid diet well. Possible discharge in a.m. if clinically stable. Date of Service: Mar 19, 2025 Billing Provider: AILIN COBURN MD Common Visit Codes: 24029-[id number] INP/OBS CARE(HIGH) AILIN COBURN MD Mar 19, 2025 18:26
[2025-03-19] MEDS: polyethylene glycol 3350 17gm powd pack PO SCH (21:00)
[2025-03-20] MEDS: HYDROmorphone 1 mg/ml syringe IV PRN (01:29)
[2025-03-20 06:00] VITALS: BP 118/83; PULSE 54; RESP 14; TEMP 96.8; O2SAT 98
[2025-03-20 06:16] LABS: BASOPHILS % (AUTO) 0.4 % (0-1); EOSINOPHILS # (AUTO) 0.1 X10'3 (0-0.9); EOSINOPHILS % (AUTO) 1.4 % (0-6); HEMATOCRIT 36.2 % (42.0-52.0); HEMOGLOBIN 12.6 g/dl (14.0-17.9); LYMPHOCYTES # (AUTO) 2.7 X10'3 (1.1-4.8); LYMPHOCYTES % (AUTO) 43.9 % (21-51); MEAN CORPUSCULAR HEMOGLOBIN 30.7 PG (27.0-31.0); MEAN CORPUSCULAR HGB CONC 34.7 g/dL (33.0-36.5); MEAN CORPUSCULAR VOLUME 88.5 FL (78-98); MEAN PLATELET VOLUME 8.9 FL (7.4-10.4); MONOCYTES # (AUTO) 0.4 X10'3 (0-0.9); MONOCYTES % (AUTO) 6.3 % (2-12); PLATELET COUNT 204 X10'3 (140-440); RED BLOOD COUNT 4.09 X10'6 (4.70-6.10); RED CELL DISTRIBUTION WIDTH 13.2 % (11.5-14.5); WHITE BLOOD COUNT 6.3 X10'3 (4.5-11.0)
[2025-03-20 06:29] LABS: ALANINE AMINOTRANSFERASE 13 U/L (12-78); ALBUMIN 3.6 G/DL (3.4-5.0); ALBUMIN/GLOBULIN RATIO 1.3 (1.1-1.5); ALKALINE PHOSPHATASE 84 IU/L (46-116); ANION GAP 9 (8-16); ASPARTATE AMINO TRANSFERASE 15 U/L (10-37); BILIRUBIN,TOTAL 0.4 MG/DL (0.1-1.0); BLOOD UREA NITROGEN 4 MG/DL (7-18); BUN/CREATININE RATIO 4.4 (10.0-20.0); CALCIUM 8.6 MG/DL (8.5-10.1); CHLORIDE 106 MMOL/L (99-107); CREATININE 0.91 MG/DL (0.60-1.10); GLUCOSE 83 MG/DL (70-104); MAGNESIUM 2.1 MG/DL (1.5-2.4); POTASSIUM 3.8 MMOL/L (3.5-5.1); SODIUM 142 MMOL/L (135-145); TOTAL CARBON DIOXIDE 27.3 MMOL/L (24-32); TOTAL PROTEIN 6.3 G/DL (6.4-8.2); eCRCL 113 ML/MIN; eGFR > 90 ML/MIN
[2025-03-20 08:00] VITALS: RESP 14; O2SAT 98
[2025-03-20] MEDS ORDERED: HYDR-3965 PO (10:10)
--- NOTE | 2025-03-20 19:40 | DISCHARGE SUMMARY ---
Discharge Summary Providers to CC ~ Discharge Summary Admission Diagnosis: ABDOMINAL PAIN Hospital Course DATE OF ADMISSION: March 18, 2025 DATE OF DISCHARGE: March 20, 2025 CBC testing done on March 20, 2025 WBC 6.3 hemoglobin 12.6 hematocrit 36.2 platelet count 204. Serum chemistry done on March 20, 2025 sodium 142 potassium 3.8 creatinine 0.91 GFR greater than 90 normal lipid panel normal liver enzymes. Lipase normal 24 CT ABDOMEN PELVIS-IMPRESSION: No bowel obstruction, free intraperitoneal air/fluid or sizable inflammatory c ollections identified on this noncontrast examination. Bladder wall thickening which may be in part due to underdistention. Correlate to exclude UTI/cystitis. Discharge Diagnosis\\Comment: Acute abdominal pain, ruled out acute pancreatitis History of pancreatitis Possible cyclic vomiting syndrome History of alcohol use disorder pain medication seeking behaviour Operations\\Procedures: none Consultants: none Complications: none Condition on DC: Stable New Medications: Hydrocodone Bit/Acetaminophen 5/325 MG ([place] 5/325 MG) 5 Mg/325 Mg Tablet 1 TAB PO Q8H PRN for pain for 7 Days, #20 TAB Continued Medications: Naloxone HCl (Narcan) 4 Mg/Actuation [place] 1 SPRAYS BOTHNARES ONCE for 1 Day, #1 EA 0 Refills ONDANSETRON ODT 4mg tablet (Ondansetron Odt) 4 Mg Tab.rapdis 1 TABLET PO Q6H PRN for nausea/vomiting, #12 TABLET Pantoprazole Sodium (Pantoprazole Sodium) 40 Mg Tablet.dr 40 MG PO BKF for 10 Days, #10 TAB.SR Discharge Summary: Acute abdominal pain, ruled out acute pancreatitis History of pancreatitis Possible cyclic vomiting syndrome History of alcohol use disorder pain medication seeking behaviour As per admitting provider's history and physical note" 34-year-old male with history of chronic pancreatitis presented to the ER with pain abdomen. Few reports that abdominal pain is more over the epigastric reason, rated 9/10, squeezing type, radiated to the the back. He do reports abdominal distention for the past one day. Endorses vomiting for the couple of days, 2-3 episodes. He complaint of loose stools, 2-3 associated with black, thick oily stools which was floating when he tried to flush the toilet, from the past couple of this. He denied nausea, hematemesis, hematochezia, melena, jaundice. He was not a chronic alcoholic but he used to take a few drinks six months back. He is sober for the past six months. He reports family history of hypercholesterolemia , hypertriglyceridemia for father. he has a appointment with a specialist at [facility] on Tuesday though is unable to tolerate the pain at home. Patient was seen here in ER for multiple times, frequent visitor to the ER. During hospitalization patient was clinically stable. Due to drop in hemoglobin and hematocrit i did rectal examination no signs of any blood in stools. Repeat hemoglobin and hematocrit stable he is tolerating full liquid diet well and ambulate. Patient persistently shows signs of pain medication seeking behavior. He mentioned he wants to get the pain medication for rescue and he has appointment in [facility] on Tuesday with his specialist ( unable to tell me the name of the doctor ) . He got very upset and rude when I told him that likely he will not be able to go on pain medication. Patient's all labs and diagnostic workup was unremarkable there was no clinical signs of acute pancreatitis. Patient was seen and examined on the day of discharge. All labs and diagnostic workup discussed with him before discharge. Patient does not have any primary care physician at this point of time and I strongly recommended to the patient to seek for primary care physician for his further medical care. General-patient not in any acute distress, alert awake oriented, chronically ill-appearing HEENT-atraumatic normocephalic, neck supple without elevated JVD, no thyromegaly or carotid bruit. No lymphadenopathy bilaterally. Eyes-no icterus or pallor seen in eyes Chest-clear to auscultation bilaterally, breathing nonlabored no tachypnea, no wheezing, no crepitation, no crackles. Heart-S1-S2 normal, regular heart rate no murmur Abdomen bowel sounds positive on auscultation, soft nondistended , subjective signs of discomfort over abdomen, no guarding, no rigidity Skin no active skin rash Neurology-grossly intact, nonfocal alert awake oriented Extremity- no pedal edema able to move all 4 extremities Psychiatry - patient is not confused or agitated cooperated during physical examination *Problems/Diagnosis: (1) Drug-seeking behavior Status: Acute (2) Chronic pain Status: Acute (3) Nonspecific abdominal pain Status: Acute Total Time Spent on D/C: > 30 Minutes Date of Service: Mar 20, 2025 Billing Provider: AILIN COBURN MD Common Visit Codes: 42624-WLL/OBS DISCH DAY >30min AILIN COBURN MD Mar 20, 2025 19:39
== END 2025-03-20 11:30 | disposition home or self-care (01) ==
LOC: ER 14:26 → INTOOBSV 21:44 → ED HOLD 21:44 → EDBEDREQ 03-19 01:02 → ORTHO 4S 03-19 01:44
PROVIDERS: ADMIT Internal Medicine Sleep Medicine; ATTEND Internal Medicine
DX: G89.29 Other chronic pain (principal); R10.13 Epigastric pain; K86.1 Other chronic pancreatitis; I25.10 Atherosclerotic heart disease of native coronary artery without angina pectoris; F10.10 Alcohol abuse, uncomplicated; R14.0 Abdominal distension (gaseous); Z76.5 Malingerer [conscious simulation]; Z79.899 Other long term (current) drug therapy; Z98.890 Other specified postprocedural states
CPT/HCPCS: 36415; 74176; 80053; 80061; 81003; 82948; 83690; 83735; 85025; 87081; 96361; 96365; 96366; 96372; 96375; 96376; 99285; G0378; J0131; J1171; J1644; J1885; J2270; J2405; J7030

== ENCOUNTER 2025-04-02 21:59 | Emergency (ER) | payer BC ==
[~2025-04-02] VITALS: Ht 175.3 cm; Wt 77.5 kg
[~2025-04-02 21:59] MED LIST changes: -ACET-1008 PO; -FOLI1TAB27 PO; -NICO-631 TD
[2025-04-02 22:07] VITALS: BP 130/83; PULSE 106; TEMP 98.3; O2SAT 99
--- NOTE | 2025-04-02 22:19 | ELECTROCARDIOGRAPH REPORT ---
[facility] Test Date: 2025-04-02 Test Time: 22:17:50 Pat Name: PANCHO CHU Department: EMERGENCY ROOM Patient ID: [id number] Room: Gender: M Color Tester: : 1990 Requested By: OLIVE SANTOS Order Number: [id number] Reading MD: Measurements Intervals [place] Rate: 107 P: 91 FL: 157 QRS: 78 QRSD: 88 T: -34 QT: 289 QTc: 386 Interpretive Statements Sinus tachycardia Right atrial enlargement Borderline repolarization abnormality Baseline wander in lead(s) II,III,aVR,aVL,aVF,V1,V4,V6 Please click the below link to view image of tracing.
--- NOTE | 2025-04-02 22:31 | RADIOLOGY REPORT ---
CHEST RADIOGRAPH Indication: CP Technique: Single frontal view of the chest was obtained COMPARISON: DI CHEST,SINGLE VIEW on DOS: 12/03/24, DI CHEST,SINGLE VIEW on DOS: 02/17/24, DI CHEST,SING LE VIEW on DOS: 09/01/23, DI CHEST,SINGLE VIEW on DOS: 08/07/23 FINDINGS: Lines and Tubes: None Lungs: Clear Pleura: No effusion. No pneumothorax. Cardiomediastinal contours: Unremarkable Bones: Unremarkable IMPRESSION: 1. No acute disease.
[2025-04-02 22:43] LABS: MEAN PLATELET VOLUME 8.7 FL (7.4-10.4); RED CELL DISTRIBUTION WIDTH 13.4 % (11.5-14.5)
[2025-04-02 23:03] LABS: CREATININE 0.96 MG/DL (0.60-1.10); TOTAL CARBON DIOXIDE 24.5 MMOL/L (24-32); eCRCL 107 ML/MIN; eGFR 89 ML/MIN
[2025-04-02 23:06] LABS: PRO BRAIN NATRIURETIC PEPTIDE < 30 PG/ML (0-125)
--- NOTE | 2025-04-02 23:35 | Physician Documentation ---
History of Present Illness ~ Chief Complaint: Abdominal Pain Stated Complaint: ABDOMINAL PAIN Time Seen by MD: 23:28 Primary Medical Doctor: None HPI Patient presents to the emergency room with chronic abdominal pain. He has been referred to [place] for specialist that has not yet made it there. He was seen two days ago at [facility] where workup including CT scan was performed which was negative for acute findings but did show large colonic stool burden. He reports that he defecates regularly once in sometimes twice a day. Medication Reconciliation Allergies: Coded Allergies: No Known Allergies (Unverified , 03/12/25) Scheduled Naloxone HCl (Narcan), 1 SPRAYS BOTHNARES ONCE Pantoprazole Sodium (Pantoprazole Sodium), 40 MG PO BKF Scheduled PRN ONDANSETRON ODT 4mg tablet (Ondansetron Odt), 1 TABLET PO Q6H PRN for nausea/vomiting Discontinued Medications Hydrocodone Bit/Acetaminophen 5/325 MG ([place] 5/325 MG), 1 TAB PO Q8H PRN for pain Discontinued Reason: Auto Discontinued Past Medical History Past Medical History: *GI/HEPATOBILIARY*, Pancreatitis Past Surgical History: no surgical history Patient History: FH: CAD (coronary artery disease) Alcohol Use: Sober Drug Use: none Lives In: Home Review of Systems ROS All review of systems negative except as per HPI Physical Exam Vital Signs: Temperature: 98.3, Source: Oral, Heart Rate: 106, Respiratory Rate: 16, BP: 130/83, Pulse Oximetry: 99, Weight: 77.450 Oxygen Flow Rate: 0 Physical Exam General: Patient is awake, alert, oriented x4 in mild distress Head: Normocephalic and atraumatic. Eyes: Conjunctival normal. EOMI. PERRL. ENT: Mucous membranes moist. Neck: Supple, trachea is midline. Chest: Clear to auscultation bilaterally without rales, rhonchi, or wheezes. There is no accessory muscle use or retractions. Cardiac: RRR without murmurs, gallops, or rubs. Abd: Soft, nondistended, mild diffuse tenderness to palpation without peritonitis Progress Results/Orders Results/Orders Orders - HEMA ESPOSITO MD Chest,Single View (04/02/25 22:21) Monitor (04/02/25 22:12) Saline Lock (04/02/25 22:12) Oxygen (04/02/25 22:12) Hs Troponin I W Calculations (04/03/25 00:12) Hs Troponin I W Calculations (04/03/25 01:12) Urinalysis, Cult If Indicated (04/02/25 22:12) Completed Orders - HEMA ESPOSITO MD Chest,Single View (04/02/25 22:21) Cbc/Diff (04/02/25 22:12) BMP (04/02/25 22:12) PBNP (04/02/25 22:12) Electrocardiogram (04/02/25 22:12) Hs Troponin I W Calculations (04/02/25 22:12) Lipase (04/02/25 22:12) Vital Signs 04/02/25 22:07 Temp 98.3 Pulse 106 Resp 16 B/P (MAP) 130/83 Pulse Ox 99 O2 Flow Rate 0 Laboratory Tests Test 04/02/25 22:32 White Blood Count 9.6 Red Blood Count 4.91 Hemoglobin 15.0 Hematocrit 43.2 Mean Corpuscular Volume 88.0 Mean Corpuscular Hemoglobin 30.6 Mean Corpuscular Hemoglobin Concent 34.8 Red Cell Distribution Width 13.4 Platelet Count 274 Mean Platelet Volume 8.7 Neutrophils (%) (Auto) 81.2 H Lymphocytes (%) (Auto) 14.3 L Monocytes (%) (Auto) 3.8 Eosinophils (%) (Auto) 0.3 Basophils (%) (Auto) 0.4 Neutrophils # (Auto) 7.8 H Lymphocytes # (Auto) 1.4 Monocytes # (Auto) 0.4 Eosinophils # (Auto) 0.0 Basophils # (Auto) 0.0 CBC Comment Sodium Level 136 Potassium Level 4.3 Chloride Level 103 Carbon Dioxide Level 24.5 Anion Gap 9 Blood Urea Nitrogen 5 L Creatinine 0.96 Estimated GFR/1.73 m2 89 BUN/Creatinine Ratio 5.2 L Glucose Level 134 H Calcium Level 9.3 Troponin I High Sensitivity 16 Pro-B-Type Natriuretic Peptide < 30 Albumin 4.6 Lipase 20 Chemistry Comments Medical Decision Making Findings Patient presents to the emergency room with continued abdominal pain which is chronic in nature. Differentials include but are not limited to constipation, diverticulitis, cholecystitis, pancreatitis therefore emergent labs ordered which were reassuring. Patient just had a CT scan performed two days ago with negative findings. I believe the risk of radiation exposure outweighs any benefit at this juncture. Symptoms are chronic in nature in the need to follow up with his doctor discussed Departure Disposition: 01 HOME / SELF CARE / HOMELESS Impression: Primary Impression: Abdominal pain Condition: Stable Discharge Instructions: Abdominal Pain (Nonspecific) Additional Instructions: Continue to work with your doctor and follow up with your career specialist Referrals: NO PRIMARY CARE PROVIDER (PCP) Signature Scribe Signature: No scribe Attestation: The note accurately reflects work and decisions made by me.Hema Esposito MD 04/02/25 23:35 HEMA ESPOSITO MD Apr 02, 2025 23:35
[2025-04-02] MEDS: ketorolac trometh 15mg/ml vial 15 MG/ML ML IV ONE (23:51)
[2025-04-02 23:52] VITALS: RESP 16
[2025-04-02] MEDS: HYDROcodone/acetaminophen 5mg/325mg tablet PO ONE (23:52)
== END 2025-04-03 01:24 | disposition home or self-care (01) ==
LOC: ER 22:00
DX: R10.9 Unspecified abdominal pain (principal); R06.02 Shortness of breath; F10.90 Alcohol use, unspecified, uncomplicated; Y90.9 Presence of alcohol in blood, level not specified
CPT/HCPCS: 36415; 71045; 80048; 83690; 83880; 84484; 85025; 93005; 96374; 99285; J1885